=== PATIENT | male | born 1965 | race Caucasian/White ===

== ENCOUNTER 2017-06-03 10:43 | Emergency (ER) | payer OTHER ==
[2017-06-03] MEDS ORDERED: Hydromorphone 1 mg/ml Ampule IV ONE (11:02)
[2017-06-03] MEDS ORDERED: BENADRYL 50 MG/ML IV ONE (11:02)
[2017-06-03] MEDS ORDERED: BENADRYL 50 MG/ML ONE (11:08)
[2017-06-03] MEDS ORDERED: Lactated Ringers 1,000 ML IV ONE (11:09)
[2017-06-03] MEDS ORDERED: Hydromorphone 1 mg/ml Ampule ONE (11:09)
[2017-06-03 11:27] LABS: BASOPHIL % 0.4 % (0.0-0.4); Eosinophil % 5.3 % (0.00-5.0); Granulocytes % 58.9 % (36.0-66.0); Lymphocytes % 26.4 % (24.0-44.0); Mean Cell Volume 94.5 fl (78-100); Mean Corpuscular Hemoglobin 31.2 pg (26-32); Platelet Count 381 K/mm3 (150-450); Red Blood Count 3.97 M/mm3 (4.1-5.6); Red Cell Distribution Width 13.6 % (11.5-14.0); White Blood Count 8.9 K/mm3 (4.0-10.5)
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
[2017-06-03] MEDS ORDERED: Lactated Ringers 1,000 ML IV SCH (11:30)
[2017-06-03 11:43] LABS: INR 0.93 (0.8-3.0); PROTIME 10.5 SECONDS (8.83-12.87)
[2017-06-03 11:45] LABS: PTT 34.3 SECONDS (24.1-36.1)
[2017-06-03 11:53] LABS: ALKALINE PHOSPHATASE 74 U/L (46-116); ANION GAP 12.9 MEQ/L (5-15); BLOOD UREA NITROGEN 17 mg/dL (9-20); CHLORIDE 105 mEq/L (98-107); Glucose 103 MG/DL (70-110); Potassium 4.2 mEq/L (3.5-5.1); SGOT/AST 25 U/L (15-37); SGPT/ALT 24 U/L (12-78); SODIUM 139 mEq/L (136-145); Total Protein 7.2 gm/dL (6.4-8.2)
[2017-06-03 11:57] VITALS: BP 142/99; PULSE 76
--- NOTE | 2017-06-03 12:18 | XRAY ---
Indication: Pain following fall. Comparison: None 3 views of the right shoulder demonstrates tiny humeral head bone island and a few pulmonary calcified granulomas. No other bony, articular, or soft tissue abnormalities.
--- NOTE | 2017-06-03 12:28 | XRAY ---
Indication: Pain following crush injury. Multiple contiguous axial images obtained through the chest using 80 cc Isovue 370 contrast. Comparison: None Lungs demonstrates mild bilateral pulmonary emphysema with biapical subpleural cystic changes. There are scattered bilateral calcified granulomas. In the superior segment of the right lower lobe, there is a subpleural spiculated mass measuring 1.3 x 1.2 x 1.7 cm worrisome for malignancy. Same mass demonstrates chunky central calcification suggesting granulomatous. Minimal bilateral dependent atelectasis. No infiltrate, consolidation, or effusion. Heart is not enlarged. Aorta is normal in course and caliber. No pathologic mediastinal/hilar lymphadenopathy. Bony thorax intact. Limited upper abdomen including adrenal glands are unremarkable. Impression: 1. Right lower lobe spiculated mass worrisome for malignancy. [place] calcification suggests granulomatous as there is also evidence for old granulomatous disease elsewhere. PET/CT may yield further information. 2. Pulmonary emphysema and biapical subpleural cystic changes. 3. No acute cardiopulmonary abnormalities or fracture. CT DI 13.21
[2017-06-03 13:18] VITALS: O2SAT 97
== END 2017-06-03 13:11 | disposition home or self-care (01) ==
LOC: ED 10:43
DX: S20.211A Contusion of right front wall of thorax, initial encounter (principal); W24.0XXA Contact with lifting devices, not elsewhere classified, initial encounter
CPT/HCPCS: 36000; 36415; 71260; 73030; 80053; 82550; 85025; 85610; 85730; 96360; 96361; 99284; J1170; J1200

== ENCOUNTER 2020-03-22 07:50 | Day surgery (SDC) | payer OTHER ==
[2013-07-01 17:22] VITALS: BP 120/80
[2020-03-22] MEDS ORDERED: Depo-Medrol 40 MG/ML IM ONE (07:51)
[2020-03-22] MEDS ORDERED: Sodium Chloride 0.9(Preservative Free) 10 ML IJ ONE (07:51)
[2020-03-22] MEDS ORDERED: Ketamine HCl 50 MG/ML ONE (09:42)
[2020-03-22] MEDS ORDERED: DIPRIVAN 200 MG/20 ML IV ONE (09:42)
[2020-03-22] MEDS ORDERED: Lactated Ringers 1,000 ML IV ONE (12:49)
--- NOTE | 2020-03-22 14:29 | XRAY ---
22 seconds fluoroscopy time in surgery for left L4-S1 transforaminal ABIGAIL.
--- NOTE | 2020-03-25 21:13 | XRAY ---
Indication: Left transforaminal L4-S1 ABIGAIL. Intraoperative fluoroscopy was provided for 22 seconds. 4 digital spot images submitted for interpretation demonstrate 2 posterior needle tips projected over the expected course of the left L4 and L5 nerve roots. A small amount of contrast has been injected for needle placement. Correlate with intraoperative findings/report.
== END 2020-03-22 10:12 | disposition home or self-care (01) ==
LOC: SDC-PAIN 07:50
PROVIDERS: ATTEND Psychiatry & Neurology Pain Medicine
DX: M54.16 Radiculopathy, lumbar region (principal); E11.9 Type 2 diabetes mellitus without complications; J44.9 Chronic obstructive pulmonary disease, unspecified; I10 Essential (primary) hypertension; I25.10 Atherosclerotic heart disease of native coronary artery without angina pectoris; Z79.899 Other long term (current) drug therapy
CPT/HCPCS: 64483; 64484; 72100; 77003; 82962; J1030; J2704; Q9966

== ENCOUNTER 2020-11-19 17:43 | Emergency (ER) | payer OTHER ==
[2020-11-19] MEDS ORDERED: Lasix 40 MG/4 ML IV ONE (18:03)
[2020-11-19] MEDS ORDERED: solu-MEDROL 125 MG IV ONE (18:03)
[2020-11-19] MEDS ORDERED: DUONEB 0.5-3 MG/3 ml Neb IH ONE ×2 (18:03→18:12)
[2020-11-19] MEDS ORDERED: BABY ASPIRIN 81 MG CHEW PO ONE (18:05)
[2020-11-19] MEDS ORDERED: solu-MEDROL 125 MG ONE (18:10)
[2020-11-19] MEDS ORDERED: Lasix 40 MG/4 ML ONE (18:10)
[2020-11-19] MEDS ORDERED: BABY ASPIRIN 81 MG CHEW ONE (18:10)
[2020-11-19 18:35] LABS: Hematocrit 42.8 % (42-50); Hemoglobin 13.5 gm/dl (12.5-18.0); Mean Cell Volume 94.5 fl (78-100); Mean Corpuscular Hemoglobin 29.8 pg (26-32); Mean Corpuscular Hgb Concent. 31.5 g/dl (32-36); Mean Platelet Volume 10.3 fl (7.5-11.0); Platelet Count 440 K/mm3 (150-450); Red Blood Count 4.53 M/mm3 (4.1-5.6); Red Cell Distribution Width 13.9 % (11.5-14.0)
[2020-11-19 18:45] LABS: INR 1.38 (0.8-3.0); PROTIME 15.7 SECONDS (8.83-12.87)
--- NOTE | 2020-11-19 18:50 | ERPHSYRPT ---
- History of Present Illness Source: patient Exam Limitations: no limitations Patient Subjective Stated Complaint: Pt began having shortness of breath on Friday and began having thomas chest pain yesterday, hx of CHF Triage Nursing Assessment: Pt was brought to the ER by a friend, hypertensive, tachycardic, short of breath, no edema, rates thomas chest pain as 05/22, skin n/w/d , lungs clear Timing/Duration: day(s), gradual onset, worse Activities at Onset: activity, rest Severity of Dyspnea-Max: moderate Severity of Dyspnea-Current: moderate Possible Cause: occasional episodes Modifying Factors: Improves With: rest. Worsens With: coughing, exertion Associated Symptoms: constant, cough, chest pain/discomfort, wheezing, heaviness, productive cough, tightness Hx Tetanus, Diphtheria Vaccination/Date Given: Yes (2008) Hx Influenza Vaccination/Date Given: No Hx Pneumococcal Vaccination/Date Given: No <ROBIN CHANCE - Last Filed: 11/19/20 18:46> <LUCIA BOWLING - Last Filed: 11/19/20 22:43> - History of Present Illness Time Seen by Provider: 11/19/20 17:48 Physician History: 55 years old male with history of status post stenting, congestive heart failure, COPD, tobacco abuse, CKD, chronic liver disease presented in the ER with 2 days history of progressively increasing shortness of breath and cough productive of clear to yellow sputum. Patient report initial shortness of breath with activity and now even at resting since yesterday and is also having substernal chest pain/tightness mild to moderate intensity which is aggravated with coughing and activity. Denies any fever or chills. Denies any sick contact. Patient denies any lower extremity swelling. He has taken oral Lasix today as well but did not seem helping. Patient does not take Lasix regularly. Patient reports symptoms similar to last time when he was in CHF exacerbation. (ROBIN CHANCE) Allergies/Adverse Reactions: codeine Adverse Reaction (Severe, Verified 11/19/20 17:57) black out varenicline tartrate [From Chantix] Adverse Reaction (Mild, Verified 11/19/20 17:57) Rash Penicillins Adverse Reaction (Verified 11/19/20 17:57) unsure but thinks is allergic Home Medications: Furosemide 40 mg [Lasix 40 MG] 1 ea DAILY 11/19/20 [History] Hydralazine HCl 1 ea DAILY 11/19/20 [History] Lisinopril 5 mg [Zestril 5 MG] 1 ea DAILY 11/19/20 [History] Metoprolol Succinate 50 mg [Toprol Xl 50 MG] 1 ea DAILY 11/19/20 [History] Travel Risk - International Travel Have you traveled outside of the country in past 3 weeks: No - Coronavirus Screening Are you exhibiting any of the following symptoms?: Yes Symptoms: Shortness of Breath Close contact with a COVID-19 positive Pt in past 14-21 Days: No <ROBIN CHANCE - Last Filed: 11/19/20 18:46> - Review of Systems Constitutional: Fatigue, Weakness Eyes: No Symptoms Ears, Nose, & Throat: No Symptoms Respiratory: Cough, Dyspnea, Dyspnea on Exertion (GILES), Wheezing Cardiac: Chest Pain Abdominal/Gastrointestinal: No Symptoms Genitourinary Symptoms: No Symptoms Musculoskeletal: Myalgias Skin: No Symptoms Neurological: No Symptoms Psychological: No Symptoms Hematologic/Lymphatic: No Symptoms Immunological/Allergic: No Symptoms <ROBIN CHANCE - Last Filed: 11/19/20 18:46> - Past Medical History Pertinent Past Medical History: Yes Cardiac History: Other Respiratory History: COPD Endocrine Medical History: Liver Disease Musculoskeletal History: Other History: Other Psycho-Social History: Depression Male Reproductive Disorders: Prostate Problems Other Medical History: states leaky heart valves x2, chronic back pain, kidney disease, liver disease - Past Surgical History Past Surgical History: Yes Cardiac: Cardiac Catheterization Gastrointestinal: Hernia Repair Musculoskeletal: Orthopedic Surgery Other Surgical History: knee surgery ,hernia, left wrist - Social History Smoking Status: Former smoker Exposure to second hand smoke: Yes Drug Use: marijuana Patient Lives Alone: Yes <ROBIN CHANCE - Last Filed: 11/19/20 18:46> - Physical Exam General Appearance: mild distress, alert Eye Exam: PERRL/EOMI, eyes nml inspection Ears, Nose, Throat Exam: hearing grossly normal, nasal congestion, pharyngeal erythema Neck Exam: normal inspection, non-tender, supple, full range of motion Respiratory Exam: respiratory distress, accessory muscle use, rhonchi, wheezing Cardiovascular/Chest Exam: normal heart sounds, regular rate/rhythm Abdominal/Gastrointestinal Exam: soft, normal bowel sounds, No tenderness Extremity Exam: non-tender, normal range of motion, normal inspection Neurologic Exam: alert, oriented x 3, cooperative Skin Exam: normal color SpO2 Interpretation: normal SpO2: 99 O2 Delivery: Room Air <ROBIN CHANCE - Last Filed: 11/19/20 18:46> - Nursing Vital Signs Nursing Vital Signs: Initial Vital Signs Temperature 97.6 F 11/19/20 17:44 Pulse Rate 94 H 11/19/20 17:44 Respiratory Rate 31 H 11/19/20 17:44 Blood Pressure 145/122 11/19/20 17:44 O2 Sat by Pulse Oximetry 99 11/19/20 17:44 Pain Scale Pain Intensity 2 - Course EKG Interpreted by Me: RATE (93), Sinus Rhythm, NORMAL AXIS, NORMAL INTERVALS, Other (LVH. Nonspecific ST changes) <ROBIN CHANCE - Last Filed: 11/19/20 18:46> - Course Nursing assessment & vital signs reviewed: Yes - Radiology Exams Chest X-ray Interpretation: Interpreted by me, No Pneumonia - CT Exams Chest CT Interpretation: Tele-radiologist Report (Severe paraseptal emphysema. No pulmonary embolus or aortic dissection. Moderate centrilobular emphysema.) <LUCIA BOWLING - Last Filed: 11/19/20 22:43> Ordered Tests: Active Orders 24 hr Category Date Time Status Chimney [employer] Helper STAT Care 11/19/20 18:04 Active EKG-ER Only STAT Care 11/19/20 18:03 Active EKG-ER Only STAT Care 11/19/20 22:13 Active IV Insertion STAT Care 11/19/20 18:03 Active CHEST 1 VIEW (PORTABLE) Stat Exams 11/19/20 18:16 Taken CHEST WITH CONTRAST [CT] Stat Exams 11/19/20 20:45 Taken BLOOD CULTURE Stat Lab 11/19/20 18:31 Received CBC W DIFF Stat Lab 11/19/20 18:31 Completed CMP Stat Lab 11/19/20 18:31 Completed D-DIMER QUANTITATIVE Stat Lab 11/19/20 18:00 Completed Lactic Acid Stat Lab 11/19/20 18:15 Completed Lactic Acid Stat Lab 11/19/20 20:20 Completed MAGNESIUM Stat Lab 11/19/20 18:31 Completed Manual Differential NC Stat Lab 11/19/20 18:31 Completed NT PRO BNP Stat Lab 11/19/20 18:31 Completed POCT GLUCOSE Stat Lab 11/19/20 17:54 Completed PROTIME WITH INR Stat Lab 11/19/20 18:31 Completed PTT Stat Lab 11/19/20 18:31 Completed TROPONIN Q3H Lab 11/19/20 18:31 Completed TROPONIN Q3H Lab 11/19/20 21:28 Completed TROPONIN Q3H Lab 11/20/20 00:15 Ordered TROPONIN Q3H Lab 11/20/20 03:15 Ordered TROPONIN Q3H Lab 11/20/20 06:15 Ordered UA W/RFX UR CULTURE Stat Lab 11/19/20 18:33 Completed Respiratory Therapy Assessment DAILY RT 11/19/20 18:22 Active Medication Summary Discontinued Medications Generic Name Dose Route Start Last Admin Trade Name Freq PRN Reason Stop Dose Admin Albuterol/Ipratropium 3 ml 11/19/20 18:03 11/19/20 18:13 Duoneb 0.5-3 Mg/3 Ml Neb IH 11/19/20 18:04 3 ml STAT ONE Administration Albuterol/Ipratropium Confirm 11/19/20 18:12 Duoneb 0.5-3 Mg/3 Ml Neb Administered 11/19/20 18:13 Dose 3 ml IH .STK-MED ONE Aspirin 324 mg 11/19/20 18:05 11/19/20 18:13 Baby Aspirin 81 Mg Chew PO 11/19/20 18:06 324 mg STAT ONE Administration Aspirin Confirm 11/19/20 18:10 Baby Aspirin 81 Mg Chew Administered 11/19/20 18:11 Dose 324 mg .ROUTE .STK-MED ONE Furosemide 40 mg 11/19/20 18:03 11/19/20 18:13 Lasix 40 Mg/4 Ml IV 11/19/20 18:04 40 mg STAT ONE Administration Furosemide Confirm 11/19/20 18:10 Lasix 40 Mg/4 Ml Administered 11/19/20 18:11 Dose 40 mg .ROUTE .STK-MED ONE Methylprednisolone Sodium Succinate 125 mg 11/19/20 18:03 11/19/20 18:13 Solu-Medrol 125 Mg IV 11/19/20 18:04 125 mg STAT ONE Administration Methylprednisolone Sodium Succinate Confirm 11/19/20 18:10 Solu-Medrol 125 Mg Administered 11/19/20 18:11 Dose 125 mg .ROUTE .STK-MED ONE Nitroglycerin 0.4 mg 11/19/20 22:20 11/19/20 22:27 Nitrostat 0.4 Mg (Ed) SL 11/19/20 22:21 0.4 mg STAT ONE Administration Lab/Rad Data: Laboratory Result Diagrams 11/19/20 18:31 11/19/20 18:31 Laboratory Results 11/19/20 11/19/20 11/19/20 Range/Units 21:28 20:20 18:33 WBC (4.0-10.5) K/mm3 RBC (4.1-5.6) M/mm3 Hgb (12.5-18.0) gm/dl Hct (42-50) % MCV (78-100) fl MCH (26-32) pg MCHC (32-36) g/dl RDW (11.5-14.0) % Plt Count (150-450) K/mm3 MPV (7.5-11.0) fl Segmented Neutrophils (36.-66.) % Lymphocytes (Manual) (24-44) % Monocytes (Manual) (0.0-12.0) % Eosinophils (Manual) (0.00-3.0) % Basophils (Manual) (0.0-1.0) % Platelet Estimate (NORMAL) RBC Morphology PT (8.83-12.87) SECONDS INR (0.8-3.0) APTT (24.1-36.1) SECONDS D-Dimer (215-500) ng/mL Sodium (137-145) mmol/L Potassium (3.5-5.1) mmol/L Chloride (98-107) mmol/L Carbon Dioxide (22-30) mmol/L Anion Gap (5-15) MEQ/L BUN (9-20) mg/dL Creatinine (0.66-1.25) mg/dL Estimated GFR ML/MIN Glucose (74-106) mg/dL POC Glucometer (74 to 106) mg/dL Lactic Acid 2.1 H (0.4-2.0) Calcium (8.4-10.2) mg/dL Magnesium (1.6-2.3) mg/dL Total Bilirubin (0.2-1.3) mg/dL AST (17-59) U/L ALT (0-50) U/L Alkaline Phosphatase (38-126) U/L Troponin I 0.044 H* (0.000-0.034) ng/mL NT-Pro-B Natriuret Pep (0-900) pg/mL Serum Total Protein (6.3-8.2) g/dL Albumin (3.5-5.0) g/dL Urine Color STRAW (YELLOW) Urine Appearance CLEAR (CLEAR) Urine pH 6.0 (5-6) Ur Specific [place] 1.005 (1.005-1.025) Urine Protein NEGATIVE (Negative) Urine Ketones NEGATIVE (NEGATIVE) Urine Blood NEGATIVE (0-5) Thuan/ul Urine Nitrite NEGATIVE (NEGATIVE) Urine Bilirubin NEGATIVE (NEGATIVE) Urine Urobilinogen 2 (0-1) mg/dL Ur Leukocyte Esterase NEGATIVE (NEGATIVE) Urine WBC (Auto) 0-2 (0-5) /HPF Urine RBC (Auto) NONE (0-2) /HPF U Hyaline Cast (Auto) 0-2 (0-2) /LPF U Epithel Cells (Auto) RARE (FEW) /HPF Urine Bacteria (Auto) NONE SEEN (NEGATIVE) /HPF Urine Culture Reflexed NO (NO) Urine Glucose NEGATIVE (NEGATIVE) mg/dL 11/19/20 11/19/20 11/19/20 Range/Units 18:31 18:31 18:31 WBC (4.0-10.5) K/mm3 RBC (4.1-5.6) M/mm3 Hgb (12.5-18.0) gm/dl Hct (42-50) % MCV (78-100) fl MCH (26-32) pg MCHC (32-36) g/dl RDW (11.5-14.0) % Plt Count (150-450) K/mm3 MPV (7.5-11.0) fl Segmented Neutrophils (36.-66.) % Lymphocytes (Manual) (24-44) % Monocytes (Manual) (0.0-12.0) % Eosinophils (Manual) (0.00-3.0) % Basophils (Manual) (0.0-1.0) % Platelet Estimate (NORMAL) RBC Morphology PT 15.7 H (8.83-12.87) SECONDS INR 1.38 (0.8-3.0) APTT 31.1 (24.1-36.1) SECONDS D-Dimer (215-500) ng/mL Sodium 137 (137-145) mmol/L Potassium 4.2 (3.5-5.1) mmol/L Chloride 104 (98-107) mmol/L Carbon Dioxide 23 (22-30) mmol/L Anion Gap 13.9 (5-15) MEQ/L BUN 21 H (9-20) mg/dL Creatinine 1.15 (0.66-1.25) mg/dL Estimated GFR > 60.0 ML/MIN Glucose 106 (74-106) mg/dL POC Glucometer (74 to 106) mg/dL Lactic Acid (0.4-2.0) Calcium 9.5 (8.4-10.2) mg/dL Magnesium 1.7 (1.6-2.3) mg/dL Total Bilirubin 2.10 H (0.2-1.3) mg/dL AST 145 H (17-59) U/L ALT 166 H (0-50) U/L Alkaline Phosphatase 120 (38-126) U/L Troponin I 0.045 H* (0.000-0.034) ng/mL NT-Pro-B Natriuret Pep 4460 H (0-900) pg/mL Serum Total Protein 6.9 (6.3-8.2) g/dL Albumin 3.9 (3.5-5.0) g/dL Urine Color (YELLOW) Urine Appearance (CLEAR) Urine pH (5-6) Ur Specific [place] (1.005-1.025) Urine Protein (Negative) Urine Ketones (NEGATIVE) Urine Blood (0-5) Thuan/ul Urine Nitrite (NEGATIVE) Urine Bilirubin (NEGATIVE) Urine Urobilinogen (0-1) mg/dL Ur Leukocyte Esterase (NEGATIVE) Urine WBC (Auto) (0-5) /HPF Urine RBC (Auto) (0-2) /HPF U Hyaline Cast (Auto) (0-2) /LPF U Epithel Cells (Auto) (FEW) /HPF Urine Bacteria (Auto) (NEGATIVE) /HPF Urine Culture Reflexed (NO) Urine Glucose (NEGATIVE) mg/dL 02/07/21 02/07/21 02/07/21 Range/Units 18:31 18:15 18:00 WBC 13.0 H (4.0-10.5) K/mm3 RBC 4.53 (4.1-5.6) M/mm3 Hgb 13.5 (12.5-18.0) gm/dl Hct 42.8 (42-50) % MCV 94.5 (78-100) fl MCH 29.8 (26-32) pg MCHC 31.5 L (32-36) g/dl RDW 13.9 (11.5-14.0) % Plt Count 440 (150-450) K/mm3 MPV 10.3 (7.5-11.0) fl Segmented Neutrophils 69 H (36.-66.) % Lymphocytes (Manual) 19 L (24-44) % Monocytes (Manual) 8 (0.0-12.0) % Eosinophils (Manual) 2 (0.00-3.0) % Basophils (Manual) 2 H (0.0-1.0) % Platelet Estimate NORMAL (NORMAL) RBC Morphology NORMAL PT (8.83-12.87) SECONDS INR (0.8-3.0) APTT (24.1-36.1) SECONDS D-Dimer 2347 H* (215-500) ng/mL Sodium (137-145) mmol/L Potassium (3.5-5.1) mmol/L Chloride (98-107) mmol/L Carbon Dioxide (22-30) mmol/L Anion Gap (5-15) MEQ/L BUN (9-20) mg/dL Creatinine (0.66-1.25) mg/dL Estimated GFR ML/MIN Glucose (74-106) mg/dL POC Glucometer (74 to 106) mg/dL Lactic Acid 2.2 H (0.4-2.0) Calcium (8.4-10.2) mg/dL Magnesium (1.6-2.3) mg/dL Total Bilirubin (0.2-1.3) mg/dL AST (17-59) U/L ALT (0-50) U/L Alkaline Phosphatase (38-126) U/L Troponin I (0.000-0.034) ng/mL NT-Pro-B Natriuret Pep (0-900) pg/mL Serum Total Protein (6.3-8.2) g/dL Albumin (3.5-5.0) g/dL Urine Color (YELLOW) Urine Appearance (CLEAR) Urine pH (5-6) Ur Specific [place] (1.005-1.025) Urine Protein (Negative) Urine Ketones (NEGATIVE) Urine Blood (0-5) Thuan/ul Urine Nitrite (NEGATIVE) Urine Bilirubin (NEGATIVE) Urine Urobilinogen (0-1) mg/dL Ur Leukocyte Esterase (NEGATIVE) Urine WBC (Auto) (0-5) /HPF Urine RBC (Auto) (0-2) /HPF U Hyaline Cast (Auto) (0-2) /LPF U Epithel Cells (Auto) (FEW) /HPF Urine Bacteria (Auto) (NEGATIVE) /HPF Urine Culture Reflexed (NO) Urine Glucose (NEGATIVE) mg/dL 11/19/20 Range/Units 17:54 WBC (4.0-10.5) K/mm3 RBC (4.1-5.6) M/mm3 Hgb (12.5-18.0) gm/dl Hct (42-50) % MCV (78-100) fl MCH (26-32) pg MCHC (32-36) g/dl RDW (11.5-14.0) % Plt Count (150-450) K/mm3 MPV (7.5-11.0) fl Segmented Neutrophils (36.-66.) % Lymphocytes (Manual) (24-44) % Monocytes (Manual) (0.0-12.0) % Eosinophils (Manual) (0.00-3.0) % Basophils (Manual) (0.0-1.0) % Platelet Estimate (NORMAL) RBC Morphology PT (8.83-12.87) SECONDS INR (0.8-3.0) APTT (24.1-36.1) SECONDS D-Dimer (215-500) ng/mL Sodium (137-145) mmol/L Potassium (3.5-5.1) mmol/L Chloride (98-107) mmol/L Carbon Dioxide (22-30) mmol/L Anion Gap (5-15) MEQ/L BUN (9-20) mg/dL Creatinine (0.66-1.25) mg/dL Estimated GFR ML/MIN Glucose (74-106) mg/dL POC Glucometer 97 (74 to 106) mg/dL Lactic Acid (0.4-2.0) Calcium (8.4-10.2) mg/dL Magnesium (1.6-2.3) mg/dL Total Bilirubin (0.2-1.3) mg/dL AST (17-59) U/L ALT (0-50) U/L Alkaline Phosphatase (38-126) U/L Troponin I (0.000-0.034) ng/mL NT-Pro-B Natriuret Pep (0-900) pg/mL Serum Total Protein (6.3-8.2) g/dL Albumin (3.5-5.0) g/dL Urine Color (YELLOW) Urine Appearance (CLEAR) Urine pH (5-6) Ur Specific [place] (1.005-1.025) Urine Protein (Negative) Urine Ketones (NEGATIVE) Urine Blood (0-5) Thuan/ul Urine Nitrite (NEGATIVE) Urine Bilirubin (NEGATIVE) Urine Urobilinogen (0-1) mg/dL Ur Leukocyte Esterase (NEGATIVE) Urine WBC (Auto) (0-5) /HPF Urine RBC (Auto) (0-2) /HPF U Hyaline Cast (Auto) (0-2) /LPF U Epithel Cells (Auto) (FEW) /HPF Urine Bacteria (Auto) (NEGATIVE) /HPF Urine Culture Reflexed (NO) Urine Glucose (NEGATIVE) mg/dL - Progress Blood Culture(s) Obtained: Yes <ROBIN CHANCE - Last Filed: 11/19/20 18:46> - Progress Discussed with : Other (Spoke with Dr. Maciel([id number]) who accepted pt for transfer to [facility] as a direct admission.) Counseled pt/family regarding: lab results, diagnosis, rad results <LUCIA BOWLING - Last Filed: 11/19/20 22:43> - Progress Progress Note: 11/19/20 18:50 55 years old is evaluated for increasing shortness of breath and chest pain. EKG showed normal sinus rhythm with no acute ST elevations. He is given DuoNeb and steroid along with 40 mg IV Lasix. Patient is feeling mild improvement on reevaluation after neb treatment. Care is transferred to Dr. Bowling at shift change for reevaluation and final disposition. (ROBIN CHANCE) 11/19/20 20:[address] Bowling @ 1951: perrl, eomi, pharynx minimally erythematous, lungs clear at this time, no cardiac rub, abdominal b.s. normal, no ankle edema, alert & cooperative. Pt states he has had right sided abdominal pain. 11/19/20 22:28 Repeat EKG @ 2220: sinus rhythm @ 77/min, normal axis, LVH, non-specific ST changes. (LUCIA BOWLING) <ROBIN CHANCE - Last Filed: 11/19/20 18:46> - Departure Departure Disposition: Transfer ([facility]) Critical Care Time: No <LUCIA BOWLING - Last Filed: 11/19/20 22:43> - Departure Clinical Impression: Chest pain, shortness of air, Elevated d-dimer, elevated troponin, elevated AST, ALT, BILIRUBIN, COPD (chronic obstructive pulmonary disease), Depression Condition: Stable Referrals: ALPESH MACIEL [Primary Care Provider] - Instructions: Chronic Obstructive Pulmonary Disease
[2020-11-19 18:59] LABS: ALBUMIN 3.9 g/dL (3.5-5.0); ALKALINE PHOSPHATASE 120 U/L (38-126); ANION GAP 13.9 MEQ/L (5-15); BLOOD UREA NITROGEN 21 mg/dL (9-20); CHLORIDE 104 mmol/L (98-107); Calcium 9.5 mg/dL (8.4-10.2); Carbon Dioxide 23 mmol/L (22-30); Creatinine 1 1.15 mg/dL (0.66-1.25); EST GLOMERULAR FILTRATION RATE > 60.0 ML/MIN; Glucose 106 mg/dL (74-106); MAGNESIUM 1.7 mg/dL (1.6-2.3); NT PRO BNP 4460 pg/mL (0-900); Potassium 4.2 mmol/L (3.5-5.1); SGOT/AST 145 U/L (17-59); SGPT/ALT 166 U/L (0-50); SODIUM 137 mmol/L (137-145); Total Protein 6.9 g/dL (6.3-8.2)
[2020-11-19 19:39] LABS: PTT 31.1 SECONDS (24.1-36.1)
[2020-11-19 20:01] LABS: Basophil 2 % (0.0-1.0); Eosinophil 2 % (0.00-3.0); Lymphocytes 19 % (24-44); Monocyte 8 % (0.0-12.0); Neutrophils 69 % (36.-66.); Platelet Estimate NORMAL (NORMAL); Total Cells Counted 100
[2020-11-19 20:21] LABS: Appearance CLEAR (CLEAR); Bacteria NONE SEEN /HPF (NEGATIVE); Bilirubin NEGATIVE (NEGATIVE); Blood NEGATIVE Ery/ul (0-5); Epithelial Cells RARE /HPF (FEW); Glucose NEGATIVE (NEGATIVE); Hyaline Casts 0-2 /LPF (0-2); Ketones NEGATIVE (NEGATIVE); Leukocyte Esterase NEGATIVE (NEGATIVE); Nitrite NEGATIVE (NEGATIVE); Protein,Urine Dip NEGATIVE (Negative); Specific Gravity 1.005 (1.005-1.025); Urobilinogen 2 mg/dL (0-1); WBC 0-2 /HPF (0-5)
[2020-11-19] MEDS ORDERED: Nitrostat 0.4 MG (ED) SL ONE (22:20)
[2020-11-20 01:06] VITALS: BP 137/91; PULSE 78; O2SAT 97
--- NOTE | 2020-11-20 09:09 | XRAY ---
Indication: Short of breath, bilateral chest pain, tachycardia, and elevated d-dimer. Multiple contiguous axial images obtained through the chest using 100 cc Isovue 370 contrast and PE protocol. Comparison: June 03, 2017. There is good opacification of the pulmonary arteries to include the lobar and segmental branches. No pulmonary embolus. Heart is not enlarged. Aorta is normal in course and caliber. Again tiny mediastinal calcified nodes. No pathologic mediastinal/hilar lymphadenopathy. Lungs again demonstrates advanced diffuse pulmonary emphysema with biapical subpleural cystic changes and scattered bilateral calcified granulomas. The posterior right lower lobe subpleural partially calcified spiculated mass appears unchanged. No new pulmonary mass, infiltrate, or effusion. Bony thorax intact. Limited upper abdomen including adrenal glands are unremarkable. Impression: 1. Negative pulmonary embolus. No new/acute cardiopulmonary abnormalities. 3. Stable pulmonary emphysema, biapical subpleural cystic changes, right lower lobe subpleural calcified spiculated mass, and old granulomatous disease. Comment: Preliminary interpretation was made by [facility]. No critical discrepancy.
--- NOTE | 2020-11-20 09:11 | XRAY ---
Indication: Chest pain. Comparison: None Portable chest hyperinflated with scattered calcific granulomas. No focal infiltrate, consolidation, or large effusion. Heart is not enlarged. Bony thorax intact with right shoulder degenerative arthropathy. Impression: Nonacute hyperinflated chest with chronic features.
== END 2020-11-20 00:54 | disposition short-term general hospital (02) ==
LOC: ED 17:43
DX: R07.89 Other chest pain (principal); R06.02 Shortness of breath; R79.1 Abnormal coagulation profile; R77.8 Other specified abnormalities of plasma proteins; R74.01 Elevation of levels of liver transaminase levels; E80.6 Other disorders of bilirubin metabolism; J44.9 Chronic obstructive pulmonary disease, unspecified; F32.9 Major depressive disorder, single episode, unspecified; I50.9 Heart failure, unspecified; Z72.0 Tobacco use; N18.9 Chronic kidney disease, unspecified; K76.89 Other specified diseases of liver; R05 Cough; Z79.899 Other long term (current) drug therapy
CPT/HCPCS: 36000; 36415; 71045; 71260; 80053; 81001; 82947; 83605; 83735; 83880; 84484; 85025; 85379; 85610; 85730; 87040; 93005; 93041; 94640; 96374; 96375; 99285; J1940; J2930; A9270-GY

== ENCOUNTER 2021-12-26 02:10 | Emergency (ER) | payer OTHER ==
[2021-12-26] MEDS ORDERED: Sodium Chloride 0.9% 1000 ML 1,000 ML IV STA (02:33)
[2021-12-26] MEDS ORDERED: Hydromorphone 1 mg/ml Injection IV ONE (02:33)
[2021-12-26] MEDS ORDERED: Zofran 4 MG/2 ML VIAL IV ONE (02:33)
[2021-12-26] MEDS ORDERED: Hydromorphone 1 mg/ml Injection ONE (02:37)
[2021-12-26] MEDS ORDERED: Sodium Chloride 0.9% 1000 ML 1,000 ML ONE (02:37)
[2021-12-26] MEDS ORDERED: Zofran 4 MG/2 ML VIAL ONE (02:37)
--- NOTE | 2021-12-26 02:38 | ERPHSYRPT ---
- History of Present Illness Time Seen by Provider: 12/26/21 02:25 Historian: patient Exam Limitations: no limitations Patient Subjective Stated Complaint: pt states he has been having rt side abd pain for last week. tonight has been worse. states he has intermittent nausea and vomited once last night. states abd is tender and feels bloated. Triage Nursing Assessment: pt alert and oriented, answers questions approp. pt ambulatory with slow steady gait noted. skin warm and dry. pt short of breath with exertion. abd bloated, tender to rt abd with light palpation. bowel sounds present Physician History: This is a 56-year-old white male who presents with right-sided, cramping abdominal pain that is been present for approximately week. He has had intermittent episodes of nausea vomiting and diarrhea. He is still having bowel movements. He has noticed no hematemesis or bright red blood per rectum. He has never had a colonoscopy in the past. He has never had this kind of pain in the past. He has had no prior abdominal surgeries. Patient has a history of hypertension, COPD, CHF, coronary artery disease and chronic liver disease. Timing/Duration: week(s) (1), intermittent, worse Activities at Onset: none Quality: aching, cramping Abdominal Pain Onset Location: RUQ, RLQ Severity of Pain-Max: moderate Severity of Pain-Current: mild (To moderate) Modifying Factors: Improves With: vomiting (Once yesterday) Associated Symptoms: diarrhea, loss of appetite, nausea, vomiting, No chest pain, No fever/chills, No shortness of breath Previous symptoms: no prior history Allergies/Adverse Reactions: varenicline tartrate [From Chantix] Allergy (Severe, Verified 12/26/21 02:31) Swelling codeine Adverse Reaction (Severe, Verified 12/26/21 02:31) black out Penicillins Adverse Reaction (Verified 12/26/21 02:31) unsure but thinks is allergic Home Medications: Lisinopril 5 mg [Zestril 5 MG] 1 ea PO DAILY 11/19/20 [History] Albuterol 2.5 mg/3 ml Neb [Proventil 2.5 mg/3 ml Neb] 2.5 mg IH Q4-6HPRN PRN 12/26/21 [History] Albuterol 8 gm Mdi Hfa [Ventolin Hfa MDI] 18 gm IH Q4-6HPRN PRN 12/26/21 [History] Carvedilol 6.25 mg [Coreg 6.25 MG] 6.25 mg PO BID 12/26/21 [History] Hx Tetanus, Diphtheria Vaccination/Date Given: Yes Hx Influenza Vaccination/Date Given: No Hx Pneumococcal Vaccination/Date Given: No Immunizations Up to Date: Yes Travel Risk - International Travel Have you traveled outside of the country in past 3 weeks: No - Coronavirus Screening Are you exhibiting any of the following symptoms?: No Close contact with a COVID-19 positive Pt in past 14-21 Days: No - Vaccine Status Have you recieved a Covid-19 vaccination: Yes Patient Carrier: Unknown - Vaccination Dates Dates if Unknown: 2020 - Review of Systems Constitutional: No Symptoms Eyes: No Symptoms Ears, Nose, & Throat: No Symptoms Respiratory: No Symptoms Cardiac: No Symptoms Abdominal/Gastrointestinal: Abdominal Pain (Right side), Nausea, Vomiting, Diarrhea, No Constipation Genitourinary Symptoms: No Symptoms Musculoskeletal: No Symptoms Skin: No Symptoms Neurological: No Symptoms Psychological: No Symptoms Endocrine: No Symptoms Hematologic/Lymphatic: No Symptoms Immunological/Allergic: No Symptoms - Past Medical History Pertinent Past Medical History: Yes Cardiac History: Other Respiratory History: COPD Endocrine Medical History: Liver Disease Musculoskeletal History: Other History: Other Psycho-Social History: Depression Male Reproductive Disorders: Prostate Problems Other Medical History: states leaky heart valves x2, chronic back pain, kidney disease, liver disease - Past Surgical History Past Surgical History: Yes Cardiac: Cardiac Catheterization Gastrointestinal: Hernia Repair Musculoskeletal: Orthopedic Surgery Other Surgical History: knee surgery ,hernia, left wrist - Social History Smoking Status: Light tobacco smoker How long have you smoked: yrs Exposure to second hand smoke: Yes Drug Use: none Patient Lives Alone: Yes - Nursing Vital Signs Nursing Vital Signs: Initial Vital Signs Temperature 97.1 F 12/26/21 02:14 Pulse Rate 77 12/26/21 02:14 Respiratory Rate 22 12/26/21 02:14 Blood Pressure 156/115 12/26/21 02:14 O2 Sat by Pulse Oximetry 100 12/26/21 02:14 Pain Scale Pain Intensity 4 - Physical Exam General Appearance: no apparent distress, alert, anxiety Eye Exam: PERRL/EOMI, eyes nml inspection Ears, Nose, Throat Exam: normal ENT inspection, moist mucous membranes Neck Exam: normal inspection, non-tender, supple, full range of motion Respiratory Exam: normal breath sounds, lungs clear, airway intact, No chest tenderness, No respiratory distress Cardiovascular Exam: regular rate/rhythm, normal heart sounds, normal peripheral pulses Gastrointestinal/Abdomen Exam: soft, normal bowel sounds, tenderness (Right side. 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 tested, normal mood/affect, nml cerebellar function, nml station & gait, sensation nml Skin Exam: normal color, warm, dry Lymphatic Exam: No adenopathy SpO2 Interpretation: normal SpO2: 100 O2 Delivery: Room Air - Course Nursing assessment & vital signs reviewed: Yes Ordered Tests: Active Orders 24 hr Category Date Time Status IV Insertion STAT Care 12/26/21 02:33 Active ABDOMEN AND PELVIS W/0 CONTRAS [CT] Stat Exams 12/26/21 03:09 Taken AMYLASE Stat Lab 12/26/21 02:58 Completed CBC W DIFF Stat Lab 12/26/21 02:58 Completed CMP Stat Lab 12/26/21 02:58 Completed LIPASE Stat Lab 12/26/21 02:58 Completed Lactic Acid Stat Lab 12/26/21 02:50 Completed Lactic Acid Stat Lab 12/26/21 04:58 Received UA W/RFX UR CULTURE Stat Lab 12/26/21 04:06 Completed Medication Summary Discontinued Medications Generic Name Dose Route Start Last Admin Trade Name Freq PRN Reason Stop Dose Admin Hydromorphone HCl 1 mg 12/26/21 02:33 12/26/21 02:40 Hydromorphone 1 Mg/1ml Inj 1 Mg/Ml Syringe IV 12/26/21 02:34 1 mg STAT ONE Administration Hydromorphone HCl Confirm 12/26/21 02:37 Hydromorphone 1 Mg/1ml Inj 1 Mg/Ml Syringe Administered 12/26/21 02:38 Dose 1 mg .ROUTE .STK-MED ONE Sodium Chloride 1,000 mls @ 999 mls/hr 12/26/21 02:33 12/26/21 04:14 Sodium Chloride 0.9% 1000 Ml IV 12/26/21 03:33 Infused .Q1H1M STA Infusion Sodium Chloride Confirm 12/26/21 02:37 Sodium Chloride 0.9% 1000 Ml Administered 12/26/21 02:38 Dose 1,000 mls @ ud .ROUTE .STK-MED ONE Levofloxacin/Dextrose 500 mg in 100 mls @ 100 mls/hr 12/26/21 04:25 12/26/21 04:30 Levofloxacin 500mg/100ml D5w IV 12/26/21 05:24 100 ml/hr STAT STA 100 mls/hr Administration Levofloxacin/Dextrose Confirm 12/26/21 04:28 Levofloxacin 500mg/100ml D5w Administered 12/26/21 04:29 Dose 500 mg in 100 mls @ ud IV .STK-MED ONE Metronidazole 500 mg 12/26/21 04:26 12/26/21 04:31 Metronidazole 500 Mg Tablet PO 12/26/21 04:27 500 mg STAT ONE Administration Metronidazole Confirm 12/26/21 04:28 Metronidazole 500 Mg Tablet Administered 12/26/21 04:29 Dose 500 mg .ROUTE .STK-MED ONE Ondansetron HCl 4 mg 12/26/21 02:33 12/26/21 02:41 Ondansetron Hcl 4 Mg/2 Ml Vial IV 12/26/21 02:34 4 mg STAT ONE Administration Ondansetron HCl Confirm 12/26/21 02:37 Ondansetron Hcl 4 Mg/2 Ml Vial Administered 12/26/21 02:38 Dose 4 mg .ROUTE .STK-MED ONE Lab/Rad Data: Laboratory Result Diagrams 12/26/21 02:58 12/26/21 02:58 Laboratory Results 12/26/21 12/26/21 12/26/21 Range/Units 04:06 02:58 02:58 WBC 8.0 (4.0-10.5) K/mm3 RBC 4.60 (4.1-5.6) M/mm3 Hgb 12.8 (12.5-18.0) gm/dl Hct 40.7 L (42-50) % MCV 88.5 (78-100) fl MCH 27.8 (26-32) pg MCHC 31.4 L (32-36) g/dl RDW 19.9 H (11.5-14.0) % Plt Count 295 (150-450) K/mm3 MPV 9.0 (7.5-11.0) fl Gran % 63.0 (36.0-66.0) % Eos # (Auto) 0.18 (0-0.5) Absolute Lymphs (auto) 1.63 (1.0-4.6) Absolute Monos (auto) 1.04 (0.0-1.3) Lymphocytes % 20.3 L (24.0-44.0) % Monocytes % 12.9 H (0.0-12.0) % Eosinophils % 2.2 (0.00-5.0) % Basophils % 1.6 (0.0-0.4) % Absolute Granulocytes 5.06 (1.4-6.9) Basophils # 0.13 (0-0.4) Sodium 136 L (137-145) mmol/L Potassium 4.2 (3.5-5.1) mmol/L Chloride 102 (98-107) mmol/L Carbon Dioxide 26 (22-30) mmol/L Anion Gap 12.2 (5-15) MEQ/L BUN 24 H (9-20) mg/dL Creatinine 1.25 (0.66-1.25) mg/dL Estimated GFR > 60.0 ML/MIN Glucose 96 (74-106) mg/dL Lactic Acid (0.4-2.0) Calcium 8.6 (8.4-10.2) mg/dL Total Bilirubin 2.70 H (0.2-1.3) mg/dL AST 45 (17-59) U/L ALT 31 (0-50) U/L Alkaline Phosphatase 150 H (38-126) U/L Serum Total Protein 6.8 (6.3-8.2) g/dL Albumin 3.6 (3.5-5.0) g/dL Amylase 53 (30-110) U/L Lipase 49 (23-300) U/L Urine Color RON (YELLOW) Urine Appearance CLEAR (CLEAR) Urine pH 6.0 (5-6) Ur Specific [place] 1.020 (1.005-1.025) Urine Protein 100 (Negative) Urine Ketones NEGATIVE (NEGATIVE) Urine Blood NEGATIVE (0-5) Thuan/ul Urine Nitrite NEGATIVE (NEGATIVE) Urine Bilirubin NEGATIVE (NEGATIVE) Urine Urobilinogen 2 (0-1) mg/dL Ur Leukocyte Esterase NEGATIVE (NEGATIVE) Urine WBC (Auto) 0-2 (0-5) /HPF Urine RBC (Auto) 0-2 (0-2) /HPF U Epithel Cells (Auto) NONE (FEW) /HPF Urine Bacteria (Auto) NONE SEEN (NEGATIVE) /HPF Urine Mucus (Auto) SLIGHT (NEGATIVE) /HPF Urine Culture Reflexed NO (NO) Urine Glucose NEGATIVE (NEGATIVE) mg/dL 12/26/21 Range/Units 02:50 WBC (4.0-10.5) K/mm3 RBC (4.1-5.6) M/mm3 Hgb (12.5-18.0) gm/dl Hct (42-50) % MCV (78-100) fl MCH (26-32) pg MCHC (32-36) g/dl RDW (11.5-14.0) % Plt Count (150-450) K/mm3 MPV (7.5-11.0) fl Gran % (36.0-66.0) % Eos # (Auto) (0-0.5) Absolute Lymphs (auto) (1.0-4.6) Absolute Monos (auto) (0.0-1.3) Lymphocytes % (24.0-44.0) % Monocytes % (0.0-12.0) % Eosinophils % (0.00-5.0) % Basophils % (0.0-0.4) % Absolute Granulocytes (1.4-6.9) Basophils # (0-0.4) Sodium (137-145) mmol/L Potassium (3.5-5.1) mmol/L Chloride (98-107) mmol/L Carbon Dioxide (22-30) mmol/L Anion Gap (5-15) MEQ/L BUN (9-20) mg/dL Creatinine (0.66-1.25) mg/dL Estimated GFR ML/MIN Glucose (74-106) mg/dL Lactic Acid 2.2 H (0.4-2.0) Calcium (8.4-10.2) mg/dL Total Bilirubin (0.2-1.3) mg/dL AST (17-59) U/L ALT (0-50) U/L Alkaline Phosphatase (38-126) U/L Serum Total Protein (6.3-8.2) g/dL Albumin (3.5-5.0) g/dL Amylase (30-110) U/L Lipase (23-300) U/L Urine Color (YELLOW) Urine Appearance (CLEAR) Urine pH (5-6) Ur Specific [place] (1.005-1.025) Urine Protein (Negative) Urine Ketones (NEGATIVE) Urine Blood (0-5) Htuan/ul Urine Nitrite (NEGATIVE) Urine Bilirubin (NEGATIVE) Urine Urobilinogen (0-1) mg/dL Ur Leukocyte Esterase (NEGATIVE) Urine WBC (Auto) (0-5) /HPF Urine RBC (Auto) (0-2) /HPF U Epithel Cells (Auto) (FEW) /HPF Urine Bacteria (Auto) (NEGATIVE) /HPF Urine Mucus (Auto) (NEGATIVE) /HPF Urine Culture Reflexed (NO) Urine Glucose (NEGATIVE) mg/dL - Progress Progress: improved, pain not gone completely, re-examined Progress Note: 12/26/21 05:27 CAT scan of the abdomen pelvis without contrast shows small bowel wall thickening consistent with enteritis. There is free pelvic fluid. No free air is noted. Patient states he is feeling much better. Patient can take hydrocodone. He has had this medication in the past. Counseled pt/family regarding: lab results, diagnosis, need for follow-up, rad results - Departure Departure Disposition: Home Clinical Impression: Enteritis Condition: Stable Critical Care Time: No Referrals: ALPESH RAMIRES [Primary Care Provider] - Follow up/PCP as directed Additional Instructions: Drink plenty of clear liquids. Do not advance diet until you are tolerating clear liquids well. Take medication as prescribed. Follow-up with your primary care physician for further management Prescriptions: Hydrocodone/APAP 5/325 [Mustang 5/325 mg] 1 each PO Q8H PRN PRN #7 tablet MDD 3 PRN Reason: Pain Ciprofloxacin [Cipro 500 MG] 500 mg PO BID #14 tablet Metronidazole 500 mg [Flagyl 500 MG] 500 mg PO TID #21 tablet
[2021-12-26 03:01] LABS: Absolute Neutrophil Ct (ANC) 5.06 (1.4-6.9); Basophil (Absolute #) 0.13 (0-0.4); Eosinophil % 2.2 % (0.00-5.0); Eosinophil (Absolute #) 0.18 (0-0.5); Hematocrit 40.7 % (42-50); Hemoglobin 12.8 gm/dl (12.5-18.0); Lymphocyte (Absolute #) 1.63 (1.0-4.6); Lymphocytes % 20.3 % (24.0-44.0); Mean Cell Volume 88.5 fl (78-100); Mean Corpuscular Hemoglobin 27.8 pg (26-32); Mean Corpuscular Hgb Concent. 31.4 g/dl (32-36); Monocyte (Absolute #) 1.04 (0.0-1.3); Monocytes % 12.9 % (0.0-12.0); Platelet Count 295 K/mm3 (150-450); Red Cell Distribution Width 19.9 % (11.5-14.0)
[2021-12-26 03:12] LABS: ALBUMIN 3.6 g/dL (3.5-5.0); ALKALINE PHOSPHATASE 150 U/L (38-126); AMYLASE 53 U/L (30-110); ANION GAP 12.2 MEQ/L (5-15); BLOOD UREA NITROGEN 24 mg/dL (9-20); CHLORIDE 102 mmol/L (98-107); Calcium 8.6 mg/dL (8.4-10.2); Carbon Dioxide 26 mmol/L (22-30); Creatinine 1 1.25 mg/dL (0.66-1.25); EST GLOMERULAR FILTRATION RATE > 60.0 ML/MIN; Glucose 96 mg/dL (74-106); LIPASE 49 U/L (23-300); Potassium 4.2 mmol/L (3.5-5.1); SGOT/AST 45 U/L (17-59); SGPT/ALT 31 U/L (0-50); SODIUM 136 mmol/L (137-145); Total Protein 6.8 g/dL (6.3-8.2)
[2021-12-26 04:16] LABS: Appearance CLEAR (CLEAR); Bilirubin NEGATIVE (NEGATIVE); Blood NEGATIVE Ery/ul (0-5); Glucose NEGATIVE (NEGATIVE); Ketones NEGATIVE (NEGATIVE); Leukocyte Esterase NEGATIVE (NEGATIVE); Mucus SLIGHT /HPF (NEGATIVE); Nitrite NEGATIVE (NEGATIVE); Protein,Urine Dip 100 (Negative); RBC 0-2 /HPF (0-2); Urobilinogen 2 mg/dL (0-1); WBC 0-2 /HPF (0-5)
[2021-12-26 04:19] LABS: Bacteria NONE SEEN /HPF (NEGATIVE)
[2021-12-26] MEDS ORDERED: Levofloxacin 500MG/100ML D5W 500 MG/100 ML BAG IV STA (04:25)
[2021-12-26] MEDS ORDERED: Flagyl 500 MG PO ONE (04:26)
[2021-12-26] MEDS ORDERED: Flagyl 500 MG ONE (04:28)
[2021-12-26] MEDS ORDERED: Levofloxacin 500MG/100ML D5W 500 MG/100 ML BAG IV ONE (04:28)
[2021-12-26 05:41] VITALS: BP 122/82; PULSE 75; O2SAT 95
--- NOTE | 2021-12-26 08:40 | XRAY ---
Indication: Right abdomen pain, nausea, vomiting, diarrhea. Multiple contiguous axial images obtained through the abdomen and pelvis without contrast. Comparison: None Lung bases demonstrates pulmonary emphysema. There are a few tiny calcified/noncalcified micronodules favored to be granulomatous. No infiltrate or effusion. Heart is borderline enlarged. Noncontrasted stomach and bowel loops appear nonobstructed. Mild small bowel and lesser degree large bowel wall thickening favoring enterocolitis. Small pelvic free fluid presumed reactive. No free air. Normal appendix. Liver is borderline enlarged measuring 18.9 cm and demonstrates subtle heterogeneity. Gallbladder partially contracted without gallstones. Remaining liver, gallbladder, pancreas, spleen, adrenal glands, kidneys, ureters, and bladder are unremarkable for noncontrast exam. Mild scattered aortoiliac calcifications without AAA. Osseous structures intact with minimal degenerative changes throughout the spine. No ventral or inguinal hernias. Impression: 1. Small and large bowel wall thickening favoring enterocolitis. Small pelvic free fluid presumed reactive. 2. Subtle heterogeneous liver. CT liver with contrast exam may yield further information. 3. Incidental pulmonary emphysema, arteriosclerotic disease, chronic bony findings, and old granulomatous disease. Comment: Preliminary interpretation made by [facility]. No critical discrepancy.
== END 2021-12-26 05:57 | disposition home or self-care (01) ==
LOC: ED 02:10
DX: K52.9 Noninfective gastroenteritis and colitis, unspecified (principal); R10.31 Right lower quadrant pain; R10.11 Right upper quadrant pain; R11.2 Nausea with vomiting, unspecified; I10 Essential (primary) hypertension; Z72.0 Tobacco use; Z79.891 Long term (current) use of opiate analgesic; Z79.899 Other long term (current) drug therapy
CPT/HCPCS: 36000; 36415; 74176; 80053; 81001; 82150; 83605; 83690; 85025; 96374; 96375; 99284; J1170; J1956; J2405; A9270-GY

== ENCOUNTER 2022-02-04 08:53 | Emergency (ER) | payer OTHER ==
[2022-02-04] MEDS ORDERED: CLONIDINE 0.1 MG TABLET PO ONE (09:26)
[2022-02-04] MEDS ORDERED: CLONIDINE 0.1 MG TABLET ONE (09:34)
--- NOTE | 2022-02-04 09:35 | ERPHSYRPT ---
- History of Present Illness Source: patient Exam Limitations: no limitations Patient Subjective Stated Complaint: PT states "I had allot of water on my body and got that taken care of and now I have this spot on my right knee and it hurts." Triage Nursing Assessment: Pt presented alert and oriented X 3, skin pwd. Pt ambulates with an upright steady gait. PT right knee has swollen spot on his right knee. not red, no warm. Physician History: 56 yo wm w R pre-tibial bursa edema x 3 days. Pt denies trauma and states that knee is mildly painful. 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 Method of Injury: unknown (No injury) Occurred: days ago (3 days ago) Quality: constant Severity of Pain-Max: mild Severity of Pain-Current: mild Lower Extremities Pain: knee: right Modifying Factors: Improves With: nothing, movement Associated Symptoms: No unable to bear weight Allergies/Adverse Reactions: varenicline tartrate [From Chantix] Allergy (Severe, Verified 12/26/21 02:31) Swelling codeine Adverse Reaction (Severe, Verified 12/26/21 02:31) black out Penicillins Adverse Reaction (Verified 12/26/21 02:31) unsure but thinks is allergic Home Medications: Lisinopril 5 mg [Zestril 5 MG] 1 ea PO DAILY 11/19/20 [History] Albuterol 2.5 mg/3 ml Neb [Proventil 2.5 mg/3 ml Neb] 2.5 mg IH Q4-6HPRN PRN 12/26/21 [History] Albuterol 8 gm Mdi Hfa [Ventolin Hfa MDI] 18 gm IH Q4-6HPRN PRN 12/26/21 [History] Carvedilol 6.25 mg [Coreg 6.25 MG] 6.25 mg PO BID 12/26/21 [History] Hx Tetanus, Diphtheria Vaccination/Date Given: Yes Hx Influenza Vaccination/Date Given: No Hx Pneumococcal Vaccination/Date Given: No Immunizations Up to Date: Yes Travel Risk - International Travel Have you traveled outside of the country in past 3 weeks: No - Coronavirus Screening Are you exhibiting any of the following symptoms?: No Close contact with a COVID-19 positive Pt in past 14-21 Days: No - Vaccine Status Have you recieved a Covid-19 vaccination: Yes Atm Technician: 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 - Vaccination Dates Dates if Unknown: 2020 - Review of Systems Constitutional: No Symptoms Eyes: No Symptoms Ears, Nose, & Throat: No Symptoms Respiratory: No Symptoms Cardiac: No Symptoms Abdominal/Gastrointestinal: No Symptoms Genitourinary Symptoms: No Symptoms Skin: No Symptoms Neurological: No Symptoms Psychological: No Symptoms Endocrine: No Symptoms Hematologic/Lymphatic: No Symptoms Immunological/Allergic: No Symptoms - Past Medical History Pertinent Past Medical History: Yes Cardiac History: Other Respiratory History: COPD Endocrine Medical History: Liver Disease Musculoskeletal History: Other History: Other Psycho-Social History: Depression Male Reproductive Disorders: Prostate Problems Other Medical History: states leaky heart valves x2, chronic back pain, kidney disease, liver disease - Past Surgical History Past Surgical History: Yes Cardiac: Cardiac Catheterization Gastrointestinal: Hernia Repair Musculoskeletal: Orthopedic Surgery Other Surgical History: knee surgery ,hernia, left wrist - Social History Smoking Status: Light tobacco smoker How long have you smoked: yrs Exposure to second hand smoke: Yes Drug Use: none Patient Lives Alone: Yes Significant Family History: no pertinent family hx - Nursing Vital Signs Nursing Vital Signs: Initial Vital Signs Temperature 98.0 F 02/04/22 09:03 Pulse Rate 65 02/04/22 09:03 Respiratory Rate 22 02/04/22 09:03 Blood Pressure 188/136 02/04/22 09:03 O2 Sat by Pulse Oximetry 98 02/04/22 09:03 Pain Scale Pain Intensity 0 Hypertyensive - Physical Exam General Appearance: no apparent distress Eyes, Ears, Nose, Throat Exam: normal ENT inspection, TMs normal, pharynx normal, moist mucous membranes Neck Exam: normal inspection, non-tender, supple, full range of motion, No Brudzinski, No Kernig's, No meningismus Cardiovascular/Respiratory Exam: normal breath sounds, regular rate/rhythm, murmur (3/6 POLO) Gastrointestinal/Abdominal Exam: non-tender, soft Back Exam: normal inspection, normal range of motion Hips Exam: bilateral: non-tender, normal inspection, normal range of motion Legs Exam: bilateral leg: non-tender, normal inspection, normal range of motion Knees Exam: right knee: swelling (R pre-tibial fluid collection consistant w bur sitis) Ankle Exam: bilateral ankle: non-tender, normal inspection, normal range of motion, no evidence of injury Foot Exam: bilateral foot: non-tender, normal inspection, normal range of motion, no evidence of injury Neuro/Tendon Exam: normal sensation, normal motor functions, normal tendon functions, responds to pain, no evidence tendon injury, No motor deficit, No sensory deficit Mental Status Exam: alert, oriented x 3, cooperative Skin Exam: normal color, warm, dry SpO2 Interpretation: normal SpO2: 98 O2 Delivery: Room Air - Course Nursing assessment & vital signs reviewed: Yes Ordered Tests: Active Orders 24 hr Category Date Time Status CULTURE,WOUND Stat Lab 02/04/22 09:27 Ordered Medication Summary Discontinued Medications Generic Name Dose Route Start Last Admin Trade Name Eliazar PRN Reason Stop Dose Admin Clonidine 0.2 mg 02/04/22 09:26 02/04/22 09:34 Clonidine Hcl 0.1 Mg Tablet PO 02/04/22 09:27 0.2 mg STAT ONE Administration Clonidine Confirm 02/04/22 09:34 Clonidine Hcl 0.1 Mg Tablet Administered 02/04/22 09:35 Dose 0.2 mg .ROUTE .STK-MED ONE Nitroglycerin 0.4 mg 02/04/22 10:56 02/04/22 11:01 Nitroglycerin 0.4 Mg Tablet Bottle SL 02/04/22 10:57 0.4 mg STAT ONE Administration Nitroglycerin Confirm 02/04/22 11:00 Nitroglycerin 0.4 Mg (Ed) 0.4 Mg Tab.Subl Administered 02/04/22 11:01 Dose 0.4 mg SL .STK-MED ONE - Progress Progress: improved Progress Note: 02/04/22 09:35 Verbal consent obtained R pre-tibial bursa w betadine prep Local anesthesia 1% Lido wo epi 10ml drained from R pre-tibial bursa which was not purulent Pt's pain much better No comps Fluid sent to lab for culture 02/04/22 11:33 0.2 po Clonidine w minimal improvement in BP 0.4 SL NTG w improvement in BP Counseled pt/family regarding: diagnosis, need for follow-up - Departure Departure Disposition: Home Clinical Impression: Patellar bursitis of right knee, Hypertensive urgency Condition: Stable Critical Care Time: No Referrals: ALPESH RAMIRES [Primary Care Provider] - Follow up/PCP as directed Instructions: Prepatellar Bursitis (DC) Additional Instructions: Follow up with your family MD in 1-2 days Take your blood pressure meds when you get home Start Doxycycline twice a day for 5 days Return to ER for increasing right knee swelling or pain Motrin/Tylenol for pain Prescriptions: Doxycycline Monohydrate 100 mg PO BID 5 Days #10
[2022-02-04] MEDS ORDERED: Nitrostat 0.4 MG Tablet SL ONE (10:56)
[2022-02-04] MEDS ORDERED: Nitrostat 0.4 MG (ED) SL ONE (11:00)
[2022-02-04 11:35] VITALS: BP 144/106; PULSE 72
[2022-02-04 11:36] VITALS: O2SAT 98
== END 2022-02-04 11:42 | disposition home or self-care (01) ==
LOC: ED 08:53
DX: M70.41 Prepatellar bursitis, right knee (principal); I16.0 Hypertensive urgency; I10 Essential (primary) hypertension; M25.561 Pain in right knee; J44.9 Chronic obstructive pulmonary disease, unspecified; Z72.0 Tobacco use; Z79.899 Other long term (current) drug therapy
CPT/HCPCS: 20610; 87070; 99284; A9270-GY

== ENCOUNTER 2023-11-11 07:28 | Emergency (ER) | payer OTHER ==
[2023-11-11 07:35] VITALS: TEMP 98.8
[2023-11-11] MEDS ORDERED: TORAdol 30 mg Injection IV ONE (08:00)
[2023-11-11] MEDS ORDERED: TORAdol 30 mg Injection ONE (08:09)
[2023-11-11] MEDS ORDERED: Sodium Chloride 0.9% 1000 ML 1,000 ML IV STA ×2 (08:24→12:17)
--- NOTE | 2023-11-11 08:29 | ERPHSYRPT ---
- History of Present Illness Time Seen by Provider: 11/11/23 07:50 Historian: patient Exam Limitations: no limitations Patient Subjective Stated Complaint: Pt states "I think my appendix has finally gone. My belly is killing me and has hurt for three days." Triage Nursing Assessment: Pt presented alert and oriented X 3, skin pwd. PT ambulates with an upright steady gait, able to speak in clear full sentences. Pt resting on the bed holding his lower right quadrant. Physician History: Patient is a 58-year-old male presents to emergency department for evaluation of right lower quadrant pain. Symptoms started approximately 3 days ago. Symptoms have been progressive. Patient unable to tolerate p.o. No trauma. Patient currently afebrile. Patient slightly hypertensive. Pain described as an ache that is localized. No radiation. Pain worse with palpation and movement. Pain improved with rest. Patient denies history of the same. He voices no other complaints or concerns at this time. Patient reports that he has not been compliant with his home medications as he ran out. Patient states he ran out 1 month ago. Portions of this note were created with voice recognition technology. There may be grammatical, spelling, punctuation or sound alike errors Timing/Duration: day(s) (3 days) Activities at Onset: none Quality: aching Abdominal Pain Onset Location: RLQ Pain Radiation: no radiation Severity of Pain-Max: moderate Severity of Pain-Current: mild Modifying Factors: Improves With: movement, palpation Associated Symptoms: loss of appetite Previous symptoms: no prior history Allergies/Adverse Reactions: varenicline tartrate [From Chantix] Allergy (Severe, Verified 12/26/21 02:31) Swelling codeine Adverse Reaction (Severe, Verified 12/26/21 02:31) black out Penicillins Adverse Reaction (Verified 12/26/21 02:31) unsure but thinks is allergic Home Medications: Lisinopril 5 mg [Zestril 5 MG] 1 ea PO DAILY 11/19/20 [History] Albuterol 2.5 mg/3 ml Neb [Proventil 2.5 mg/3 ml Neb] 2.5 mg IH Q4-6HPRN PRN 12/26/21 [History] Albuterol 8 gm Mdi Hfa [Ventolin Hfa MDI] 18 gm IH Q4-6HPRN PRN 12/26/21 [History] Carvedilol [Coreg 6.25 MG] 6.25 mg PO BID 12/26/21 [History] Hx Tetanus, Diphtheria Vaccination/Date Given: Yes Hx Influenza Vaccination/Date Given: No Hx Pneumococcal Vaccination/Date Given: No Immunizations Up to Date: No Travel Risk - International Travel Have you traveled outside of the country in past 3 weeks: No - Coronavirus Screening Are you exhibiting any of the following symptoms?: No Close contact with a COVID-19 positive Pt in past 14-21 Days: No - Vaccine Status Have you recieved a Covid-19 vaccination: Yes 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 - Vaccination Dates Dates if Unknown: 2020 - Review of Systems Constitutional: No Symptoms, No Fever, No Chills Eyes: No Symptoms Ears, Nose, & Throat: No Symptoms Respiratory: No Symptoms, No Cough, No Dyspnea Cardiac: No Symptoms, No Chest Pain, No Edema, No Syncope Abdominal/Gastrointestinal: No Symptoms, No Abdominal Pain, No Nausea, No Vomiting, No Diarrhea Genitourinary Symptoms: No Symptoms, No Dysuria Musculoskeletal: No Symptoms, No Back Pain, No Neck Pain Skin: No Symptoms, No Rash Neurological: No Symptoms, No Dizziness, No Focal Weakness, No Sensory Changes Psychological: No Symptoms Endocrine: No Symptoms Hematologic/Lymphatic: No Symptoms Immunological/Allergic: No Symptoms All Other Systems: Reviewed and Negative - Past Medical History Pertinent Past Medical History: Yes Cardiac History: Hypertension, Other Respiratory History: COPD Endocrine Medical History: Liver Disease Musculoskeletal History: Other History: Other Psycho-Social History: Depression Male Reproductive Disorders: Prostate Problems Other Medical History: states leaky heart valves x2, chronic back pain, kidney disease, liver disease - Past Surgical History Past Surgical History: Yes Cardiac: Cardiac Catheterization Gastrointestinal: Hernia Repair Musculoskeletal: Orthopedic Surgery Other Surgical History: knee surgery ,hernia, left wrist - Social History Smoking Status: Light tobacco smoker How long have you smoked: yrs Exposure to second hand smoke: Yes Drug Use: none Patient Lives Alone: Yes Significant Family History: no pertinent family hx - Nursing Vital Signs Nursing Vital Signs: Initial Vital Signs Temperature 98.8 F 11/11/23 07:29 Pulse Rate 91 H 11/11/23 07:29 Respiratory Rate 24 11/11/23 07:29 Blood Pressure 171/122 11/11/23 07:29 O2 Sat by Pulse Oximetry 99 11/11/23 07:29 Pain Scale Pain Intensity 0 - Physical Exam General Appearance: no apparent distress, alert Eye Exam: PERRL/EOMI, eyes nml inspection Ears, Nose, Throat Exam: normal ENT inspection, pharynx normal, moist mucous m embranes Neck Exam: normal inspection, non-tender, supple, full range of motion Respiratory Exam: normal breath sounds, lungs clear, airway intact, No respiratory distress Cardiovascular Exam: regular rate/rhythm, normal heart sounds, normal peripheral pulses Gastrointestinal/Abdomen Exam: soft, No tenderness, No mass Back Exam: normal inspection, normal range of motion, No CVA tenderness, No vertebral tenderness Extremity Exam: normal inspection, normal range of motion, pelvis stable Neurologic Exam: alert, oriented x 3, cooperative, normal mood/affect, nml cerebellar function, sensation nml, No motor deficits Skin Exam: normal color, warm, dry Lymphatic Exam: No adenopathy SpO2 Interpretation: normal SpO2: 100 O2 Delivery: Room Air - Course Nursing assessment & vital signs reviewed: Yes EKG Interpreted by Me: RATE ([id number]), Sinus Rhythm, NORMAL AXIS, NORMAL INTERVALS Ordered Tests: Active Orders 24 hr Category Date Time Status IV Insertion STAT Care 11/11/23 08:00 Active ABDOMEN AND PELVIS W/0 CONTRAS [CT] Stat Exams 11/11/23 08:00 Completed CBC W DIFF Stat Lab 11/11/23 07:46 Completed CMP Stat Lab 11/11/23 07:46 Completed CMP Stat Lab 11/11/23 12:30 Completed Lactic Acid Stat Lab 11/11/23 08:00 Completed Lactic Acid Stat Lab 11/11/23 10:11 Completed TROPONIN Q4H Lab 11/11/23 07:46 Completed TROPONIN Q4H Lab 11/11/23 12:05 Completed TROPONIN Q4H Lab 11/11/23 16:35 Received UA W/RFX UR CULTURE Stat Lab 11/11/23 10:20 Completed Medication Summary Discontinued Medications Generic Name Dose Route Start Last Admin Trade Name Freq PRN Reason Stop Dose Admin Aspirin 81 mg 11/11/23 15:14 11/11/23 15:16 Aspirin 81 Mg Tablet.Ec PO 11/11/23 15:15 Not Given 1XONLY ONE Aspirin 81 mg 11/11/23 15:17 11/11/23 15:17 Aspirin 81 Mg Tab.Chew PO 11/11/23 15:18 81 mg STAT ONE Administration Aspirin Confirm 11/11/23 15:15 Aspirin 81 Mg Tab.Chew Administered 11/11/23 15:16 Dose 81 mg .ROUTE .STK-MED ONE Sodium Chloride 1,000 mls @ 999 mls/hr 11/11/23 08:24 11/11/23 10:00 Sodium Chloride 0.9% 1000 Ml IV 11/11/23 09:24 Infused .Q1H1M STA Infusion Sodium Chloride Confirm 11/11/23 08:35 Sodium Chloride 0.9% 1000 Ml Administered 11/11/23 08:36 Dose 1,000 mls @ ud .ROUTE .STK-MED ONE Sodium Chloride 1,000 mls @ 999 mls/hr 11/11/23 12:17 11/11/23 13:24 Sodium Chloride 0.9% 1000 Ml IV 11/11/23 13:17 Infused .Q1H1M STA Infusion Sodium Chloride Confirm 11/11/23 12:19 Sodium Chloride 0.9% 1000 Ml Administered 11/11/23 12:20 Dose 1,000 mls @ ud .ROUTE .STK-MED ONE Ketorolac Tromethamine 30 mg 11/11/23 08:00 11/11/23 08:10 Ketorolac Tromethamine 30 Mg/Ml Inj IV 11/11/23 08:01 30 mg STAT ONE Administration Ketorolac Tromethamine Confirm 11/11/23 08:09 Ketorolac Tromethamine 30 Mg/Ml Inj Administered 11/11/23 08:10 Dose 30 mg .ROUTE .STK-MED ONE Lab/Rad Data: Laboratory Result Diagrams 11/11/23 07:46 11/11/23 12:30 Laboratory Results 11/11/23 11/11/23 11/11/23 Range/Units 12:30 12:05 10:20 WBC (4.0-10.5) x10^3/uL RBC (4.1-5.6) x10^6/uL Hgb (12.5-18.0) g/dL Hct (42-50) % MCV (78-100) fL MCH (26-32) pg MCHC (32-36) g/dL RDW (11.5-14.0) % Plt Count (150-450) x10^3/uL MPV (7.5-11.0) fL Gran % (36.0-66.0) % Immature Gran % (Auto) (0.00-0.4) % Nucleat RBC Rel Count (0.00-0.1) % Eos # (Auto) (0-0.5) x10^3/uL Immature Gran # (Auto) (0.00-0.03) x10^3u/L Absolute Lymphs (auto) (1.0-4.6) x10^3/uL Absolute Monos (auto) (0.0-1.3) x10^3/uL Absolute Nucleated RBC (0.00-0.01) x10^3u/L Lymphocytes % (24.0-44.0) % Monocytes % (0.0-12.0) % Eosinophils % (0.00-5.0) % Basophils % (0.0-0.4) % Absolute Granulocytes (1.4-6.9) x10^3/uL Basophils # (0-0.4) x10^3/uL Sodium 128 L (137-145) mmol/L Potassium 4.7 D (3.5-5.1) mmol/L Chloride 98 (98-107) mmol/L Carbon Dioxide 26 (22-30) mmol/L Anion Gap 8.6 (5-15) MEQ/L BUN 30 H (9-20) mg/dL Creatinine 1.82 H (0.66-1.25) mg/dL Estimated GFR 43.1 ML/MIN Glucose 106 (74-106) mg/dL Lactic Acid (0.4-2.0) Calcium 8.1 L (8.4-10.2) mg/dL Total Bilirubin 1.60 H (0.2-1.3) mg/dL AST 63 H (17-59) U/L ALT 31 (0-50) U/L Alkaline Phosphatase 105 (38-126) U/L Troponin I 0.357 H* (0.000-0.034) ng/mL Serum Total Protein 6.3 (6.3-8.2) g/dL Albumin 3.4 L (3.5-5.0) g/dL Urine Color Yellow (Yellow) Urine Appearance Clear (Clear) Urine pH 5.5 (4.6-8.0) Ur Specific Cost 1.020 (1.005-1.030) Urine Protein 100 A (Negative) Urine Glucose (UA) Negative (Negative) mg/dL Urine Ketones Negative (Negative) Urine Blood Negative (Negative) Urine Nitrite Negative (Negative) Urine Bilirubin Negative (Negative) Urine Urobilinogen 1.0 A (0.2) mg/dL Ur Leukocyte Esterase Negative (Negative) U Hyaline Cast (Auto) 3-5 A (0-2) /LPF Urine Microscopic RBC 0-2 (0-5) /HPF Urine Microscopic WBC 0-2 (0-5) /HPF Ur Epithelial Cells None Seen (None Seen) /HPF Urine Bacteria None Seen (None Seen) /HPF Urine Culture Reflexed NO (NO) 11/11/23 11/11/23 11/11/23 Range/Units 10:11 08:00 07:46 WBC (4.0-10.5) x10^3/uL RBC (4.1-5.6) x10^6/uL Hgb (12.5-18.0) g/dL Hct (42-50) % MCV (78-100) fL MCH (26-32) pg MCHC (32-36) g/dL RDW (11.5-14.0) % Plt Count (150-450) x10^3/uL MPV (7.5-11.0) fL Gran % (36.0-66.0) % Immature Gran % (Auto) (0.00-0.4) % Nucleat RBC Rel Count (0.00-0.1) % Eos # (Auto) (0-0.5) x10^3/uL Immature Gran # (Auto) (0.00-0.03) x10^3u/L Absolute Lymphs (auto) (1.0-4.6) x10^3/uL Absolute Monos (auto) (0.0-1.3) x10^3/uL Absolute Nucleated RBC (0.00-0.01) x10^3u/L Lymphocytes % (24.0-44.0) % Monocytes % (0.0-12.0) % Eosinophils % (0.00-5.0) % Basophils % (0.0-0.4) % Absolute Granulocytes (1.4-6.9) x10^3/uL Basophils # (0-0.4) x10^3/uL Sodium 130 L (137-145) mmol/L Potassium 3.9 (3.5-5.1) mmol/L Chloride 94 L (98-107) mmol/L Carbon Dioxide 24 (22-30) mmol/L Anion Gap 14.8 (5-15) MEQ/L BUN 29 H (9-20) mg/dL Creatinine 1.75 H (0.66-1.25) mg/dL Estimated GFR 45.1 ML/MIN Glucose 97 (74-106) mg/dL Lactic Acid 1.5 3.0 H (0.4-2.0) Calcium 8.4 (8.4-10.2) mg/dL Total Bilirubin 1.70 H (0.2-1.3) mg/dL AST 74 H (17-59) U/L ALT 36 (0-50) U/L Alkaline Phosphatase 126 (38-126) U/L Troponin I 0.334 H* (0.000-0.034) ng/mL Serum Total Protein 7.2 (6.3-8.2) g/dL Albumin 4.1 (3.5-5.0) g/dL Urine Color (Yellow) Urine Appearance (Clear) Urine pH (4.6-8.0) Ur Specific Cost (1.005-1.030) Urine Protein (Negative) Urine Glucose (UA) (Negative) mg/dL Urine Ketones (Negative) Urine Blood (Negative) Urine Nitrite (Negative) Urine Bilirubin (Negative) Urine Urobilinogen (0.2) mg/dL Ur Leukocyte Esterase (Negative) U Hyaline Cast (Auto) (0-2) /LPF Urine Microscopic RBC (0-5) /HPF Urine Microscopic WBC (0-5) /HPF Ur Epithelial Cells (None Seen) /HPF Urine Bacteria (None Seen) /HPF Urine Culture Reflexed (NO) 11/11/23 Range/Units 07:46 WBC 8.6 (4.0-10.5) x10^3/uL RBC 5.17 (4.1-5.6) x10^6/uL Hgb 15.4 (12.5-18.0) g/dL Hct 48.3 (42-50) % MCV 93.4 (78-100) fL MCH 29.8 (26-32) pg MCHC 31.9 L (32-36) g/dL RDW 14.6 H (11.5-14.0) % Plt Count 249 (150-450) x10^3/uL MPV 10.0 (7.5-11.0) fL Gran % 82.4 H (36.0-66.0) % Immature Gran % (Auto) 0.2 (0.00-0.4) % Nucleat RBC Rel Count 0.0 (0.00-0.1) % Eos # (Auto) 0 (0-0.5) x10^3/uL Immature Gran # (Auto) 0.02 (0.00-0.03) x10^3u/L Absolute Lymphs (auto) 0.67 L (1.0-4.6) x10^3/uL Absolute Monos (auto) 0.76 (0.0-1.3) x10^3/uL Absolute Nucleated RBC 0.00 (0.00-0.01) x10^3u/L Lymphocytes % 7.8 L (24.0-44.0) % Monocytes % 8.9 (0.0-12.0) % Eosinophils % 0.0 (0.00-5.0) % Basophils % 0.7 (0.0-0.4) % Absolute Granulocytes 7.05 H (1.4-6.9) x10^3/uL Basophils # 0.06 (0-0.4) x10^3/uL Sodium (137-145) mmol/L Potassium (3.5-5.1) mmol/L Chloride (98-107) mmol/L Carbon Dioxide (22-30) mmol/L Anion Gap (5-15) MEQ/L BUN (9-20) mg/dL Creatinine (0.66-1.25) mg/dL Estimated GFR ML/MIN Glucose (74-106) mg/dL Lactic Acid (0.4-2.0) Calcium (8.4-10.2) mg/dL Total Bilirubin (0.2-1.3) mg/dL AST (17-59) U/L ALT (0-50) U/L Alkaline Phosphatase (38-126) U/L Troponin I (0.000-0.034) ng/mL Serum Total Protein (6.3-8.2) g/dL Albumin (3.5-5.0) g/dL Urine Color (Yellow) Urine Appearance (Clear) Urine pH (4.6-8.0) Ur Specific Cost (1.005-1.030) Urine Protein (Negative) Urine Glucose (UA) (Negative) mg/dL Urine Ketones (Negative) Urine Blood (Negative) Urine Nitrite (Negative) Urine Bilirubin (Negative) Urine Urobilinogen (0.2) mg/dL Ur Leukocyte Esterase (Negative) U Hyaline Cast (Auto) (0-2) /LPF Urine Microscopic RBC (0-5) /HPF Urine Microscopic WBC (0-5) /HPF Ur Epithelial Cells (None Seen) /HPF Urine Bacteria (None Seen) /HPF Urine Culture Reflexed (NO) - Progress Progress: improved Progress Note: 58-year-old male presents to our ED for evaluation of abdominal pain. CT scan reveals mild enteritis. Workup reveals elevated troponin, no chest pain. Patient received low-dose aspirin secondary to kidney function. In light of patient's renal function elevated troponin patient transferred to [facility] for further evaluation and treatment. Patient auto accepted by the transfer center. Plan of care discussed with patient. He agrees to transfer to [facility] for further evaluation and treatment. Portions of this note were created with voice recognition technology. There may be grammatical, spelling, punctuation or sound alike errors Complexity problem addressed is moderate acute complicated Complexity reviewed and analyzed is extensive. Test ordered test reviewed. Results analyzed and correlated clinically with history and physical examination. Management discussed with transfer center Risk complication and or risk of morbidity/mortality of patient management is high. Patient requires transfer/hospitalization to higher level of care Vital stable. Time spent to discharge patient approximately 30 minutes. Plan of care established for shared decision making. Patient voices no other complaints or concerns at this time. Portions of this note were created with voice recognition technology. There may be grammatical, spelling, punctuation or sound alike errors 11/11/23 17:21 Counseled pt/family regarding: lab results, diagnosis, rad results - Departure Departure Disposition: Transfer Clinical Impression: Abdominal pain, Hyponatremia, Lactic acidosis, Elevated troponin, Dehydration, Left lower lobe pulmonary infiltrate, Small hiatal hernia, Enteritis, Nephrolithiasis, Noncompliance with medication regimen Condition: Stable Critical Care Time: No Referrals: DOCTOR,NO FAMILY [Primary Care Provider] - Follow up/PCP as directed
[2023-11-11] MEDS ORDERED: Sodium Chloride 0.9% 1000 ML 1,000 ML ONE ×2 (08:35→12:19)
[2023-11-11 08:53] LABS: Absolute Neutrophil Ct (ANC) 7.05 x10^3/uL (1.4-6.9); BASOPHIL % 0.7 % (0.0-0.4); Basophil (Absolute #) 0.06 x10^3/uL (0-0.4); Eosinophil (Absolute #) 0 x10^3/uL (0-0.5); Hematocrit 48.3 % (42-50); Hemoglobin 15.4 g/dL (12.5-18.0); IMMATURE GRAN # 0.02 x10^3u/L (0.00-0.03); IMMATURE GRAN % 0.2 % (0.00-0.4); Lymphocyte (Absolute #) 0.67 x10^3/uL (1.0-4.6); Lymphocytes % 7.8 % (24.0-44.0); Mean Cell Volume 93.4 fL (78-100); Mean Corpuscular Hemoglobin 29.8 pg (26-32); Mean Corpuscular Hgb Concent. 31.9 g/dL (32-36); Monocyte (Absolute #) 0.76 x10^3/uL (0.0-1.3); Monocytes % 8.9 % (0.0-12.0); Neutrophil % 82.4 % (36.0-66.0); Platelet Count 249 x10^3/uL (150-450); Red Blood Count 5.17 x10^6/uL (4.1-5.6); Red Cell Distribution Width 14.6 % (11.5-14.0); White Blood Count 8.6 x10^3/uL (4.0-10.5)
[2023-11-11 09:20] LABS: ALBUMIN 4.1 g/dL (3.5-5.0); ANION GAP 14.8 MEQ/L (5-15); BILIRUBIN,TOTAL 1.7 mg/dL (0.2-1.3); Calcium 8.4 mg/dL (8.4-10.2); Creatinine 1 1.75 mg/dL (0.66-1.25); EST GLOMERULAR FILTRATION RATE 45.1 ML/MIN; Potassium 3.9 mmol/L (3.5-5.1); Total Protein 7.2 g/dL (6.3-8.2)
[2023-11-11 09:39] LABS: TROPONIN 0.334 ng/mL (0.000-0.034)
--- NOTE | 2023-11-11 10:28 | XRAY ---
Indication: Right lower quadrant pain and burning. Multiple contiguous axial images obtained through the abdomen and pelvis without contrast. Comparison: December 26, 2021 Lung bases degraded by respiration artifact with new incompletely visualized left lower lobe interstitial alveolar opacities. Again a few bilateral calcified granulomas. Heart not enlarged. New small hiatal hernia. Noncontrasted stomach and bowel loops nonobstructed. Midabdomen demonstrates loop of jejunum with circumferential wall thickening, probable enteritis. Continued normal appendix. Left kidney again demonstrates nonobstructing punctate calculus. No free fluid/air. Remaining liver, gallbladder, pancreas, spleen, adrenal glands, kidneys, ureters, and bladder are unremarkable for noncontrast exam. Again mild scattered aortoiliac calcifications without AAA. Osseous structures intact again with mild degenerative changes throughout the lumbar spine. No ventral or inguinal hernias. Impression: 1. New incompletely visualized left lower lobe interstitial alveolar opacities. Rule out pneumonia. 2. New small hiatal hernia. 3. Midabdomen jejunal bowel wall thickening. Rule out enteritis. 4. Again chronic findings including nonobstructing left renal punctate calculus, arteriosclerotic disease, chronic bony findings, and old granulomatous disease.
[2023-11-11 10:58] LABS: Appearance Clear (Clear); Bacteria None Seen /HPF (None Seen); Bilirubin Negative (Negative); Blood Negative (Negative); Epithelial Cells None Seen /HPF (None Seen); Glucose, Urine Negative (Negative); Ketones Negative (Negative); Leukocyte Esterase Negative (Negative); Nitrite Negative (Negative); Ph 5.5 (4.6-8.0); Protein,Urine Dip 100 (Negative); RBC 0-2 /HPF (0-5); WBC 0-2 /HPF (0-5)
[2023-11-11 11:00] LABS: ADD URINE CULTURE? NO (NO)
[2023-11-11 12:14] VITALS: RESP 23
[2023-11-11 12:58] LABS: ALBUMIN 3.4 g/dL (3.5-5.0); ANION GAP 8.6 MEQ/L (5-15); BILIRUBIN,TOTAL 1.6 mg/dL (0.2-1.3); Calcium 8.1 mg/dL (8.4-10.2); Creatinine 1 1.82 mg/dL (0.66-1.25); EST GLOMERULAR FILTRATION RATE 43.1 ML/MIN; Potassium 4.7 mmol/L (3.5-5.1); Total Protein 6.3 g/dL (6.3-8.2)
[2023-11-11] MEDS ORDERED: ECOTRIN 81 MG PO ONE (15:14)
[2023-11-11] MEDS ORDERED: BABY ASPIRIN 81 MG CHEW ONE (15:15)
[2023-11-11] MEDS ORDERED: BABY ASPIRIN 81 MG CHEW PO ONE (15:17)
[2023-11-11 17:22] VITALS: BP 145/93; PULSE 81; O2SAT 100
== END 2023-11-11 17:28 | disposition short-term general hospital (02) ==
LOC: ED 07:28
DX: R10.31 Right lower quadrant pain (principal); E87.1 Hypo-osmolality and hyponatremia; E87.20 Acidosis, unspecified; R77.8 Other specified abnormalities of plasma proteins; E87.6 Hypokalemia; R91.8 Other nonspecific abnormal finding of lung field; K44.9 Diaphragmatic hernia without obstruction or gangrene; K52.9 Noninfective gastroenteritis and colitis, unspecified; N20.0 Calculus of kidney; Z91.148 Patient's other noncompliance with medication regimen for other reason; N17.9 Acute kidney failure, unspecified; I10 Essential (primary) hypertension; Z79.899 Other long term (current) drug therapy; Z72.0 Tobacco use
CPT/HCPCS: 36000; 36415; 74176; 80053; 81001; 83605; 84484; 85025; 96374; 99285; J1885; A9270-GY

== ENCOUNTER 2024-02-05 21:51 | Emergency (ER) | payer OTHER ==
[2024-02-05 22:06] VITALS: TEMP 97.6
[2024-02-05] MEDS ORDERED: Zofran 4 MG/2 ML VIAL ONE (22:23)
--- NOTE | 2024-02-05 22:23 | ERPHSYRPT ---
- History of Present Illness Time Seen by Provider: 02/05/24 21:53 Historian: patient, family Exam Limitations: no limitations Patient Subjective Stated Complaint: vomiting and abd pain x2 days Triage Nursing Assessment: pt brought back to rm 9 in wheelchair by Jinny Ware EMT-P. Pt c/o generalized abd pain x2 days, vomiting and diarrhea. Pt denies any diarrhea today. Abd soft with active bs x4 quad, tender on palpation. Pt came in on rm air with O2 sats at 86%. Placed pt on 3L n/c which he wears at home as needed. O2 sats at 97-100% at this time. Lungs coarse and diminished throughout, heart tones reg. Physician History: 58 years old male with history of hypertension, chronic respiratory failure secondary to COPD on 3 L oxygen, tobacco abuse, congestive heart failure presented in the ER with complaint of abdominal pain for the last 2 to 3 days with associated nausea vomiting and diarrhea. Patient reports multiple episodes of nonprojectile, nonbilious vomiting with no hematemesis. Also having multiple episodes of loose stool with no hematochezia or melena. Patient reports generalized abdominal pain more in the periumbilical area. Reports feeling weak fatigued tired. Per caregiver/friend patient was earlier acting mildly confused. He is not confused or altered currently and answering questions appropriately. Patient uses 3 L oxygen and was 86% on room air, placed on 3 L oxygen and improved. Has chronic smoker's cough which is not any worse than usual. Shortness of breath also not worse than usual. Caregiver does report patient having swelling around eyes noticed for last couple of days. Allergies/Adverse Reactions: varenicline tartrate [From Chantix] Allergy (Severe, Verified 02/05/24 22:18) Swelling codeine Adverse Reaction (Severe, Verified 02/05/24 22:18) black out Penicillins Adverse Reaction (Verified 02/05/24 22:18) unsure but thinks is allergic Home Medications: Albuterol 2.5 mg/3 ml Neb [Proventil 2.5 mg/3 ml Neb] 2.5 mg IH Q4-6HPRN PRN 12/26/21 [History] Albuterol 8 gm Mdi Hfa [Ventolin Hfa MDI] 18 gm IH Q4-6HPRN PRN 12/26/21 [History] Carvedilol [Coreg 6.25 MG] 3.125 mg PO BID 12/26/21 [History] Chlorpheniramine Maleate 4 mg PO DAILY 02/05/24 [History] Dapagliflozin Propanediol [Farxiga] 10 mg PO DAILY 02/05/24 [History] Furosemide 20 mg [Lasix 20 mg] 1 tab PO DAILY PRN PRN 02/05/24 [History] Mupirocin [Bactroban OINTMENT] 1 appful TOP TID 02/05/24 [History] Sertraline HCl 50 mg [Zoloft 50 mg Tablet] 1 tab PO DAILY 02/05/24 [History] Hx Tetanus, Diphtheria Vaccination/Date Given: Yes Hx Influenza Vaccination/Date Given: No Hx Pneumococcal Vaccination/Date Given: No Travel Risk - International Travel Have you traveled outside of the country in past 3 weeks: No - Emerging Infectious Disease Are you exhibiting symptoms associated with any current EIDs: Yes Symptoms: Abdominal Pain, Diarrhea, Headaches/Body Aches/, Vomitting - Review of Systems Constitutional: Fatigue, Weakness Eyes: No Symptoms Ears, Nose, & Throat: No Symptoms Respiratory: Cough, Dyspnea, Dyspnea on Exertion (GILES), Wheezing Cardiac: No Symptoms Abdominal/Gastrointestinal: Abdominal Pain, Nausea, Vomiting, Diarrhea Genitourinary Symptoms: No Symptoms Musculoskeletal: Arthralgias Skin: No Symptoms Neurological: No Symptoms Endocrine: No Symptoms Hematologic/Lymphatic: No Symptoms Immunological/Allergic: No Symptoms - Past Medical History Pertinent Past Medical History: Yes Neurological History: No Pertinent History Cardiac History: Congestive Heart Failure, Hypertension, Other Respiratory History: COPD Endocrine Medical History: Diabetes Type II, Liver Disease Musculoskeletal History: Other History: Other Psycho-Social History: Anxiety, Depression Male Reproductive Disorders: Prostate Problems Other Medical History: states leaky heart valves x2, chronic back pain, kidney disease, liver disease, wears home O2 - Past Surgical History Past Surgical History: Yes Cardiac: Cardiac Catheterization Gastrointestinal: Hernia Repair Musculoskeletal: Orthopedic Surgery Other Surgical History: bilat knee surgery ,hernia, left wrist Significant Family History: no pertinent family hx - Social History Smoking Status: Current every day smoker How long have you smoked: years Exposure to second hand smoke: Yes Drug Use: none Patient Lives Alone: Yes - Nursing Vital Signs Nursing Vital Signs: Initial Vital Signs Temperature 97.6 F 02/05/24 22:00 Pulse Rate 95 H 02/05/24 22:00 Respiratory Rate 24 02/05/24 22:00 Blood Pressure 160/110 02/05/24 22:00 O2 Sat by Pulse Oximetry 97 02/05/24 22:00 Pain Scale Pain Intensity 0 - Physical Exam General Appearance: no apparent distress, alert Eye Exam: other (Bilateral periorbital edema) Neck Exam: normal inspection, non-tender, supple, full range of motion Respiratory Exam: diminished breath sounds, rhonchi, wheezing Cardiovascular Exam: regular rate/rhythm, normal heart sounds Gastrointestinal/Abdomen Exam: normal bowel sounds, tenderness (Moderate), guarding Back Exam: normal inspection Extremity Exam: normal inspection, normal range of motion Neurologic Exam: alert, oriented x 3, cooperative, 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, normal mood/affect, nml cerebellar function, sensation nml, No motor deficits Skin Exam: normal color SpO2 Interpretation: O2 applied SpO2: 97 O2 Delivery: Nasal Cannula (3 L) - Course EKG Interpreted by Me: RATE ([id number]), Sinus Tach, NORMAL AXIS, NORMAL INTERVALS, Other (Mild ST depression and T wave inversion lateral leads) Ordered Tests: Active Orders 24 hr Category Date Time Status EKG-ER Only STAT Care 02/05/24 22:15 Active IV Insertion STAT Care 02/05/24 22:15 Active NPO (ED) STAT Care 02/05/24 22:15 Active ABDOMEN AND PELVIS W/0 CONTRAS [CT] Stat Exams 02/05/24 23:26 Completed CHEST WITHOUT CONTRAST [CT] Stat Exams 02/05/24 23:23 Completed ABG [ARTERIAL BLOOD GASES] Stat Lab 02/05/24 22:35 Completed BLOOD CULTURE Stat Lab 02/05/24 22:25 Received CBC W DIFF Stat Lab 02/05/24 22:15 Completed CMP Stat Lab 02/05/24 22:15 Completed LIPASE Stat Lab 02/05/24 22:15 Completed Lactic Acid Stat Lab 02/05/24 22:35 Completed Lactic Acid Stat Lab 02/06/24 00:48 Received NT PRO BNPII Stat Lab 02/05/24 22:15 Completed TROPONIN Q4H Lab 02/05/24 22:15 Completed TROPONIN Q4H Lab 02/06/24 02:30 Ordered TROPONIN Q4H Lab 02/06/24 06:30 Ordered UA W/RFX UR CULTURE Stat Lab 02/05/24 22:16 Ordered Respiratory Therapy Assessment DAILY RT 02/05/24 22:49 Active Medication Summary Generic Name Dose Route Start Last Admin Trade Name Eliazar PRN Reason Stop Dose Admin Sodium Chloride 1,000 mls @ 100 mls/hr 02/05/24 22:15 02/05/24 22:34 Sodium Chloride 0.9% 1000 Ml IV 03/06/24 22:14 100 mls/hr .Q10H COLBY Administration Levofloxacin/Dextrose 500 mg in 100 mls @ 100 mls/hr 02/06/24 01:41 Levofloxacin 500mg/100ml D5w IV 02/06/24 02:40 STAT STA Metronidazole 500 mg in 100 mls @ 200 mls/hr 02/06/24 01:41 Flagyl 500 Mg Ivpb IV 02/06/24 02:10 STAT STA Discontinued Medications Generic Name Dose Route Start Last Admin Trade Name Eliazar PRN Reason Stop Dose Admin Albuterol/Ipratropium 3 ml 02/05/24 22:18 02/05/24 22:42 Ipratropium/Albuterol Sulfate 3 Ml Ampul.Neb IH 02/05/24 22:19 3 ml STAT ONE Administration Albuterol/Ipratropium Confirm 02/05/24 22:26 Ipratropium/Albuterol Sulfate 3 Ml Ampul.Neb Administered 02/05/24 22:27 Dose 3 ml IH .STK-MED ONE Fentanyl Citrate 50 mcg 02/05/24 22:15 02/05/24 22:36 Fentanyl Citrate 100 Mcg/2 Ml* Vial IV 02/05/24 22:16 50 mcg STAT ONE Administration Fentanyl Citrate Confirm 02/05/24 22:24 Fentanyl Citrate 100 Mcg/2 Ml* Vial Administered 02/05/24 22:25 Dose 100 mcg .ROUTE .STK-MED ONE Nitroglycerin 0.5 gm 02/06/24 01:42 Nitroglycerin 1 Gm Packet TOP 02/06/24 01:43 STAT ONE Ondansetron HCl 4 mg 02/05/24 22:15 02/05/24 22:35 Ondansetron Hcl 4 Mg/2 Ml Vial IV 02/05/24 22:16 4 mg STAT ONE Administration Ondansetron HCl Confirm 02/05/24 22:23 Ondansetron Hcl 4 Mg/2 Ml Vial Administered 02/05/24 22:24 Dose 4 mg .ROUTE .[facility]-MED ONE Lab/Rad Data: Laboratory Result Diagrams 02/05/24 22:15 02/05/24 22:15 Laboratory Results 02/05/24 02/05/24 02/05/24 Range/Units 22:35 22:35 22:15 WBC (4.0-10.5) x10^3/uL RBC (4.1-5.6) x10^6/uL Hgb (12.5-18.0) g/dL Hct (42-50) % MCV (78-100) fL MCH (26-32) pg MCHC (32-36) g/dL RDW (11.5-14.0) % Plt Count (150-450) x10^3/uL MPV (7.5-11.0) fL Gran % (36.0-66.0) % Immature Gran % (Auto) (0.00-0.4) % Nucleat RBC Rel Count (0.00-0.1) % Eos # (Auto) (0-0.5) x10^3/uL Immature Gran # (Auto) (0.00-0.03) x10^3u/L Absolute Lymphs (auto) (1.0-4.6) x10^3/uL Absolute Monos (auto) (0.0-1.3) x10^3/uL Absolute Nucleated RBC (0.00-0.01) x10^3u/L Lymphocytes % (24.0-44.0) % Monocytes % (0.0-12.0) % Eosinophils % (0.00-5.0) % Basophils % (0.0-0.4) % Absolute Granulocytes (1.4-6.9) x10^3/uL Basophils # (0-0.4) x10^3/uL Puncture Site LEFT BRACHIAL pCO2 31 L (35-45) mmHg pO2 143 H* (75-100) mmHg Base Excess 2.4 H (-2.0-2.0) O2 Saturation 97.2 (94-100) g/dF ABG pH 7.51 H (7.35-7.45) ABG HCO3 24.7 (22-28) ABG O2 Sat (Measured) 99.3 (95-100) % [facility] Test NOT APPLICABLE A-a Gradient 46 a/A Ratio 0.76 Hemoglobin 14.2 Carboxyhemoglobin 1.3 (0.0-6.9) % THgb Methemoglobin 0.8 L (1.4-1.5) % Temperature 37.0 C POC O2 Flow Rate 32 % Sodium (135-145) mmol/L Potassium 3.9 (3.5-5.1) mmol/L Chloride (98-107) mmol/L Carbon Dioxide (22-30) mmol/L Anion Gap (5-15) MEQ/L BUN (9-20) mg/dL Creatinine (0.66-1.25) mg/dL Estimated GFR ML/MIN Glucose (74-106) mg/dL Lactic Acid 2.0 (0.4-2.0) Calcium (8.4-10.2) mg/dL Total Bilirubin (0.2-1.3) mg/dL AST (17-59) U/L ALT (0-50) U/L Alkaline Phosphatase (38-126) U/L Troponin I 0.151 H* (0.000-0.033) ng/mL NT-Pro-B Natriuret Pep 8920 (<300) pg/mL Serum Total Protein (6.3-8.2) g/dL Albumin (3.5-5.0) g/dL Lipase (23-300) U/L 02/04/03 02/ Range/Units 22:15 22:15 WBC 11.3 H (4.0-10.5) x10^3/uL RBC 4.78 (4.1-5.6) x10^6/uL Hgb 13.5 (12.5-18.0) g/dL Hct 43.0 (42-50) % MCV 90.0 (78-100) fL MCH 28.2 (26-32) pg MCHC 31.4 L (32-36) g/dL RDW 20.2 H (11.5-14.0) % Plt Count 277 (150-450) x10^3/uL MPV 9.8 (7.5-11.0) fL Gran % 78.1 H (36.0-66.0) % Immature Gran % (Auto) 0.5 H (0.00-0.4) % Nucleat RBC Rel Count 0.3 H (0.00-0.1) % Eos # (Auto) 0.03 (0-0.5) x10^3/uL Immature Gran # (Auto) 0.06 H (0.00-0.03) x10^3u/L Absolute Lymphs (auto) 1.56 (1.0-4.6) x10^3/uL Absolute Monos (auto) 0.77 (0.0-1.3) x10^3/uL Absolute Nucleated RBC 0.03 H (0.00-0.01) x10^3u/L Lymphocytes % 13.8 L (24.0-44.0) % Monocytes % 6.8 (0.0-12.0) % Eosinophils % 0.3 (0.00-5.0) % Basophils % 0.5 (0.0-0.4) % Absolute Granulocytes 8.79 H (1.4-6.9) x10^3/uL Basophils # 0.06 (0-0.4) x10^3/uL Puncture Site pCO2 (35-45) mmHg pO2 (75-100) mmHg Base Excess (-2.0-2.0) O2 Saturation (94-100) g/dF ABG pH (7.35-7.45) ABG HCO3 (22-28) ABG O2 Sat (Measured) (95-100) % [facility]am Test A-a Gradient a/A Ratio Hemoglobin Carboxyhemoglobin (0.0-6.9) % THgb Methemoglobin (1.4-1.5) % Temperature C POC O2 Flow Rate % Sodium 136 (135-145) mmol/L Potassium 4.4 (3.5-5.1) mmol/L Chloride 99 (98-107) mmol/L Carbon Dioxide 31 H (22-30) mmol/L Anion Gap 11.1 (5-15) MEQ/L BUN 28 H (9-20) mg/dL Creatinine 1.47 H (0.66-1.25) mg/dL Estimated GFR 55.6 ML/MIN Glucose 123 H (74-106) mg/dL Lactic Acid (0.4-2.0) Calcium 8.6 (8.4-10.2) mg/dL Total Bilirubin 3.00 H (0.2-1.3) mg/dL AST 43 (17-59) U/L ALT 33 (0-50) U/L Alkaline Phosphatase 160 H (38-126) U/L Troponin I (0.000-0.033) ng/mL NT-Pro-B Natriuret Pep (<300) pg/mL Serum Total Protein 6.6 (6.3-8.2) g/dL Albumin 3.3 L (3.5-5.0) g/dL Lipase 24 (23-300) U/L - Progress Progress: improved, re-examined Progress Note: 02/06/24 01:43 58 years old is evaluated for abdominal pain with nausea vomiting and some diarrhea. Patient has COPD with chronic respiratory failure on 3 L. No chest pain but does have shortness of breath at his baseline. Patient was hypoxic on presentation with not being on oxygen at and improved quickly and mid to upper 90s on 3 L. EKG showed sinus tach with no acute ST elevation but depressions and T wave inversion in lateral leads. Workup showed white count of 11, lactate of 2.2, CKD with a creatinine of 1.4 and total bili of 3.0. Patient chest x-ray showed cardiomegaly/congestion. He is given symptomatic treatment and gentle h ydration, feeling better on reevaluation. Initial troponin of 0.15. Obtain CT chest without contrast which did not show any acute infiltrative process in the CT abdomen pelvis consistent with gallbladder sludge, parenchymal changes in the liver/edema, abdominal pelvic ascites. He is given a dose of Levaquin and Flagyl. I believe patient needs multi speciality services. Called [facility] and [facility], no ERCP services are available. I have called [facility], discussed with Dr. Johnson at [facility], reviewed history, workup and agreed with transfer. I have shared the results of workup with patient and caregiver, plan of transfer which they understand and agree. Patient history, workup, review of results, management is 1 of high-level complexity. 02/06/24 01:50 Is complaining of some chest discomfort on reevaluation and with elevated troponin I would put some Nitropaste. I would not anticoagulate him/heparinize him as patient possibly needs surgical intervention soon. Counseled pt/family regarding: lab results, diagnosis, need for follow-up, rad results, smoking cessation Medical Desision Making - Independent Historian Additional History obtained from: Relative/friend - Discussion of managment Care discussed with:: hospitalist (Dr. Johnson) Reviewed:: Test results Agreed on:: Treatment plan, decision to admit Will see patient: in hospital - Diagnostic Testing Diagnostic test were ordered, analyzed, and reviewed by me: Yes Radiological Interpretation: Interpreted by me, Reviewed by me, Teleradiologist Report - Risk of complications The pt has a high risk of morbidity or mortality based on: Decision regarding hospitilization or escalation of hosp level of care - Departure Departure Disposition: Transfer Clinical Impression: Elevated troponin, Cholecystitis, acute, COPD exacerbation, Ascites Condition: Stable Critical Care Time: Yes Critical Care Time(excluding separately billable procedures): Critical 30-74 mins Referrals: JOSE ALEJO, [employer] [Primary Care Provider] - Follow up/PCP as directed Instructions: Chronic Obstructive Pulmonary Disease
[2024-02-05] MEDS ORDERED: SUBLIMAZE 100 MCG/2 ML ONE (22:24)
[2024-02-05] MEDS ORDERED: Sodium Chloride 0.9% 1000 ML 1,000 ML ONE (22:24)
[2024-02-05] MEDS ORDERED: DUONEB 0.5-3 MG/3 ml Neb IH ONE (22:26)
[2024-02-05] MEDS: Sodium Chloride 0.9% 1000 ML 1,000 ML IV SCH (22:34)
[2024-02-05] MEDS: Zofran 4 MG/2 ML VIAL IV ONE (22:35)
[2024-02-05] MEDS: SUBLIMAZE 100 MCG/2 ML IV ONE (22:36)
[2024-02-05 22:37] LABS: Absolute Neutrophil Ct (ANC) 8.79 x10^3/uL (1.4-6.9); BASOPHIL % 0.5 % (0.0-0.4); Basophil (Absolute #) 0.06 x10^3/uL (0-0.4); Eosinophil % 0.3 % (0.00-5.0); Eosinophil (Absolute #) 0.03 x10^3/uL (0-0.5); Hemoglobin 13.5 g/dL (12.5-18.0); IMMATURE GRAN # 0.06 x10^3u/L (0.00-0.03); IMMATURE GRAN % 0.5 % (0.00-0.4); Lymphocyte (Absolute #) 1.56 x10^3/uL (1.0-4.6); Lymphocytes % 13.8 % (24.0-44.0); Mean Corpuscular Hemoglobin 28.2 pg (26-32); Mean Corpuscular Hgb Concent. 31.4 g/dL (32-36); Mean Platelet Volume 9.8 fL (7.5-11.0); Monocyte (Absolute #) 0.77 x10^3/uL (0.0-1.3); Monocytes % 6.8 % (0.0-12.0); NUCLEATED RBC # 0.03 x10^3u/L (0.00-0.01); NUCLEATED RBC % 0.3 % (0.00-0.1); Neutrophil % 78.1 % (36.0-66.0); Platelet Count 277 x10^3/uL (150-450); Red Blood Count 4.78 x10^6/uL (4.1-5.6); Red Cell Distribution Width 20.2 % (11.5-14.0); White Blood Count 11.3 x10^3/uL (4.0-10.5)
[2024-02-05] MEDS: DUONEB 0.5-3 MG/3 ml Neb IH ONE (22:42)
[2024-02-05 22:45] LABS: A-aADO2 46; ABG HEMOGLOBIN 14.2; ABG POTASSIUM 3.9 (3.5-5.1); ABG SITE LEFT BRACHIAL; ARTERIAL BLD GAS O2 SATURATION 99.3 % (95-100); ARTERIAL BLOOD GAS BASE EXCESS 2.4 (-2.0-2.0); ARTERIAL BLOOD GAS FIO2 32 %; ARTERIAL BLOOD GAS PCO2 31 mmHg (35-45); ARTERIAL BLOOD GAS PO2 143 mmHg (75-100); ARTERIAL BLOOD GAS pH 7.51 (7.35-7.45); CARBOXYHEMOGLOBIN 1.3 % THgb (0.0-6.9); HCO3- 24.7 (22-28); HGB O2 SAT 97.2 g/dF (94-100); Methhemoglobin 0.8 % (1.4-1.5); paO2 pAO1 0.76
[2024-02-05 23:13] LABS: ALBUMIN 3.3 g/dL (3.5-5.0); ANION GAP 11.1 MEQ/L (5-15); Calcium 8.6 mg/dL (8.4-10.2); Creatinine 1 1.47 mg/dL (0.66-1.25); EST GLOMERULAR FILTRATION RATE 55.6 ML/MIN; Potassium 4.4 mmol/L (3.5-5.1); Total Protein 6.6 g/dL (6.3-8.2)
[2024-02-05 23:53] LABS: TROPONIN 0.151 ng/mL (0.000-0.033)
--- NOTE | 2024-02-06 00:33 | XRAY ---
CLINICAL HISTORY: cough COMPARISON: 11/19/2020 TECHNIQUE: Contiguous axial CT images of the chest were acquired without administration of intravenous contrast. Coronal and sagittal reconstructions were obtained. One of the following dose reduction techniques were utilized for this exam: Automated exposure control, adjustment of the mA and/or kV according to patient size, use of iterative reconstruction? FINDINGS: Bilateral upper lobes predominantly apical segments and to less extnet rigth lower lobe apical segmnet subpleural reticulations intermingled with related atelectatic plates, fibrotic scarring and irregular shape nodular densities with surrounding parenchymal distortion and apical pleural thickening. Multiple small calcified nodules are seen scattered within both lungs. Calcified mediastinal and bilateral hilar lymph nodes are noted, Left lower lobe basal segment irregular shape nodule 7 mm in diameter merging with related fibrotic bands. Bilateral pulmonary predominantly upper zonal paraseptal and centrilobular emphysematous changes with patchy areas of air trapping. No obvious pulmonary masses or consolidations. No free or encysted pleural effusions. Cardiomegaly of left atrioventricular preponderance. No pericardial effusion. Focal cortical buckling of the superior aspect of the body of the sternum. Intact bony thoracic cage with no fractures or osseous destruction. The examined vertebrae shows mild spondylosis. No definite mass lesion in the chest wall. The abdominal findings are detailed on the CT abdomen report. IMPRESSION: 1. Bilateral upper lobes reticulations with bilateral pulmonary calcified nodules, calcified mediastinal and bilateral hilar lymph nodes, likely post granulomatous infection sequel (stable). 2. Left lower lobe basal segment irregular shape nodule 7 mm, not adequately covered on the prior CT study. Advise follow up by CT/PET CT. 3. Bilateral pulmonary emphysematous changes (stable). 4. Cardiomegaly (stable). 5. Focal cortical buckling of the superior aspect of the body of the sternum (stable). Electronically Signed by: Carol Ann Arora MD. (02/06/2024 00:29:27 EDT)
--- NOTE | 2024-02-06 00:53 | XRAY ---
CLINICAL HISTORY: gen abd pain/vomiting COMPARISON: None TECHNIQUE: CT scan of the abdomen and pelvis was performed without IV contrast administration. Coronal and sagittal reconstructive images were also obtained. One of the following dose reduction techniques were utilized for this exam: Automated exposure control, adjustment of the mA and/or kV according to patient size, use of iterative reconstruction?. FINDINGS: Average-sized liver changes showing undulant hepatic outline and prominent interlobar. It shows homogenous parenchymal attenuation. No dilated intra-hepatic biliary tracts. Distended gall bladder showing fluid/fluid level with no obvious radiodense calculi. No pericholecystic collections. Atrophic changes of the pancreas. Thickened adrenal glands. The spleen and IVC are unremarkable. Both kidneys are of average size and shape with preserved parenchymal thickness. Left renal lower calyceal 3 mm non-obstructing calculus. No right calculi. No hydronephrosis. The urinary bladder show no masses or diverticular outpouchings. Average-sized prostate showing fine calcifications. Aortoiliac atheromatous calcifications. Colonic fecal loading. Otherwise, the ascending colon, the transverse colon, the descending colon are unremarkable. The stomach and small bowel loops show no obvious abnormality. The appendix is not clearly identified. No right iliac inflammatory changes. Mild to moderate abdominopelvic ascites with smudged peritoneal and retroperitoneal fat planes. Mild subcutaneous soft tissue edema of the pelviabdominal quintanilla. No free air. No obvious pathologically enlarged abdominal or pelvic lymph nodes. Scanned osseous structures show spondylosis. No destruction. IMPRESSION: 1. Parenchymatous liver changes. Advise LFT correlation. 2. Gall bladder sludge. 3. Left renal lower calyceal non-obstructing calculus. 4. Mild to moderate abdominopelvic ascites with smudged peritoneal and retroperitoneal fat planes. 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 Electronically Signed by: Carol Ann Arora MD. (02/06/2024 00:48:52 EDT)
[2024-02-06] MEDS ORDERED: NITRO-BID 2% UD PACKETS ONE (01:55)
[2024-02-06] MEDS ORDERED: FLAGYL 500 MG IVPB 500 MG/100 ML BAG IV ONE (01:56)
[2024-02-06] MEDS ORDERED: Levofloxacin 500MG/100ML D5W 500 MG/100 ML BAG IV ONE (01:56)
[2024-02-06] MEDS: NITRO-BID 2% UD PACKETS TOP ONE (02:16)
[2024-02-06] MEDS: FLAGYL 500 MG IVPB 500 MG/100 ML BAG IV STA (02:17)
[2024-02-06] MEDS: Levofloxacin 500MG/100ML D5W 500 MG/100 ML BAG IV STA (02:17)
[2024-02-06 03:03] VITALS: BP 141/108; PULSE 88; RESP 29; O2SAT 94
== END 2024-02-06 03:24 | disposition short-term general hospital (02) ==
LOC: ED 21:51
DX: K81.0 Acute cholecystitis (principal); R77.8 Other specified abnormalities of plasma proteins; J44.1 Chronic obstructive pulmonary disease with (acute) exacerbation; R18.8 Other ascites; R11.2 Nausea with vomiting, unspecified; R19.7 Diarrhea, unspecified; R10.84 Generalized abdominal pain; R53.1 Weakness; R53.83 Other fatigue; I11.0 Hypertensive heart disease with heart failure; I50.9 Heart failure, unspecified; E11.9 Type 2 diabetes mellitus without complications; Z79.84 Long term (current) use of oral hypoglycemic drugs; Z79.899 Other long term (current) drug therapy; Z99.81 Dependence on supplemental oxygen; Z72.0 Tobacco use
CPT/HCPCS: 36000; 36415; 36600; 71250; 74176; 80053; 82375; 82803; 83605; 83690; 83880; 84484; 85025; 87040; 93005; 94640; 96367; 96374; 96375; 99285; 99291; J1956; J2405; J3010; A9270-GY

== ENCOUNTER 2024-03-11 19:36 | Observation (INO) | payer OTHER ==
--- NOTE | 2024-03-11 20:04 | ERPHSYRPT ---
- History of Present Illness Time Seen by Provider: 03/11/24 19:37 Historian: patient Exam Limitations: no limitations Patient Subjective Stated Complaint: chest pain that started around 1500 when patient was walking to his car, sudden chest pain and pt states he vomited x1 Triage Nursing Assessment: pt ambulatory from wheelchair to cot by stand by assist, pt alert and oriented x3, skin slightly jaundiced, hands cool to touch, pt c/o chest pain that started around 1500, pt describes pain as constant pressure. Physician History: 58 years old male with history of hypertension, hyperlipidemia, COPD, tobacco abuse, congestive heart failure presented to the ER with sudden onset chest pain around 3 PM when he was walking to his car. Patient reported he felt sick at his stomach with nonprojectile, nonbilious vomiting x 1. No abdominal pain. Reports pressure in the center of the chest as if something sitting on his chest. Denies any palpitations or skipping of heartbeat. Patient has some shortness of breath at his baseline which is not any worse than usual. Denies any history of coronary artery disease. No fever chills or cough reported. Patient is in atrial flutter RVR on presentation with no ST elevation. Denies any history of atrial fibrillation/flutter and not taking any blood thinners. Aspirin Treatment Today: no aspirin today Allergies/Adverse Reactions: varenicline tartrate [From Chantix] Allergy (Severe, Verified 02/05/24 22:18) Swelling codeine Adverse Reaction (Severe, Verified 02/05/24 22:18) black out Penicillins Adverse Reaction (Verified 02/05/24 22:18) unsure but thinks is allergic Home Medications: Carvedilol [Coreg 6.25 MG] 3.125 mg PO BID 12/26/21 [History] Sertraline HCl 50 mg [Zoloft 50 mg Tablet] 1 tab PO DAILY 02/05/24 [History] Aspirin EC 81 mg [Ecotrin 81 mg] 81 mg PO DAILY 03/11/24 [History] PANTOPRAZOLE 40 mg Tablet [Protonix 40MG Tablet] 40 mg PO DAILY 03/11/24 [History] Spironolactone 25 mg [Aldactone 25 MG] 0.5 tab PO DAILY 03/11/24 [History] Tamsulosin HCl 0.4 mg [Flomax 0.4 MG] 0.4 mg PO DAILY 03/11/24 [History] Torsemide 20 mg [Demadex 20 mg] 20 mg PO DAILY 03/11/24 [History] Hx Tetanus, Diphtheria Vaccination/Date Given: Yes Hx Influenza Vaccination/Date Given: No Hx Pneumococcal Vaccination/Date Given: No Immunizations Up to Date: No Travel Risk - International Travel Have you traveled outside of the country in past 3 weeks: No - Emerging Infectious Disease Are you exhibiting symptoms associated with any current EIDs: Yes Symptoms: Vomitting - Review of Systems Constitutional: No Symptoms Eyes: No Symptoms Ears, Nose, & Throat: No Symptoms Respiratory: Dyspnea Cardiac: Chest Pain Abdominal/Gastrointestinal: Nausea, Vomiting Genitourinary Symptoms: No Symptoms Musculoskeletal: No Symptoms Skin: No Symptoms Neurological: No Symptoms Endocrine: No Symptoms Hematologic/Lymphatic: No Symptoms - Past Medical History Pertinent Past Medical History: Yes Neurological History: No Pertinent History Cardiac History: Congestive Heart Failure, Hypertension, Other Respiratory History: COPD Endocrine Medical History: Diabetes Type II, Liver Disease Musculoskeletal History: Other History: Other Psycho-Social History: Anxiety, Depression Male Reproductive Disorders: Prostate Problems Other Medical History: states leaky heart valves x2, chronic back pain, kidney disease, liver disease, wears home O2 3 L NC @ night - Past Surgical History Past Surgical History: Yes Neuro Surgical History: No Pertinent History Cardiac: Cardiac Catheterization Respiratory: No Pertinent History Gastrointestinal: Hernia Repair Genitourinary: No Pertinent History Musculoskeletal: Orthopedic Surgery Male Surgical History: No Pertinent History Other Surgical History: bilat knee surgery ,hernia, left wrist Significant Family History: no pertinent family hx - Social History Smoking Status: Former smoker How long have you smoked: years Exposure to second hand smoke: Yes Drug Use: none Patient Lives Alone: Yes - Nursing Vital Signs Nursing Vital Signs: Initial Vital Signs Temperature 98.2 F 03/11/24 19:39 Pulse Rate 132 H 03/11/24 19:39 Respiratory Rate 24 03/11/24 19:39 Blood Pressure 120/86 03/11/24 19:39 O2 Sat by Pulse Oximetry 94 L 03/11/24 19:39 Pain Scale Pain Intensity 0 - Physical Exam General Appearance: no apparent distress, alert Eye Exam: PERRL/EOMI Ears, Nose, Throat Exam: normal ENT inspection Neck Exam: normal inspection, supple, full range of motion Respiratory Exam: diminished breath sounds, wheezing Cardiovascular Exam: normal heart sounds, tachycardia, irregular Gastrointestinal/Abdomen Exam: soft, normal bowel sounds, No tenderness Back Exam: normal inspection, normal range of motion Extremity Exam: normal inspection, normal range of motion, pelvis stable Neurologic Exam: alert, oriented x 3, cooperative, operator weapon locating radar II-XII nml as tested Skin Exam: normal color SpO2 Interpretation: normal SpO2: 94 O2 Delivery: Room Air - Course EKG Interpreted by Me: RATE (136), A-fib (Her), NORMAL AXIS, prolonged QT interval, Non-specific ST Changes Ordered Tests: Active Orders 24 hr Category Date Time Status Photovoltaic Testing Technician STAT Care 03/11/24 19:54 Active EKG-ER Only STAT Care 03/11/24 19:54 Active IV Insertion STAT Care 03/11/24 19:54 Active Oxygen-ED Only Nasal Cannula 2 lpm Care 03/11/24 19:54 Active CHEST 1 VIEW (PORTABLE) Stat Exams 03/11/24 21:17 Taken BLOOD CULTURE Stat Lab 03/11/24 21:24 Received CBC W DIFF Stat Lab 03/11/24 20:00 Completed CK-Creatinine Phosphokinase Stat Lab 03/11/24 20:00 Completed CMP Stat Lab 03/11/24 20:00 Completed CMP Stat Lab 03/12/24 04:00 Ordered LIPASE Stat Lab 03/11/24 20:00 Completed Lactic Acid Stat Lab 03/11/24 20:09 Completed MAG [MAGNESIUM] Stat Lab 03/11/24 20:00 Completed NT PRO BNPII Stat Lab 03/11/24 20:00 Completed TROPONIN Q4H Lab 03/11/24 20:00 Completed TROPONIN Q4H Lab 03/12/24 00:00 Ordered TROPONIN Q4H Lab 03/12/24 04:00 Ordered Medication Summary Generic Name Dose Route Start Last Admin Trade Name Freq PRN Reason Stop Dose Admin Aspirin 81 mg 03/12/24 10:00 Aspirin 81 Mg Tablet.Ec PO 04/11/24 09:59 DAILY COLBY Sodium Chloride 1,000 mls @ 999 mls/hr 03/11/24 21:30 03/11/24 21:39 Sodium Chloride 0.9% 1000 Ml IV 03/11/24 22:30 999 mls/hr .Q1H1M STA Administration Diltiazem HCl 100 mls @ 5 mls/hr 03/11/24 21:31 03/11/24 21:40 Cardizem Drip 100 Mg/100 Ml D5w IV 04/10/24 21:30 5 mg/hr .Q20H PRN 5 mls/hr HEART RATE/ A-FIB Administration Protocol 5 MG/HR Pantoprazole Sodium 40 mg 03/12/24 10:00 Protonix (Pantoprazole) 40 Mg Tablet PO 04/11/24 09:59 DAILY COLBY Sertraline HCl mg 03/12/24 10:00 Sertraline Hcl 50 Mg Tab PO 04/11/24 09:59 DAILY COLBY Discontinued Medications Generic Name Dose Route Start Last Admin Trade Name Freq PRN Reason Stop Dose Admin Aspirin 324 mg 03/11/24 19:54 03/11/24 20:06 Aspirin 81 Mg Tab.Chew PO 03/11/24 19:55 Not Given STAT ONE Aspirin 243 mg 03/11/24 20:05 03/11/24 20:10 Aspirin 81 Mg Tab.Chew PO 03/11/24 20:06 243 mg STAT ONE Administration Aspirin Confirm 03/11/24 20:08 Aspirin 81 Mg Tab.Chew Administered 03/11/24 20:09 Dose 243 mg .ROUTE .STK-MED ONE Sodium Chloride 1,000 mls @ 999 mls/hr 03/11/24 19:54 03/11/24 21:11 Sodium Chloride 0.9% 1000 Ml IV 03/11/24 20:54 Infused .Q1H1M STA Infusion Sodium Chloride Confirm 03/11/24 20:08 Sodium Chloride 0.9% 1000 Ml Administered 03/11/24 20:09 Dose 1,000 mls @ ud .ROUTE .STK-MED ONE Sodium Chloride Confirm 03/11/24 21:34 Sodium Chloride 0.9% 1000 Ml Administered 03/11/24 21:35 Dose 1,000 mls @ ud .ROUTE .STK-MED ONE Morphine Sulfate 4 mg 03/11/24 19:54 03/11/24 20:10 Morphine Sulfate 4 Mg/Ml Injection IV 03/11/24 19:55 4 mg STAT ONE Administration Morphine Sulfate Confirm 03/11/24 20:08 Morphine Sulfate 4 Mg/Ml Injection Administered 03/11/24 20:09 Dose 4 mg .ROUTE .STK-MED ONE Ondansetron HCl 4 mg 03/11/24 19:54 03/11/24 20:10 Ondansetron Hcl 4 Mg/2 Ml Vial IV 03/11/24 19:55 4 mg STAT ONE Administration Ondansetron HCl Confirm 03/11/24 20:07 Ondansetron Hcl 4 Mg/2 Ml Vial Administered 03/11/24 20:08 Dose 4 mg .ROUTE .K-MED ONE Lab/Rad Data: Laboratory Result Diagrams 03/11/24 20:00 03/11/24 20:00 Laboratory Results 03/11/24 03/11/24 03/11/24 Range/Units 20:09 20:00 20:00 WBC (4.0-10.5) x10^3/uL RBC (4.1-5.6) x10^6/uL Hgb (12.5-18.0) g/dL Hct (42-50) % MCV (78-100) fL MCH (26-32) pg MCHC (32-36) g/dL RDW (11.5-14.0) % Plt Count (150-450) x10^3/uL MPV (7.5-11.0) fL Gran % (36.0-66.0) % Immature Gran % (Auto) (0.00-0.4) % Nucleat RBC Rel Count (0.00-0.1) % Eos # (Auto) (0-0.5) x10^3/uL Immature Gran # (Auto) (0.00-0.03) x10^3u/L Absolute Lymphs (auto) (1.0-4.6) x10^3/uL Absolute Monos (auto) (0.0-1.3) x10^3/uL Absolute Nucleated RBC (0.00-0.01) x10^3u/L Lymphocytes % (24.0-44.0) % Monocytes % (0.0-12.0) % Eosinophils % (0.00-5.0) % Basophils % (0.0-0.4) % Absolute Granulocytes (1.4-6.9) x10^3/uL Basophils # (0-0.4) x10^3/uL Sodium 131 L (135-145) mmol/L Potassium 5.1 (3.5-5.1) mmol/L Chloride 97 L (98-107) mmol/L Carbon Dioxide 18 L (22-30) mmol/L Anion Gap 20.7 H (5-15) MEQ/L BUN 35 H (9-20) mg/dL Creatinine 2.07 H (0.66-1.25) mg/dL Estimated GFR 36.9 ML/MIN Glucose 107 H (74-106) mg/dL Lactic Acid 4.6 H (0.4-2.0) Calcium 9.7 (8.4-10.2) mg/dL Magnesium 1.7 (1.6-2.3) mg/dL Total Bilirubin 5.40 H (0.2-1.3) mg/dL AST 45 (17-59) U/L ALT 30 (0-50) U/L Alkaline Phosphatase 180 H (38-126) U/L Creatine Kinase 66 (55-170) U/L Troponin I 0.075 H* (0.000-0.033) ng/mL NT-Pro-B Natriuret Pep 4170 (<300) pg/mL Serum Total Protein 8.1 (6.3-8.2) g/dL Albumin 4.5 (3.5-5.0) g/dL Lipase 32 (23-300) U/L 03/11/24 Range/Units 20:00 WBC 7.0 (4.0-10.5) x10^3/uL RBC 5.06 (4.1-5.6) x10^6/uL Hgb 13.6 (12.5-18.0) g/dL Hct 42.9 (42-50) % MCV 84.8 (78-100) fL MCH 26.9 (26-32) pg MCHC 31.7 L (32-36) g/dL RDW 20.6 H (11.5-14.0) % Plt Count 253 (150-450) x10^3/uL MPV 9.4 (7.5-11.0) fL Gran % 69.6 H (36.0-66.0) % Immature Gran % (Auto) 0.4 (0.00-0.4) % Nucleat RBC Rel Count 0.0 (0.00-0.1) % Eos # (Auto) 0.06 (0-0.5) x10^3/uL Immature Gran # (Auto) 0.03 (0.00-0.03) x10^3u/L Absolute Lymphs (auto) 1.41 (1.0-4.6) x10^3/uL Absolute Monos (auto) 0.55 (0.0-1.3) x10^3/uL Absolute Nucleated RBC 0.00 (0.00-0.01) x10^3u/L Lymphocytes % 20.3 L (24.0-44.0) % Monocytes % 7.9 (0.0-12.0) % Eosinophils % 0.9 (0.00-5.0) % Basophils % 0.9 (0.0-0.4) % Absolute Granulocytes 4.85 (1.4-6.9) x10^3/uL Basophils # 0.06 (0-0.4) x10^3/uL Sodium (135-145) mmol/L Potassium (3.5-5.1) mmol/L Chloride (98-107) mmol/L Carbon Dioxide (22-30) mmol/L Anion Gap (5-15) MEQ/L BUN (9-20) mg/dL Creatinine (0.66-1.25) mg/dL Estimated GFR ML/MIN Glucose (74-106) mg/dL Lactic Acid (0.4-2.0) Calcium (8.4-10.2) mg/dL Magnesium (1.6-2.3) mg/dL Total Bilirubin (0.2-1.3) mg/dL AST (17-59) U/L ALT (0-50) U/L Alkaline Phosphatase (38-126) U/L Creatine Kinase (55-170) U/L Troponin I (0.000-0.033) ng/mL NT-Pro-B Natriuret Pep (<300) pg/mL Serum Total Protein (6.3-8.2) g/dL Albumin (3.5-5.0) g/dL Lipase (23-300) U/L - Progress Progress: re-examined Air Movement: good Progress Note: 03/11/24 22:11 58-year-old is evaluated in the ER for sudden onset of chest pain with palpitations. Patient was in atrial flutter RVR on presentation in the ER. Is given fluid bolus along with symptomatic treatment, on reevaluation feeling better but still persistent a flutter. Started on Cardizem. Patient workup showed normal white count, chemistries showing acute renal failure with a baseline creatinine of 1.4 almost a month ago and today is 2.0 and a gap of 20 and a lactate of 4.6. Chest x-ray negative for any acute cardiopulmonary findings reviewed by me, official report is pending. Initial troponins are negative. Patient has no history of atrial fibrillation/flutter. I have shared the results of workup with patient and recommended admission which she understand and agrees. I have discussed with Dr. Atkinson, reviewed history, workup and current management, agreed with keeping patient here. 03/11/24 22:11 Blood Culture(s) Obtained: Yes Antibiotics given: No Discussed with Dr.: Kiara Counseled pt/family regarding: lab results, diagnosis, need for follow-up, rad results, smoking cessation Medical Desision Making - Discussion of managment Care discussed with:: hospitalist (Dr. Farhad Atkinson) Reviewed:: Test results Agreed on:: Treatment plan Will see patient: in hospital - Diagnostic Testing Diagnostic test were ordered, analyzed, and reviewed by me: Yes Radiological Interpretation: Interpreted by me, Reviewed by me - Risk of complications The pt has a mod risk of morbidity or mortality based on: Need for prescription drug management The pt has a high risk of morbidity or mortality based on: Drug therapy requiring intensive monitoring for toxicity, Decision regarding hospitilization or escalation of hosp level of care - Departure Departure Disposition: Observation Clinical Impression: Atrial flutter with rapid ventricular response, Acute renal failure, Lactic acidosis Condition: Stable Critical Care Time: No Referrals: JOSE ALEJO, [employer] ENGINEER [Primary Care Provider] - Follow up/PCP as directed
[2024-03-11] MEDS: BABY ASPIRIN 81 MG CHEW PO ONE ×2 (20:06→20:10)
[2024-03-11] MEDS ORDERED: Zofran 4 MG/2 ML VIAL ONE (20:07)
[2024-03-11] MEDS ORDERED: Sodium Chloride 0.9% 1000 ML 1,000 ML ONE ×2 (20:08→21:34)
[2024-03-11] MEDS ORDERED: BABY ASPIRIN 81 MG CHEW ONE (20:08)
[2024-03-11] MEDS ORDERED: MORPHINE SULFATE 4 MG INJ ONE (20:08)
[2024-03-11] MEDS: Zofran 4 MG/2 ML VIAL IV ONE (20:10)
[2024-03-11] MEDS: MORPHINE SULFATE 4 MG INJ IV ONE (20:10)
[2024-03-11] MEDS: Sodium Chloride 0.9% 1000 ML 1,000 ML IV STA ×2 (20:10→21:39)
[2024-03-11 20:11] LABS: Absolute Neutrophil Ct (ANC) 4.85 x10^3/uL (1.4-6.9); BASOPHIL % 0.9 % (0.0-0.4); Basophil (Absolute #) 0.06 x10^3/uL (0-0.4); Eosinophil % 0.9 % (0.00-5.0); Eosinophil (Absolute #) 0.06 x10^3/uL (0-0.5); Hematocrit 42.9 % (42-50); Hemoglobin 13.6 g/dL (12.5-18.0); IMMATURE GRAN # 0.03 x10^3u/L (0.00-0.03); IMMATURE GRAN % 0.4 % (0.00-0.4); Lymphocyte (Absolute #) 1.41 x10^3/uL (1.0-4.6); Lymphocytes % 20.3 % (24.0-44.0); Mean Cell Volume 84.8 fL (78-100); Mean Corpuscular Hemoglobin 26.9 pg (26-32); Mean Corpuscular Hgb Concent. 31.7 g/dL (32-36); Mean Platelet Volume 9.4 fL (7.5-11.0); Monocyte (Absolute #) 0.55 x10^3/uL (0.0-1.3); Monocytes % 7.9 % (0.0-12.0); Neutrophil % 69.6 % (36.0-66.0); Platelet Count 253 x10^3/uL (150-450); Red Blood Count 5.06 x10^6/uL (4.1-5.6); Red Cell Distribution Width 20.6 % (11.5-14.0)
[2024-03-11 20:26] LABS: ALBUMIN 4.5 g/dL (3.5-5.0); ANION GAP 20.7 MEQ/L (5-15); BILIRUBIN,TOTAL 5.4 mg/dL (0.2-1.3); Calcium 9.7 mg/dL (8.4-10.2); Creatinine 1 2.07 mg/dL (0.66-1.25); EST GLOMERULAR FILTRATION RATE 36.9 ML/MIN; MAGNESIUM 1.7 mg/dL (1.6-2.3); Potassium 5.1 mmol/L (3.5-5.1); Total Protein 8.1 g/dL (6.3-8.2)
[2024-03-11 20:58] LABS: TROPONIN 0.075 ng/mL (0.000-0.033)
[2024-03-11] MEDS: CARDIZEM DRIP 100 MG/100 ML D5W 100 ML IV PRN (21:40)
--- NOTE | 2024-03-11 22:05 | PCM.HP ---
History of Present Illness - Chief Complaint Chief Complaint: Atrial fib/flutter History of Present Illness: is a 58 year old male with CHF, COPD, HLD, HTN who presented with chest pain and shortness of breath who was found to be in atrial flutter/RVR on presentation with no ST evelation. Patient is not on any anticoag. Started on cardizem gtt in the ED and on Lovenox for AC with good response. Chest pain free now, no fevers or recent illness. - Review of Systems Constitutional: No Fever, No Chills Eyes: No Symptoms Ears, Nose, & Throat: No Symptoms Respiratory: No Cough, No Short Of Breath Cardiac: No Chest Pain, No Edema, No Syncope Abdominal/Gastrointestinal: No Abdominal Pain, No Nausea, No Vomiting, No Diarrhea Genitourinary Symptoms: No Dysuria Musculoskeletal: No Back Pain, No Neck Pain Skin: No Rash Neurological: No Dizziness, No Focal Weakness, No Sensory Changes Psychological: No Symptoms Endocrine: No Symptoms Hematologic/Lymphatic: No Symptoms Immunological/Allergic: No Symptoms Medications & Allergies Home Medications: Home Medication List Carvedilol [Coreg 6.25 MG] 3.125 mg PO BID 12/26/21 [History Confirmed 03/11/24] Sertraline HCl 50 mg [Zoloft 50 mg Tablet] 1 tab PO DAILY 02/05/24 [History Confirmed 03/11/24] Aspirin EC 81 mg [Ecotrin 81 mg] 81 mg PO DAILY 03/11/24 [History Confirmed 03/11/24] PANTOPRAZOLE 40 mg Tablet [Protonix 40MG Tablet] 40 mg PO DAILY 03/11/24 [History Confirmed 03/11/24] Spironolactone 25 mg [Aldactone 25 MG] 0.5 tab PO DAILY 03/11/24 [History Confirmed 03/11/24] Tamsulosin HCl 0.4 mg [Flomax 0.4 MG] 0.4 mg PO DAILY 03/11/24 [History Confirmed 03/11/24] Torsemide 20 mg [Demadex 20 mg] 20 mg PO DAILY 03/11/24 [History Confirmed 03/11/24] Allergies/Adverse Reactions: Allergies Allergy/AdvReac Type Severity Reaction Status Date / Time varenicline tartrate Allergy Severe Swelling Verified 02/05/24 22:18 [From Chantix] codeine AdvReac Severe Verified 02/05/24 22:18 Penicillins AdvReac Verified 02/05/24 22:18 - Past Medical History Past Medical History: Yes Neurological History: No Pertinent History Cardiac History: Congestive Heart Failure, Hypertension, Other Respiratory History: COPD Endocrine Medical History: Diabetes Type II, Liver Disease Musculoskelatal History: Other History: Other Pyscho-Social History: Anxiety, Depression Male Reproductive Disorders: Prostate Problems Comment: states leaky heart valves x2, chronic back pain, kidney disease, liver disease, wears home O2 3 L NC @ night - Past Surgical History Past Surgical History: Yes Neuro Surgical History: No Pertinent History Cardiac History: Cardiac Catheterization Respiratory Surgery: No Pertinent History GI Surgical History: Hernia Repair Genitourinary Surgical Hx: No Pertinent History Musculskeletal Surgical Hx: Orthopedic Surgery Male Surgical History: No Pertinent History Other Surgical History: bilat knee surgery ,hernia, left wrist Significant Family History: no pertinent family hx - Social History Smoking Status: Former smoker How long have you smoked: years Exposure to second hand smoke: Yes Alcohol: None Drug Use: none - Social Determinants of Health Will the patient participate in the screening: Yes Do you worry about a steady place to live?: No Do you have any problems with any of the following?: No known problems In the past 12 months,have you had to go without utilities?: No Have you or anyone in your house had to go without enough: No Transportation Issues: No Has anyone in your support network made you feel unsafe?: No - Physical Exam Vital Signs: Vital Signs - 24 hr Temp Pulse Pulse Resp BP BP Pulse Ox 03/11/24 21:40 133 H 24 118/96 03/11/24 21:03 141 H 26 H 109/91 100 03/11/24 20:30 128 H 19 124/100 100 03/11/24 20:04 94 L 03/11/24 20:00 137 H 34 H 115/97 99 03/11/24 19:39 98.2 F 132 H 140 H 24 120/86 94 L General Appearance: no apparent distress, alert Neurologic Exam: alert, oriented x 3, cooperative, normal mood/affect, nml cerebellar function, nml station & gait, sensation nml, No motor deficits Eye Exam: PERRL/EOMI, eyes nml inspection Ears, Nose, Throat Exam: normal ENT inspection, TMs normal, pharynx normal, moist mucous membranes Neck Exam: normal inspection, non-tender, supple, full range of motion Respiratory Exam: normal breath sounds, lungs clear, No respiratory distress Cardiovascular Exam: regular rate/rhythm, normal heart sounds, normal peripheral pulses Gastrointestinal/Abdomen Exam: soft, normal bowel sounds, No tenderness, No mass Back Exam: normal inspection, normal range of motion, No CVA tenderness, No vertebral tenderness Extremity Exam: normal inspection, normal range of motion, pelvis stable Skin Exam: normal color, warm, dry, No rash Lymphatic Exam: No adenopathy Results - Labs Lab/Micro Results: Lab Results-Last 24 Hours 03/11/24 03/11/24 03/11/24 Range/Units 20:00 20:00 20:00 WBC 7.0 (4.0-10.5) x10^3/uL RBC 5.06 (4.1-5.6) x10^6/uL Hgb 13.6 (12.5-18.0) g/dL Hct 42.9 (42-50) % MCV 84.8 (78-100) fL MCH 26.9 (26-32) pg MCHC 31.7 L (32-36) g/dL RDW 20.6 H (11.5-14.0) % Plt Count 253 (150-450) x10^3/uL MPV 9.4 (7.5-11.0) fL Gran % 69.6 H (36.0-66.0) % Immature Gran % (Auto) 0.4 (0.00-0.4) % Nucleat RBC Rel Count 0.0 (0.00-0.1) % Eos # (Auto) 0.06 (0-0.5) x10^3/uL Immature Gran # (Auto) 0.03 (0.00-0.03) x10^3u/L Absolute Lymphs (auto) 1.41 (1.0-4.6) x10^3/uL Absolute Monos (auto) 0.55 (0.0-1.3) x10^3/uL Absolute Nucleated RBC 0.00 (0.00-0.01) x10^3u/L Lymphocytes % 20.3 L (24.0-44.0) % Monocytes % 7.9 (0.0-12.0) % Eosinophils % 0.9 (0.00-5.0) % Basophils % 0.9 (0.0-0.4) % Absolute Granulocytes 4.85 (1.4-6.9) x10^3/uL Basophils # 0.06 (0-0.4) x10^3/uL Sodium 131 L (135-145) mmol/L Potassium 5.1 (3.5-5.1) mmol/L Chloride 97 L (98-107) mmol/L Carbon Dioxide 18 L (22-30) mmol/L Anion Gap 20.7 H (5-15) MEQ/L BUN 35 H (9-20) mg/dL Creatinine 2.07 H (0.66-1.25) mg/dL Estimated GFR 36.9 ML/MIN Glucose 107 H (74-106) mg/dL Lactic Acid (0.4-2.0) Calcium 9.7 (8.4-10.2) mg/dL Magnesium 1.7 (1.6-2.3) mg/dL Total Bilirubin 5.40 H (0.2-1.3) mg/dL AST 45 (17-59) U/L ALT 30 (0-50) U/L Alkaline Phosphatase 180 H (38-126) U/L Creatine Kinase 66 (55-170) U/L Troponin I 0.075 H* (0.000-0.033) ng/mL NT-Pro-B Natriuret Pep 4170 (<300) pg/mL Serum Total Protein 8.1 (6.3-8.2) g/dL Albumin 4.5 (3.5-5.0) g/dL Lipase 32 (23-300) U/L 03/11/ Range/Units 20:09 WBC (4.0-10.5) x10^3/uL RBC (4.1-5.6) x10^6/uL Hgb (12.5-18.0) g/dL Hct (42-50) % MCV (78-100) fL MCH (26-32) pg MCHC (32-36) g/dL RDW (11.5-14.0) % Plt Count (150-450) x10^3/uL MPV (7.5-11.0) fL Gran % (36.0-66.0) % Immature Gran % (Auto) (0.00-0.4) % Nucleat RBC Rel Count (0.00-0.1) % Eos # (Auto) (0-0.5) x10^3/uL Immature Gran # (Auto) (0.00-0.03) x10^3u/L Absolute Lymphs (auto) (1.0-4.6) x10^3/uL Absolute Monos (auto) (0.0-1.3) x10^3/uL Absolute Nucleated RBC (0.00-0.01) x10^3u/L Lymphocytes % (24.0-44.0) % Monocytes % (0.0-12.0) % Eosinophils % (0.00-5.0) % Basophils % (0.0-0.4) % Absolute Granulocytes (1.4-6.9) x10^3/uL Basophils # (0-0.4) x10^3/uL Sodium (135-145) mmol/L Potassium (3.5-5.1) mmol/L Chloride (98-107) mmol/L Carbon Dioxide (22-30) mmol/L Anion Gap (5-15) MEQ/L BUN (9-20) mg/dL Creatinine (0.66-1.25) mg/dL Estimated GFR ML/MIN Glucose (74-106) mg/dL Lactic Acid 4.6 H (0.4-2.0) Calcium (8.4-10.2) mg/dL Magnesium (1.6-2.3) mg/dL Total Bilirubin (0.2-1.3) mg/dL AST (17-59) U/L ALT (0-50) U/L Alkaline Phosphatase (38-126) U/L Creatine Kinase (55-170) U/L Troponin I (0.000-0.033) ng/mL NT-Pro-B Natriuret Pep (<300) pg/mL Serum Total Protein (6.3-8.2) g/dL Albumin (3.5-5.0) g/dL Lipase (23-300) U/L - Radiology Impressions Radiology Exams & Impressions: Radiology Procedures Category Date Time Status CHEST 1 VIEW (PORTABLE) Stat Exams 03/11/24 21:17 Taken Assessment/Plan (1) Atrial flutter Current Visit: Yes Status: Acute Code(s): I48.92 - UNSPECIFIED ATRIAL FLUTTER (2) Atrial flutter Current Visit: Yes Status: Acute Assessment & Plan: 1. Cardizem gtt and Lovenox started in the ED 2. Can resume home meds and adjust Cardizem to an oral agent in the AM Code(s): I48.92 - UNSPECIFIED ATRIAL FLUTTER Telemedicine Encounter - Telemedicine Encounter Telemedicine Encounter: The entirety of this encounter was performed via Telemedicine"
[2024-03-11] MEDS ORDERED: ENOXAPARIN SODIUM SQ ONE (22:29)
[2024-03-11] MEDS: ENOXAPARIN SODIUM SQ ONE (22:33)
[2024-03-12 04:59] LABS: Absolute Neutrophil Ct (ANC) 5.36 x10^3/uL (1.4-6.9); BASOPHIL % 0.5 % (0.0-0.4); Basophil (Absolute #) 0.04 x10^3/uL (0-0.4); Eosinophil % 0.5 % (0.00-5.0); Eosinophil (Absolute #) 0.04 x10^3/uL (0-0.5); Hematocrit 38.8 % (42-50); Hemoglobin 12.3 g/dL (12.5-18.0); IMMATURE GRAN # 0.05 x10^3u/L (0.00-0.03); IMMATURE GRAN % 0.6 % (0.00-0.4); Lymphocyte (Absolute #) 1.52 x10^3/uL (1.0-4.6); Lymphocytes % 19.4 % (24.0-44.0); Mean Cell Volume 84.5 fL (78-100); Mean Corpuscular Hemoglobin 26.8 pg (26-32); Mean Corpuscular Hgb Concent. 31.7 g/dL (32-36); Monocyte (Absolute #) 0.81 x10^3/uL (0.0-1.3); Monocytes % 10.4 % (0.0-12.0); NUCLEATED RBC # 0.02 x10^3u/L (0.00-0.01); NUCLEATED RBC % 0.3 % (0.00-0.1); Neutrophil % 68.6 % (36.0-66.0); Platelet Count 248 x10^3/uL (150-450); Red Blood Count 4.59 x10^6/uL (4.1-5.6); Red Cell Distribution Width 20.4 % (11.5-14.0); White Blood Count 7.8 x10^3/uL (4.0-10.5)
[2024-03-12 05:25] LABS: ALBUMIN 3.9 g/dL (3.5-5.0); ANION GAP 17.7 MEQ/L (5-15); BILIRUBIN,TOTAL 6.6 mg/dL (0.2-1.3); Creatinine 1 2.05 mg/dL (0.66-1.25); EST GLOMERULAR FILTRATION RATE 37.3 ML/MIN; Potassium 4.7 mmol/L (3.5-5.1); Total Protein 7.3 g/dL (6.3-8.2)
[2024-03-12] MEDS: PROVENTIL 2.5 MG/3 ML NEB IH SCH (06:00)
--- NOTE | 2024-03-12 09:12 | XRAY ---
Indication: Chest pain. Comparison: November 19, 2020 Portable chest demonstrates new cardiomegaly. No focal infiltrate, consolidation, or large effusion. Grossly stable multiple bilateral tiny calcified granulomas. Bony thorax intact again with right shoulder degenerative arthropathy. Impression: New cardiomegaly. Negative for acute pneumonic process or CHF. Again incidental old granulomatous disease and right shoulder degenerative arthropathy.
[2024-03-12] MEDS: Protonix 40MG Tablet PO SCH (09:58)
[2024-03-12] MEDS: ZOLOFT 50 MG TABLET PO SCH (09:58)
[2024-03-12] MEDS: ECOTRIN 81 MG PO SCH (09:58)
[2024-03-12] MEDS: Coreg 3.125 MG PO SCH (10:45)
[2024-03-12] MEDS: Sodium Chloride 0.9% 500 ML 500 ML IV ONE (10:45)
--- NOTE | 2024-03-12 13:02 | PCM.NOTE ---
Date and Time: 03/12/24 6265 Subjective Assessment: Mr. Dubon is a 58 year old male with pmhx of CHF, COPD, HLD,and HTN admitted for chest pain, EMILI, Lactic acidosis, and aflutter RVR after experiencing pressure-like chest pain with associated nausea and vomiting while walking to his car. Patient was started on cardizem drip and later converted. Cardiology has been consulted with recommendations to continue current medication regimen/obtain records from [facility] with follow up at [facility] in 2 weeks/consider NOAC. Patient states he is doing much better today. No further chest pain. No other complaints. - Review of Systems Constitutional: No Symptoms Eyes: No Symptoms Ears, Nose, & Throat: No Symptoms Respiratory: No Symptoms Cardiac: No Symptoms Abdominal/Gastrointestinal: No Symptoms Genitourinary Symptoms: No Symptoms Musculoskeletal: No Symptoms Skin: No Symptoms Neurological: No Symptoms Psychological: No Symptoms Endocrine: No Symptoms Hematologic/Lymphatic: No Symptoms Objective Exam General Appearance: no apparent distress Neurologic Exam: alert, oriented x 3, cooperative Skin Exam: normal color Eye Exam: PERRL Ears, Nose, Throat Exam: normal ENT inspection Neck Exam: normal inspection Respiratory Exam: normal breath sounds, lungs clear Cardiovascular Exam: regular rate/rhythm, normal heart sounds Gastrointestinal/Abdomen Exam: soft, normal bowel sounds Extremity Exam: normal inspection Back Exam: normal inspection Objective Data Vital Signs: Vital Signs - 24 hr Temp Pulse Pulse Resp BP BP Pulse Ox 03/12/24 12:10 87 26 H 89 L 03/12/24 12:00 79 18 80 L 03/12/24 11:50 79 15 03/12/24 11:47 87 16 03/12/24 11:33 86 20 129/95 03/12/24 11:32 86 18 03/12/24 11:16 78 18 156/105 03/12/24 11:15 89 17 03/12/24 11:10 89 22 03/12/24 11:00 148 H 03/12/24 10:51 87 03/12/24 10:40 99 H 19 03/12/24 10:32 14 03/12/24 10:24 80 18 95 03/12/24 10:15 29 H 124/94 03/12/24 10:01 77 18 108/83 03/12/24 10:00 76 16 124/94 03/12/24 09:50 86 28 H 03/12/24 09:47 86 20 03/12/24 09:30 77 14 132/107 03/12/24 09:16 80 18 123/93 03/12/24 09:00 84 16 108/83 03/12/24 08:45 83 20 123/83 03/12/24 08:31 100 H 21 132/94 03/12/24 08:28 81 19 123/94 03/12/24 08:20 80 19 03/12/24 08:10 77 24 03/12/24 08:02 81 12 03/12/24 08:00 86 20 109/87 03/12/24 07:46 74 23 118/91 03/12/24 07:30 72 15 126/87 03/12/24 07:16 72 20 130/96 03/12/24 07:15 82 20 03/12/24 07:10 87 24 03/12/24 07:02 73 17 82 L 03/12/24 06:58 63 19 140/84 91 L 03/12/24 06:45 71 14 122/93 93 L 03/12/24 06:31 69 16 123/83 92 L 03/12/24 06:15 74 18 122/91 99 03/12/24 06:00 73 14 122/91 100 03/12/24 05:45 72 16 115/85 93 L 03/12/24 05:31 68 17 03/12/24 05:30 73 19 120/89 84 L 03/12/24 05:16 70 20 109/83 03/12/24 05:15 60 16 109/83 99 03/12/24 05:01 75 21 107/87 100 03/12/24 04:55 73 15 117/84 03/12/24 04:45 73 22 117/84 94 L 03/12/24 04:40 69 15 117/84 03/12/24 04:30 61 16 115/79 97 03/12/24 04:15 63 14 114/87 100 03/12/24 04:00 97.5 F 79 17 120/87 100 03/12/24 03:45 70 16 100/75 100 03/12/24 03:31 78 03/12/24 03:30 92 H 20 117/76 95 03/12/24 03:15 78 19 121/81 98 03/12/24 03:00 85 24 130/90 99 03/12/24 02:46 90 17 114/82 97 03/12/24 02:30 93 H 23 128/92 98 03/12/24 02:16 88 21 119/91 97 03/12/24 02:15 99 H 21 98 03/12/24 02:10 101 H 18 99 03/12/24 02:03 102 H 18 98 03/12/24 01:45 103 H 19 115/86 99 03/12/24 01:30 106 H 23 120/78 99 03/12/24 01:15 117 H 23 115/88 98 03/12/24 01:00 97.9 F 116 H 23 112/86 98 03/12/24 00:51 98.2 F 115 H 25 H 120/86 100 03/12/24 00:46 117 H 26 H 118/83 99 03/12/24 00:05 111 H 20 118/83 97 03/11/24 23:45 123 H 28 H 113/79 03/11/24 23:21 100 03/11/24 23:00 122 H 28 H 119/88 98 03/11/24 22:55 94 L 03/11/24 22:32 118 H 22 113/79 99 03/11/24 22:30 122 H 29 H 90/67 100 03/11/24 22:00 127 H 23 106/92 99 03/11/24 21:40 133 H 27 H 118/96 99 03/11/24 21:03 141 H 26 H 109/91 100 03/11/24 20:30 128 H 19 124/100 100 03/11/24 20:00 137 H 34 H 115/97 99 03/11/24 19:39 98.2 F 132 H 140 H 24 120/86 94 L Pain Assessment - Last Documented Pain Intensity 0 Pain Scale Used 0-10 Pain Scale Intake and Output: Intake & Output 03/10/24 03/11/24 03/12/24 03/13/24 11:59 11:59 11:59 11:59 Intake Total 455 Balance 455 Weight 59.5 kg Lab Results: Lab Results-Last 24 Hours 03/11/24 03/11/24 03/11/24 Range/Units 20:00 20:00 20:00 WBC 7.0 (4.0-10.5) x10^3/uL RBC 5.06 (4.1-5.6) x10^6/uL Hgb 13.6 (12.5-18.0) g/dL Hct 42.9 (42-50) % MCV 84.8 (78-100) fL MCH 26.9 (26-32) pg MCHC 31.7 L (32-36) g/dL RDW 20.6 H (11.5-14.0) % Plt Count 253 (150-450) x10^3/uL MPV 9.4 (7.5-11.0) fL Gran % 69.6 H (36.0-66.0) % Immature Gran % (Auto) 0.4 (0.00-0.4) % Nucleat RBC Rel Count 0.0 (0.00-0.1) % Eos # (Auto) 0.06 (0-0.5) x10^3/uL Immature Gran # (Auto) 0.03 (0.00-0.03) x10^3u/L Absolute Lymphs (auto) 1.41 (1.0-4.6) x10^3/uL Absolute Monos (auto) 0.55 (0.0-1.3) x10^3/uL Absolute Nucleated RBC 0.00 (0.00-0.01) x10^3u/L Lymphocytes % 20.3 L (24.0-44.0) % Monocytes % 7.9 (0.0-12.0) % Eosinophils % 0.9 (0.00-5.0) % Basophils % 0.9 (0.0-0.4) % Absolute Granulocytes 4.85 (1.4-6.9) x10^3/uL Basophils # 0.06 (0-0.4) x10^3/uL Sodium 131 L (135-145) mmol/L Potassium 5.1 (3.5-5.1) mmol/L Chloride 97 L (98-107) mmol/L Carbon Dioxide 18 L (22-30) mmol/L Anion Gap 20.7 H (5-15) MEQ/L BUN 35 H (9-20) mg/dL Creatinine 2.07 H (0.66-1.25) mg/dL Estimated GFR 36.9 ML/MIN Glucose 107 H (74-106) mg/dL Hemoglobin A1c (4.5-6.0) % Lactic Acid (0.4-2.0) Calcium 9.7 (8.4-10.2) mg/dL Magnesium 1.7 (1.6-2.3) mg/dL Total Bilirubin 5.40 H (0.2-1.3) mg/dL AST 45 (17-59) U/L ALT 30 (0-50) U/L Alkaline Phosphatase 180 H (38-126) U/L Creatine Kinase 66 (55-170) U/L Troponin I 0.075 H* (0.000-0.033) ng/mL NT-Pro-B Natriuret Pep 4170 (<300) pg/mL Serum Total Protein 8.1 (6.3-8.2) g/dL Albumin 4.5 (3.5-5.0) g/dL Lipase 32 (23-300) U/L 03/11/24 03/11/24 03/12/24 Range/Units 20:09 22:14 00:10 WBC (4.0-10.5) x10^3/uL RBC (4.1-5.6) x10^6/uL Hgb (12.5-18.0) g/dL Hct (42-50) % MCV (78-100) fL MCH (26-32) pg MCHC (32-36) g/dL RDW (11.5-14.0) % Plt Count (150-450) x10^3/uL MPV (7.5-11.0) fL Gran % (36.0-66.0) % Immature Gran % (Auto) (0.00-0.4) % Nucleat RBC Rel Count (0.00-0.1) % Eos # (Auto) (0-0.5) x10^3/uL Immature Gran # (Auto) (0.00-0.03) x10^3u/L Absolute Lymphs (auto) (1.0-4.6) x10^3/uL Absolute Monos (auto) (0.0-1.3) x10^3/uL Absolute Nucleated RBC (0.00-0.01) x10^3u/L Lymphocytes % (24.0-44.0) % Monocytes % (0.0-12.0) % Eosinophils % (0.00-5.0) % Basophils % (0.0-0.4) % Absolute Granulocytes (1.4-6.9) x10^3/uL Basophils # (0-0.4) x10^3/uL Sodium (135-145) mmol/L Potassium (3.5-5.1) mmol/L Chloride (98-107) mmol/L Carbon Dioxide (22-30) mmol/L Anion Gap (5-15) MEQ/L BUN (9-20) mg/dL Creatinine (0.66-1.25) mg/dL Estimated GFR ML/MIN Glucose (74-106) mg/dL Hemoglobin A1c (4.5-6.0) % Lactic Acid 4.6 H 3.9 H (0.4-2.0) Calcium (8.4-10.2) mg/dL Magnesium (1.6-2.3) mg/dL Total Bilirubin (0.2-1.3) mg/dL AST (17-59) U/L ALT (0-50) U/L Alkaline Phosphatase (38-126) U/L Creatine Kinase (55-170) U/L Troponin I 0.078 H* (0.000-0.033) ng/mL NT-Pro-B Natriuret Pep (<300) pg/mL Serum Total Protein (6.3-8.2) g/dL Albumin (3.5-5.0) g/dL Lipase (23-300) U/L 03/12/24 03/12/24 03/12/24 Range/Units 04:14 04:14 04:14 WBC 7.8 (4.0-10.5) x10^3/uL RBC 4.59 (4.1-5.6) x10^6/uL Hgb 12.3 L (12.5-18.0) g/dL Hct 38.8 L (42-50) % MCV 84.5 (78-100) fL MCH 26.8 (26-32) pg MCHC 31.7 L (32-36) g/dL RDW 20.4 H (11.5-14.0) % Plt Count 248 (150-450) x10^3/uL MPV 10.0 (7.5-11.0) fL Gran % 68.6 H (36.0-66.0) % Immature Gran % (Auto) 0.6 H (0.00-0.4) % Nucleat RBC Rel Count 0.3 H (0.00-0.1) % Eos # (Auto) 0.04 (0-0.5) x10^3/uL Immature Gran # (Auto) 0.05 H (0.00-0.03) x10^3u/L Absolute Lymphs (auto) 1.52 (1.0-4.6) x10^3/uL Absolute Monos (auto) 0.81 (0.0-1.3) x10^3/uL Absolute Nucleated RBC 0.02 H (0.00-0.01) x10^3u/L Lymphocytes % 19.4 L (24.0-44.0) % Monocytes % 10.4 (0.0-12.0) % Eosinophils % 0.5 (0.00-5.0) % Basophils % 0.5 (0.0-0.4) % Absolute Granulocytes 5.36 (1.4-6.9) x10^3/uL Basophils # 0.04 (0-0.4) x10^3/uL Sodium 132 L (135-145) mmol/L Potassium 4.7 (3.5-5.1) mmol/L Chloride 101 (98-107) mmol/L Carbon Dioxide 18 L (22-30) mmol/L Anion Gap 17.7 H (5-15) MEQ/L BUN 37 H (9-20) mg/dL Creatinine 2.05 H (0.66-1.25) mg/dL Estimated GFR 37.3 ML/MIN Glucose 144 H (74-106) mg/dL Hemoglobin A1c (4.5-6.0) % Lactic Acid (0.4-2.0) Calcium 9.0 (8.4-10.2) mg/dL Magnesium (1.6-2.3) mg/dL Total Bilirubin 6.60 H (0.2-1.3) mg/dL AST 58 (17-59) U/L ALT 36 (0-50) U/L Alkaline Phosphatase 153 H (38-126) U/L Creatine Kinase (55-170) U/L Troponin I 0.078 H* (0.000-0.033) ng/mL NT-Pro-B Natriuret Pep (<300) pg/mL Serum Total Protein 7.3 (6.3-8.2) g/dL Albumin 3.9 (3.5-5.0) g/dL Lipase (23-300) U/L 03/12/24 03/12/24 Range/Units 04:50 05:15 WBC (4.0-10.5) x10^3/uL RBC (4.1-5.6) x10^6/uL Hgb (12.5-18.0) g/dL Hct (42-50) % MCV (78-100) fL MCH (26-32) pg MCHC (32-36) g/dL RDW (11.5-14.0) % Plt Count (150-450) x10^3/uL MPV (7.5-11.0) fL Gran % (36.0-66.0) % Immature Gran % (Auto) (0.00-0.4) % Nucleat RBC Rel Count (0.00-0.1) % Eos # (Auto) (0-0.5) x10^3/uL Immature Gran # (Auto) (0.00-0.03) x10^3u/L Absolute Lymphs (auto) (1.0-4.6) x10^3/uL Absolute Monos (auto) (0.0-1.3) x10^3/uL Absolute Nucleated RBC (0.00-0.01) x10^3u/L Lymphocytes % (24.0-44.0) % Monocytes % (0.0-12.0) % Eosinophils % (0.00-5.0) % Basophils % (0.0-0.4) % Absolute Granulocytes (1.4-6.9) x10^3/uL Basophils # (0-0.4) x10^3/uL Sodium (135-145) mmol/L Potassium (3.5-5.1) mmol/L Chloride (98-107) mmol/L Carbon Dioxide (22-30) mmol/L Anion Gap (5-15) MEQ/L BUN (9-20) mg/dL Creatinine (0.66-1.25) mg/dL Estimated GFR ML/MIN Glucose (74-106) mg/dL Hemoglobin A1c 6.98 H (4.5-6.0) % Lactic Acid 3.7 H (0.4-2.0) Calcium (8.4-10.2) mg/dL Magnesium (1.6-2.3) mg/dL Total Bilirubin (0.2-1.3) mg/dL AST (17-59) U/L ALT (0-50) U/L Alkaline Phosphatase (38-126) U/L Creatine Kinase (55-170) U/L Troponin I (0.000-0.033) ng/mL NT-Pro-B Natriuret Pep (<300) pg/mL Serum Total Protein (6.3-8.2) g/dL Albumin (3.5-5.0) g/dL Lipase (23-300) U/L Radiology Exams: Radiology Procedures Category Date Time Status CHEST 1 VIEW (PORTABLE) Stat Exams 03/11/24 21:17 Completed ECHO W/2D AND DOPPLER [US] Routine Exams 03/12/24 08:02 Taken UPPER ABDOMEN [US] Routine Exams 03/12/24 10:16 Ordered Multi-Disciplinary Progress Notes: Multi-Disciplinary Progress Notes 03/12/24 12:09 Case Management Note by Malka Barton S/[facility]- THEY WILL SEE PATIENT LATER TODAY AND BRING HIM A BLOOD PRESSURE MONITOR TO TAKE HOME. Initialized on 03/12/24 12:09 - END OF NOTE 03/12/24 12:01 Case Management Note by Malka Barton/Lara [employer] INTERLOCKING AND SIGNAL MECHANIC ABOUT GETTING PATIENT A GLUCOMETER. PATIENT'S MED LIST CURRENTLY DOS NOT SHOW ANY DIABETIC MEDS. 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 HE HAS A FRIEND GOING TO LOOK AT HIS BOTTLE AT HOME AND CALL HIM WITH THE NAME. ANASTACIA PLANS TO CHECK AN HGB A1C TO DECIDE ABOUT GLUCOMETER NEEDS Initialized on 03/12/24 12:01 - END OF NOTE 03/12/24 12:00 Case Management Note by Malka Barton REFERRAL SUBMITTED TO [facility] Initialized on 03/12/24 12:00 - END OF NOTE 03/12/24 11:54 Case Management Note by Malka Barton Addendum entered by Malka Barton 03/12/24 11:57: PATIENT REPORTS HE HAS SINCE SWITCHED TO [facility]LE[facility] Original Note: PER MEDICAID- PATIENT'S PCP IS DR. ALPESH RAMIRES Initialized on 03/12/24 11:54 - END OF NOTE 03/12/24 11:37 Case Management Note by Malka Barton S/W [employer]- PATIENT HAS CURRENT ORDERS FOR 3L/NC 05/05 AND HAS PORTABILITY Initialized on 03/12/24 11:37 - END OF NOTE Assessment/Plan (1) Atrial flutter with rapid ventricular response Current Visit: Yes Status: Acute Assessment & Plan: -Converted now in NS -Cardiology consulted, appreciate recs, agree with plan to continue Coreg and ASA, holding diuretic for now due to kidney function - follow up in 2 weeks at [facility] consider NOAC Code(s): I48.92 - UNSPECIFIED ATRIAL FLUTTER (2) CHF (congestive heart failure) Current Visit: Yes Status: Acute Assessment & Plan: -Echo from 2019 showing EF of 40% -Echo ordered with pre-peterson showing EF of 27% -Cardiology following, continue ASA/Coreg follow up in office in 2 weeks -BNP at 4170 - Code(s): I50.9 - HEART FAILURE, UNSPECIFIED (3) HTN (hypertension) Current Visit: Yes Status: Acute Assessment & Plan: -stable, continue home meds Code(s): I10 - ESSENTIAL (PRIMARY) HYPERTENSION (4) Acute renal failure Current Visit: Yes Status: Acute Assessment & Plan: -baseline creat around 1.7, today at 2.05, due to CHF with low EF, will give 500ml fluid bolus -AVoid JANETH/ARB/Diuretic/NSAID -Monitor renal/lytes -renal US (5) Lactic acidosis Current Visit: Yes Status: Acute Assessment & Plan: -500ml fluid bolus -repeat LA -UDS Code(s): E87.20 - ACIDOSIS, UNSPECIFIED (6) COPD (chronic obstructive pulmonary disease) Current Visit: No Status: Acute Assessment & Plan: -cxr negative for acute pneumonic process or CHF -RT eval -Supplemental oxygen with goal spo2 >92% -Qualify for home oxygen/wean (7) Total bilirubin, elevated Current Visit: Yes Status: Acute Assessment & Plan: -Abdominal US pending -Hepatitis panel -AST/ALT/ALK phos wnl -no h/o cirrhosis -alcohol abuse in the past, sober x 14 years per pt Code(s): R17 - UNSPECIFIED JAUNDICE
[2024-03-12 13:30] LABS: ALBUMIN 4.2 g/dL (3.5-5.0); ANION GAP 16.9 MEQ/L (5-15); BILIRUBIN,TOTAL 5.7 mg/dL (0.2-1.3); Calcium 8.9 mg/dL (8.4-10.2); Creatinine 1 2.04 mg/dL (0.66-1.25); EST GLOMERULAR FILTRATION RATE 37.6 ML/MIN; Potassium 4.4 mmol/L (3.5-5.1); Total Protein 7.7 g/dL (6.3-8.2)
[2024-03-12 14:04] LABS: ADD URINE CULTURE? YES (NO); Appearance Clear (Clear); Bacteria None Seen /HPF (None Seen); Bilirubin Small (Negative); Blood Small (Negative); Epithelial Cells None Seen /HPF (None Seen); Glucose, Urine Negative (Negative); Ketones Negative (Negative); Leukocyte Esterase Trace (Negative); Nitrite Negative (Negative); Ph 5.5 (4.6-8.0); Protein,Urine Dip 30 (Negative); Specific Gravity 1.015 (1.005-1.030); WBC 0-2 /HPF (0-5)
[2024-03-12 14:13] LABS: Amphetamine,Urine POSITIVE (NEGATIVE); Barbiturate,Urine NEGATIVE (NEGATIVE); Benzodiazepine,Urine NEGATIVE (NEGATIVE); Cocaine,Urine NEGATIVE (NEGATIVE); Methadone,Urine NEGATIVE (NEGATIVE); Opiate,Urine POSITIVE (NEGATIVE); PCP,Urine NEGATIVE (NEGATIVE); THC,Urine NEGATIVE (NEGATIVE)
--- NOTE | 2024-03-12 16:29 | XRAY ---
Indication: Elevated bilirubin. Two-dimensional abdominal sonogram performed. Comparison: None Pancreas not well seen due to overlying bowel gas. Visualized liver and spleen are homogeneous in echogenicity. No organomegaly or free fluid. Gallbladder normally distended with minimal sludge in the dependent portion. No gallstones. Abnormal gallbladder wall thickening up to 6 mm with tiny pericholecystic fluid. Common bile duct measures 3.3 mm. No intrahepatic biliary distention. Visualized aorta and IVC are normal in course and caliber. Right kidney measures 9.1 x 3.8 x 3.6 cm and left measures 9.2 x 4.7 x 4.3 cm. No focal solid/cystic renal mass or hydronephrosis. Impression: 1. Nonvisualization pancreas. 2. Tiny gallbladder sludge. Also abnormal gallbladder wall thickening with tiny pericholecystic fluid concerning for cholecystitis. 3. Remaining abdominal sonogram is negative.
[2024-03-12] MEDS: Zofran 4 MG/2 ML VIAL IV PRN (19:41)
[2024-03-12] MEDS: Sodium Chloride 0.9% 1000 ML 1,000 ML IV SCH (19:45)
[2024-03-12] MEDS: TYLENOL 325 MG PO PRN (22:13)
[2024-03-13 07:03] VITALS: TEMP 97.4
--- NOTE | 2024-03-13 08:12 | PCM.NOTE ---
Date and Time: 03/13/24809 Subjective Assessment: Mr. Dubon is a 58 year old male with pmhx of CHF, COPD, HLD,and HTN admitted for chest pain, EMILI, Lactic acidosis, and aflutter RVR after experiencing pressure-like chest pain with associated nausea and vomiting while walking to his car. Patient was started on cardizem drip and later converted. Cardiology has been consulted with recommendations to continue current medication regimen/obtain records from [facility] with follow up at [facility] in 2 weeks/consider NOAC. Vomiting overnight. Abdominal US showing GB sludge, abnormal GB wall thickening with tiny pericholecystic fluid concerning for cholecystitis. Will consult surgery today. Objective Data Vital Signs: Vital Signs - 24 hr Temp Pulse Resp BP Pulse Ox 03/13/24 06:00 97.4 F 121 H 24 141/103 96 03/13/24 05:00 120 H 17 144/105 03/13/24 04:00 125 H 16 124/106 03/13/24 03:02 125 H 88/61 03/13/24 03:01 129 H 20 99 03/13/24 03:00 126 H 27 H 100 03/13/24 02:50 127 H 22 96 03/13/24 02:40 125 H 24 97 03/13/24 02:30 128 H 20 93 L 03/13/24 02:20 125 H 18 96 03/13/24 02:10 126 H 18 98 03/13/24 02:01 128 H 28 H 97 03/13/24 01:00 128 H 35 H 138/119 95 03/13/24 00:00 122 H 26 H 104/86 03/12/24 23:08 121 H 17 140/111 03/12/24 23:07 115 H 21 03/12/24 23:02 117 H 21 03/12/24 22:00 118 H 23 151/121 03/12/24 21:09 113 H 38 H 156/121 03/12/24 21:07 113 H 27 H 171/132 03/12/24 21:06 114 H 18 03/12/24 21:05 113 H 29 H 03/12/24 21:01 113 H 26 H 57/32 03/12/24 20:00 96.9 F 113 H 21 145/117 97 03/12/24 19:16 114 H 26 H 144/103 03/12/24 17:00 111/84 03/12/24 16:00 88 112/89 03/12/24 15:45 112/91 03/12/24 15:43 66 L 03/12/24 15:41 72 L 03/12/24 14:55 88 20 85 L 03/12/24 13:01 125/91 03/12/24 12:59 83 03/12/24 12:50 85 03/12/24 12:40 93 H 03/12/24 12:30 94 H 26 H 03/12/24 12:20 84 19 86 L 03/12/24 12:10 87 26 H 89 L 03/12/24 12:00 79 18 80 L 03/12/24 11:50 79 15 03/12/24 11:47 87 16 03/12/24 11:33 86 20 129/95 03/12/24 11:32 86 18 03/12/24 11:16 78 18 156/105 03/12/24 11:15 89 17 03/12/24 11:10 89 22 03/12/24 11:00 148 H 03/12/24 10:51 87 03/12/24 10:40 99 H 19 03/12/24 10:32 14 03/12/24 10:24 80 18 95 03/12/24 10:15 29 H 124/94 03/12/24 10:01 77 18 108/83 03/12/24 10:00 76 16 124/94 03/12/24 09:50 86 28 H 03/12/24 09:47 86 20 03/12/24 09:30 77 14 132/107 03/12/24 09:16 80 18 123/93 03/12/24 09:00 84 16 108/83 03/12/24 08:45 83 20 123/83 03/12/24 08:31 100 H 21 132/94 03/12/24 08:28 81 19 123/94 03/12/24 08:20 80 19 Pain Assessment - Last Documented Pain Intensity 9 Pain Scale Used FLACC Intake and Output: Intake & Output 03/10/24 03/11/24 03/12/24 03/13/24 11:59 11:59 11:59 11:59 Intake Total 455 2368 Output Total 450 Balance 455 1918 Weight 59.5 kg Lab Results: Lab Results-Last 24 Hours 03/12/24 03/12/24 03/12/24 Range/Units 05:15 13:10 13:10 Sodium 134 L (135-145) mmol/L Potassium 4.4 (3.5-5.1) mmol/L Chloride 102 (98-107) mmol/L Carbon Dioxide 20 L (22-30) mmol/L Anion Gap 16.9 H (5-15) MEQ/L BUN 38 H (9-20) mg/dL Creatinine 2.04 H (0.66-1.25) mg/dL Estimated GFR 37.6 ML/MIN Glucose 100 (74-106) mg/dL Hemoglobin A1c 6.98 H (4.5-6.0) % Lactic Acid 3.3 H (0.4-2.0) Calcium 8.9 (8.4-10.2) mg/dL Total Bilirubin 5.70 H (0.2-1.3) mg/dL AST 71 H (17-59) U/L ALT 43 (0-50) U/L Alkaline Phosphatase 138 H (38-126) U/L Lactate Dehydrogenase (120-246) U/L Serum Total Protein 7.7 (6.3-8.2) g/dL Albumin 4.2 (3.5-5.0) g/dL Urine Color (Yellow) Urine Appearance (Clear) Urine pH (4.6-8.0) Ur Specific [place] (1.005-1.030) Urine Protein (Negative) Urine Glucose (UA) (Negative) mg/dL Urine Ketones (Negative) Urine Blood (Negative) Urine Nitrite (Negative) Urine Bilirubin (Negative) Urine Urobilinogen (0.2) mg/dL Ur Leukocyte Esterase (Negative) U Hyaline Cast (Auto) (0-2) /LPF Urine Microscopic RBC (0-5) /HPF Urine Microscopic WBC (0-5) /HPF Ur Epithelial Cells (None Seen) /HPF Urine Bacteria (None Seen) /HPF Urine Culture Reflexed (NO) Urine Opiates Level (NEGATIVE) Ur Methadone (NEGATIVE) Urine Barbiturates (NEGATIVE) Ur Phencyclidine (PCP) (NEGATIVE) Urine Amphetamine (NEGATIVE) U Benzodiazepine Level (NEGATIVE) Urine Cocaine (NEGATIVE) Urine Marijuana (THC) (NEGATIVE) 03/12/24 03/12/24 03/12/24 Range/Units 13:54 13:54 Unknown Sodium (135-145) mmol/L Potassium (3.5-5.1) mmol/L Chloride (98-107) mmol/L Carbon Dioxide (22-30) mmol/L Anion Gap (5-15) MEQ/L BUN (9-20) mg/dL Creatinine (0.66-1.25) mg/dL Estimated GFR ML/MIN Glucose (74-106) mg/dL Hemoglobin A1c (4.5-6.0) % Lactic Acid (0.4-2.0) Calcium (8.4-10.2) mg/dL Total Bilirubin (0.2-1.3) mg/dL AST (17-59) U/L ALT (0-50) U/L Alkaline Phosphatase (38-126) U/L Lactate Dehydrogenase 285 H (120-246) U/L Serum Total Protein (6.3-8.2) g/dL Albumin (3.5-5.0) g/dL Urine Color Dark Yellow (Yellow) Urine Appearance Clear (Clear) Urine pH 5.5 (4.6-8.0) Ur Specific [place] 1.015 (1.005-1.030) Urine Protein 30 (Negative) Urine Glucose (UA) Negative (Negative) mg/dL Urine Ketones Negative (Negative) Urine Blood Small A (Negative) Urine Nitrite Negative (Negative) Urine Bilirubin Small A (Negative) Urine Urobilinogen 1.0 A (0.2) mg/dL Ur Leukocyte Esterase Trace A (Negative) U Hyaline Cast (Auto) 3-5 A (0-2) /LPF Urine Microscopic RBC 3-5 (0-5) /HPF Urine Microscopic WBC 0-2 (0-5) /HPF Ur Epithelial Cells None Seen (None Seen) /HPF Urine Bacteria None Seen (None Seen) /HPF Urine Culture Reflexed YES (NO) Urine Opiates Level POSITIVE A (NEGATIVE) Ur Methadone NEGATIVE (NEGATIVE) Urine Barbiturates NEGATIVE (NEGATIVE) Ur Phencyclidine (PCP) NEGATIVE (NEGATIVE) Urine Amphetamine POSITIVE A (NEGATIVE) U Benzodiazepine Level NEGATIVE (NEGATIVE) Urine Cocaine NEGATIVE (NEGATIVE) Urine Marijuana (THC) NEGATIVE (NEGATIVE) Radiology Exams: Radiology Procedures Category Date Time Status CHEST 1 VIEW (PORTABLE) Stat Exams 03/11/24 21:17 Completed ECHO W/2D AND DOPPLER [US] Routine Exams 03/12/24 08:02 Taken UPPER ABDOMEN [US] Routine Exams 03/12/24 10:16 Completed Multi-Disciplinary Progress Notes: Multi-Disciplinary Progress Notes 03/12/24 12:09 Case Management Note by Malka Barton/Lara ACO- THEY WILL SEE PATIENT LATER TODAY AND BRING HIM A BLOOD PRESSURE MONITOR TO TAKE HOME. Initialized on 03/12/24 12:09 - END OF NOTE 03/12/24 12:01 Case Management Note by Malka Barton/Lara GALAVIZ HSE COORDINATOR ABOUT GETTING PATIENT A GLUCOMETER. PATIENT'S MED LIST CURRENTLY DOS NOT SHOW ANY DIABETIC MEDS. 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 HE HAS A FRIEND GOING TO LOOK AT HIS BOTTLE AT HOME AND CALL HIM WITH THE NAME. ANASTACIA PLANS TO CHECK AN HGB A1C TO DECIDE ABOUT GLUCOMETER NEEDS Initialized on 03/12/24 12:01 - END OF NOTE 03/12/24 12:00 Case Management Note by Malka Barton REFERRAL SUBMITTED TO [facility] Initialized on 03/12/24 12:00 - END OF NOTE 03/12/24 11:54 Case Management Note by Malka Barton Addendum entered by Malka Barton 03/12/24 11:57: PATIENT REPORTS HE HAS SINCE SWITCHED TO [facility]SE [facility]LE[facility] Original Note: PER MEDICAID- PATIENT'S PCP IS DR. ALPESH RAMIRES Initialized on 03/12/24 11:54 - END OF NOTE 03/12/24 11:37 Case Management Note by Malka Barton/Lara ELROY BROTHERS- PATIENT HAS CURRENT ORDERS FOR 3L/NC 05/05 AND HAS PORTABILITY Initialized on 03/12/24 11:37 - END OF NOTE Assessment/Plan (1) Atrial flutter with rapid ventricular response Current Visit: Yes Status: Acute Assessment & Plan: -Converted now in NS -Cardiology consulted, appreciate recs, agree with plan to continue Coreg and ASA, holding diuretic for now due to kidney function - follow up in 2 weeks at [facility] consider NOAC Code(s): I48.92 - UNSPECIFIED ATRIAL FLUTTER (2) CHF (congestive heart failure) Current Visit: Yes Status: Acute Assessment & Plan: -Echo from 2019 showing EF of 40% -Echo ordered with pre-peterson showing EF of 27% -Cardiology following, continue ASA/Coreg follow up in office in 2 weeks -BNP at 4170 - Code(s): I50.9 - HEART FAILURE, UNSPECIFIED (3) HTN (hypertension) Current Visit: Yes Status: Acute Assessment & Plan: -stable, continue home meds Code(s): I10 - ESSENTIAL (PRIMARY) HYPERTENSION (4) Acute renal failure Current Visit: Yes Status: Acute Assessment & Plan: -baseline creat around 1.7, today at 2.05, due to CHF with low EF, will give 500ml fluid bolus -AVoid JANETH/ARB/Diuretic/NSAID -Monitor renal/lytes -renal US (5) Lactic acidosis Current Visit: Yes Status: Acute Assessment & Plan: -500ml fluid bolus -repeat LA -UDS Code(s): E87.20 - ACIDOSIS, UNSPECIFIED (6) COPD (chronic obstructive pulmonary disease) Current Visit: No Status: Acute Assessment & Plan: -cxr negative for acute pneumonic process or CHF -RT eval -Supplemental oxygen with goal spo2 >92% -Qualify for home oxygen/wean (7) Total bilirubin, elevated Current Visit: Yes Status: Acute Assessment & Plan: -Abdominal US pending -Hepatitis panel -AST/ALT/ALK phos wnl -no h/o cirrhosis -alcohol abuse in the past, sober x 14 years per pt Code(s): I48.92 - UNSPECIFIED ATRIAL FLUTTER (2) CHF (congestive heart failure) Current Visit: Yes Status: Acute Code(s): I50.9 - HEART FAILURE, UNSPECIFIED (3) HTN (hypertension) Current Visit: Yes Status: Acute Code(s): I10 - ESSENTIAL (PRIMARY) HYPERTENSION (4) Acute renal failure Current Visit: Yes Status: Acute (5) Lactic acidosis Current Visit: Yes Status: Acute Code(s): E87.20 - ACIDOSIS, UNSPECIFIED (6) COPD (chronic obstructive pulmonary disease) Current Visit: No Status: Acute (7) Total bilirubin, elevated Current Visit: Yes Status: Acute Code(s): R17 - UNSPECIFIED JAUNDICE
[2024-03-13 08:14] LABS: HBsAg Screen Negative (Negative); HCV Ab Non Reactive (Non Reactive); Hep A Ab, IgM Negative (Negative); Hep B Core Ab, IgM Negative (Negative)
[2024-03-13 08:31] LABS: Absolute Neutrophil Ct (ANC) 15.42 x10^3/uL (1.4-6.9); BASOPHIL % 0.2 % (0.0-0.4); Basophil (Absolute #) 0.03 x10^3/uL (0-0.4); Eosinophil (Absolute #) 0 x10^3/uL (0-0.5); Hematocrit 41.4 % (42-50); Hemoglobin 12.5 g/dL (12.5-18.0); IMMATURE GRAN # 0.08 x10^3u/L (0.00-0.03); IMMATURE GRAN % 0.5 % (0.00-0.4); Lymphocyte (Absolute #) 0.92 x10^3/uL (1.0-4.6); Lymphocytes % 5.3 % (24.0-44.0); Mean Cell Volume 88.8 fL (78-100); Mean Corpuscular Hemoglobin 26.8 pg (26-32); Mean Corpuscular Hgb Concent. 30.2 g/dL (32-36); Mean Platelet Volume 9.9 fL (7.5-11.0); Monocytes % 5.7 % (0.0-12.0); NUCLEATED RBC # 0.05 x10^3u/L (0.00-0.01); NUCLEATED RBC % 0.3 % (0.00-0.1); Neutrophil % 88.3 % (36.0-66.0); Platelet Count 205 x10^3/uL (150-450); Red Blood Count 4.66 x10^6/uL (4.1-5.6); Red Cell Distribution Width 20.8 % (11.5-14.0); White Blood Count 17.5 x10^3/uL (4.0-10.5)
[2024-03-13 08:44] LABS: ALBUMIN 3.9 g/dL (3.5-5.0); ANION GAP 23.1 MEQ/L (5-15); BILIRUBIN,TOTAL 8.2 mg/dL (0.2-1.3); Creatinine 1 2.21 mg/dL (0.66-1.25); EST GLOMERULAR FILTRATION RATE 34.1 ML/MIN; Total Protein 7.2 g/dL (6.3-8.2)
[2024-03-13 09:18] LABS: Potassium 5.6 mmol/L (3.5-5.1)
[2024-03-13] MEDS ORDERED: Hydromorphone 1 mg/ml Injection IV PRN (09:29)
[2024-03-13] MEDS: NORCO 5/325 MG PO PRN (10:11)
[2024-03-13 10:23] VITALS: RESP 17; O2SAT 86
[2024-03-13] MEDS: PHARMACY DOSING REQUEST MC ONE (10:45)
[2024-03-13] MEDS ORDERED: PHARMACY DOSING REQUEST MC ONE (11:00)
--- NOTE | 2024-03-13 11:37 | XRAY ---
CLINICAL HISTORY: abdominal pain COMPARISON: PRIOR CT 02/05/2024 22:22:04 HORTICULTURAL FARMWORKER TECHNIQUE: A CT scan of the abdomen and pelvis was performed without IV contrast administration. Coronal and sagittal reconstructive images were also obtained. One of the following dose reduction techniques was utilized for this exam: Automated exposure control, adjustment of the mA and/or kV according to patient size, and use of iterative reconstruction?. FINDINGS: Redomenstration of smudged peritoneal and retroperitoneal fat planes which seem increased and more prominent in comparison with the prior CT 02/05/2024. Redomenstraion of the severe edematous greene colon wall and also the small bowel quintanilla, which seem increased and more prominent in comparison with the prior CT 02/05/2024. The superior mesenteric vein is distended,which could be because of congestion or thrombus. The appendix is also thickened measuring up to 9mm without focal yoon appendiceal inflammatory changes Redomenstration of a small amount of ascites which seem less than prior in comparison with the prior CT 02/05/2024. No free air is noted Average-sized liver changes showing undulant hepatic outline and prominent interlobar. It shows homogenous parenchymal attenuation. No dilated intra-hepatic biliary tracts. Distended gall bladder showing fluid/fluid level with no obvious radiodense calculi. No pericholecystic collections. Atrophic changes of the pancreas. Thickened adrenal glands. The spleen and IVC are unremarkable. Both kidneys are of average size and shape with preserved parenchymal thickness. Left renal lower calyceal 3 mm non-obstructing calculus. No right calculi. No hydronephrosis. The urinary bladder shows no masses or diverticular outpouchings. Average-sized prostate showing fine calcifications. Aortoiliac atheromatous calcifications. Mild subcutaneous soft tissue edema of the pelviabdominal quintanilla. No obvious pathologically enlarged abdominal or pelvic lymph nodes. Scanned osseous structures show spondylosis. No destruction. IMPRESSION: 1. Redomenstration of smudged peritoneal and retroperitoneal fat planes which seem increased and more prominent in comparison with the prior CT 02/05/2024. 2. Redomenstraion of the severe edematous greene colon wall and also the small bowel quintanilla, which seem increased and more prominent in comparison with the prior CT, Findings may be secondary to ischemic or infectious/inflammatory process for clinical correlation. 3. The superior mesenteric vein is distended, which could be because of congestion or thrombus, further evaluation with CT with contrast or US DOPPLER. 4. The appendix is also thickened measuring up to 9 mm without focal yoon appendiceal inflammatory changes, which is not specific for appendicitis and could be because of greene-bowel edema. 5. Redomenstration of a small amount of ascites, which seem less than prior in comparison. 6. No free air is noted 7. Rest of the scan as the prior CT 02/05/2024 22:22:04 HORTICULTURAL FARMWORKER: Parenchymatous liver changes. Advise LFT correlation. Gall bladder sludge.Left renal lower calyceal non-obstructing calculus. [facility] ER was called at [phone] at 10:12 AM HORTICULTURAL FARMWORKER, 03/13/2024 and results were verbally communicated to Oliva Quiñonez Electronically Signed by: Carol Ann Arora MD. (03/13/2024 11:34:17 EDT)
[2024-03-13] MEDS: Sodium Bicarbonate 50 MEQ/50 ML VIAL*** 150 MEQ in Dextrose 5%/Water IV Soln. 1000 ML 1... IV SCH (12:08)
[2024-03-13] MEDS: Sodium Chloride 0.9% 500 ML 500 ML IV ONE (12:15)
[2024-03-13] MEDS: LEVOFLOXACIN 750MG/150ML D5W 750 MG/150 ML BAG IV SCH (12:21)
[2024-03-13] MEDS: Hydromorphone 1 mg/ml Injection IV PRN (12:22)
--- NOTE | 2024-03-13 12:48 | PCM.DS ---
Discharge Summary Date of Admission: 03/11/24 23:14 Admitting Physician: TRENTON GURROLA MD Consults: Consults on Case 03/12/24 00:52 Case Management SDOH DC Needs Assessment ROUTINE 03/12/24 10:09 Consult Cardiology ROUTINE 03/13/24 08:16 Consult Surgery ROUTINE Primary Care Provider: GUANAKO GALICIA Allergies Allergies varenicline tartrate [From Chantix] Allergy (Severe, Verified 02/05/24 22:18) Swelling codeine Adverse Reaction (Severe, Verified 02/05/24 22:18) black out Penicillins Adverse Reaction (Severe, Verified 03/13/24 10:57) "It gives me a heart attack" Hospital Summary - Hospital Course Hospital Course: Mr. Dubon is a 58 year old male with pmhx of CHF, COPD, HLD,and HTN admitted for chest pain, EMILI, Lactic acidosis, and aflutter RVR after experiencing pressure-like chest pain with associated nausea and vomiting while walking to his car. Patient was started on cardizem drip and later converted. Cardiology has been consulted with recommendations to continue current medication regimen/obtain records from [facility] with follow up at PM in 2 weeks/consider NOAC. Vomiting overnight with severe abdominal pain. Lab findings showing WBC at 17.5 - was normal yesterday, acidosis with co2 at 12, TBILI at 8.2>5.7>5.4, noted transamanitis, Abdominal US showing GB sludge, abnormal GB wall thickening with tiny pericholecystic fluid concerning for cholecystitis. CT Redomenstration of smudged peritoneal and retroperitoneal fat planes which seem increased and more prominent in comparison with the prior CT 02/05/2024. 2. Redomenstraion of the severe edematous greene colon wall and also the small bowel quintanilla, which seem increased and more prominent in comparison with the prior CT, Findings may be secondary to ischemic or infectious/inflammatory process for clinical correlation. The superior mesenteric vein is distended, which could be because of congestion or thrombus, further evaluation with CT with contrast or US DOPPLER. 4. The appendix is also thickened measuring up to 9 mm without focal yoon appendiceal inflammatory changes, which is not specific for appendicitis and could be because of greene-bowel edema. Redomenstration of a small amount of ascites, which seem less than prior in comparison. No free air is noted Rest of the scan as the prior CT 02/05/2024 22:22:04 SR COMMUNITY MANAGER: Parenchymatous liver changes. Advise LFT correlation. Gall bladder sludge.Left renal lower calyceal non- obstructing calculus. Surgery consulted and advised transfer to higher level of care. [facility] has accepted PT, Dr. Deshpande. Transport pending. Discharge Note Latest Assessment & Plan (1) Atrial flutter with rapid ventricular response Current Visit: Yes Status: Acute Assessment & Plan: -Converted now in NS -Cardiology consulted, appreciate recs, agree with plan to continue Coreg and ASA, holding diuretic for now due to kidney function - follow up in 2 weeks at [facility] consider NOAC Code(s): I48.92 - UNSPECIFIED ATRIAL FLUTTER (2) CHF (congestive heart failure) Current Visit: Yes Status: Acute Assessment & Plan: -Echo from 2019 showing EF of 40% -Echo ordered with pre-peterson showing EF of 27% -Cardiology following, continue ASA/Coreg follow up in office in 2 weeks -BNP at 4170 - Code(s): I50.9 - HEART FAILURE, UNSPECIFIED (3) HTN (hypertension) Current Visit: Yes Status: Acute Assessment & Plan: -stable, continue home meds Code(s): I10 - ESSENTIAL (PRIMARY) HYPERTENSION (4) Acute renal failure Current Visit: Yes Status: Acute Assessment & Plan: -baseline creat around 1.7, today at 2.05, due to CHF with low EF, will give 500ml fluid bolus -AVoid JANETH/ARB/Diuretic/NSAID -Monitor renal/lytes -renal US (5) Lactic acidosis Current Visit: Yes Status: Acute Assessment & Plan: -500ml fluid bolus -repeat LA -UDS 03/13: UDS + for amphetamine -LA at 6.3 - fluid bolus -Pending transfer -Levaquin started with flagyl -CT Redomenstration of smudged peritoneal and retroperitoneal fat planes which seem increased and more prominent in comparison with the prior CT 02/05/2024. 2. Redomenstraion of the severe edematous greene colon wall and also the small bowel quintanilla, which seem increased and more prominent in comparison with the prior CT, Findings may be secondary to ischemic or infectious/inflammatory process for clinical correlation. The superior mesenteric vein is distended, w hich could be because of congestion or thrombus, further evaluation with CT with contrast or US DOPPLER. 4. The appendix is also thickened measuring up to 9 mm without focal yoon appendiceal inflammatory changes, which is not specific for appendicitis and could be because of greene-bowel edema. Redomenstration of a small amount of ascites, which seem less than prior in comparison. No free air is noted Rest of the scan as the prior CT 02/05/2024 22:22:04 SR COMMUNITY MANAGER: Parenchymatous liver changes. Advise LFT correlation. Gall bladder sludge.Left renal lower calyceal non- obstructing calculus. Surgery consulted and advised transfer to higher level of care. [facility] has accepted PT, Dr. Deshpande. Transport pending. Code(s): E87.20 - ACIDOSIS, UNSPECIFIED (6) COPD (chronic obstructive pulmonary disease) Current Visit: No Status: Acute Assessment & Plan: -cxr negative for acute pneumonic process or CHF -RT eval -Supplemental oxygen with goal spo2 >92% -Qualify for home oxygen/wean (7) Total bilirubin, elevated Current Visit: Yes Status: Acute Assessment & Plan: -Abdominal US pending -Hepatitis panel -AST/ALT/ALK phos wnl -no h/o cirrhosis -alcohol abuse in the past, sober x 14 years per pt 03/13: -TBILI worsening now at 8.20 -Surgery consulted, would like pt transferred to higher level of care - [facility] accepting- transfer pending -CT Code(s): I48.92 - UNSPECIFIED ATRIAL FLUTTER I spent 35 minutes [id number] with the patient on the day of discharge performing discharge exam, discussing hospital stay and discharge instructions with patient and caregivers, preparation of discharge records, prescriptions & referral forms and addressing any questions/concerns the patient had as documented above. - Vitals & Intake/Output Vital Signs: Vital Signs Temperature 97.4 F 03/13/24 06:00 Pulse Rate 115 H 03/13/24 10:20 Respiratory Rate 17 03/13/24 10:20 Blood Pressure 126/99 03/13/24 10:20 O2 Sat by Pulse Oximetry 86 L 03/13/24 10:20 Intake & Output: Intake & Output 03/11/24 03/12/24 03/13/24 03/14/24 11:59 11:59 11:59 11:59 Intake Total 455 2748 Output Total 450 Balance 455 6922 Weight 59.5 kg - Lab Result Diagrams: 03/13/24 08:25 03/13/24 08:25 Lab Results-Last 24 Hrs: Lab Results-Last 24 Hours 03/12/24 03/12/24 03/12/24 Range/Units 13:10 13:10 13:54 WBC (4.0-10.5) x10^3/uL RBC (4.1-5.6) x10^6/uL Hgb (12.5-18.0) g/dL Hct (42-50) % MCV (78-100) fL MCH (26-32) pg MCHC (32-36) g/dL RDW (11.5-14.0) % Plt Count (150-450) x10^3/uL MPV (7.5-11.0) fL Gran % (36.0-66.0) % Immature Gran % (Auto) (0.00-0.4) % Nucleat RBC Rel Count (0.00-0.1) % Eos # (Auto) (0-0.5) x10^3/uL Immature Gran # (Auto) (0.00-0.03) x10^3u/L Absolute Lymphs (auto) (1.0-4.6) x10^3/uL Absolute Monos (auto) (0.0-1.3) x10^3/uL Absolute Nucleated RBC (0.00-0.01) x10^3u/L Lymphocytes % (24.0-44.0) % Monocytes % (0.0-12.0) % Eosinophils % (0.00-5.0) % Basophils % (0.0-0.4) % Absolute Granulocytes (1.4-6.9) x10^3/uL Basophils # (0-0.4) x10^3/uL Sodium 134 L (135-145) mmol/L Potassium 4.4 (3.5-5.1) mmol/L Chloride 102 (98-107) mmol/L Carbon Dioxide 20 L (22-30) mmol/L Anion Gap 16.9 H (5-15) MEQ/L BUN 38 H (9-20) mg/dL Creatinine 2.04 H (0.66-1.25) mg/dL Estimated GFR 37.6 ML/MIN Glucose 100 (74-106) mg/dL Lactic Acid 3.3 H (0.4-2.0) Calcium 8.9 (8.4-10.2) mg/dL Total Bilirubin 5.70 H (0.2-1.3) mg/dL AST 71 H (17-59) U/L ALT 43 (0-50) U/L Alkaline Phosphatase 138 H (38-126) U/L Lactate Dehydrogenase (120-246) U/L Serum Total Protein 7.7 (6.3-8.2) g/dL Albumin 4.2 (3.5-5.0) g/dL Urine Color Dark Yellow (Yellow) Urine Appearance Clear (Clear) Urine pH 5.5 (4.6-8.0) Ur Specific [place] 1.015 (1.005-1.030) Urine Protein 30 (Negative) Urine Glucose (UA) Negative (Negative) mg/dL Urine Ketones Negative (Negative) Urine Blood Small A (Negative) Urine Nitrite Negative (Negative) Urine Bilirubin Small A (Negative) Urine Urobilinogen 1.0 A (0.2) mg/dL Ur Leukocyte Esterase Trace A (Negative) U Hyaline Cast (Auto) 3-5 A (0-2) /LPF Urine Microscopic RBC 3-5 (0-5) /HPF Urine Microscopic WBC 0-2 (0-5) /HPF Ur Epithelial Cells None Seen (None Seen) /HPF Urine Bacteria None Seen (None Seen) /HPF Urine Culture Reflexed YES (NO) Urine Opiates Level (NEGATIVE) Ur Methadone (NEGATIVE) Urine Barbiturates (NEGATIVE) Ur Phencyclidine (PCP) (NEGATIVE) Urine Amphetamine (NEGATIVE) U Benzodiazepine Level (NEGATIVE) Urine Cocaine (NEGATIVE) Urine Marijuana (THC) (NEGATIVE) 03/12/24 03/12/24 03/13/24 Range/Units 13:54 Unknown 08:25 WBC 17.5 H (4.0-10.5) x10^3/uL RBC 4.66 (4.1-5.6) x10^6/uL Hgb 12.5 (12.5-18.0) g/dL Hct 41.4 L (42-50) % MCV 88.8 (78-100) fL MCH 26.8 (26-32) pg MCHC 30.2 L (32-36) g/dL RDW 20.8 H (11.5-14.0) % Plt Count 205 (150-450) x10^3/uL MPV 9.9 (7.5-11.0) fL Gran % 88.3 H (36.0-66.0) % Immature Gran % (Auto) 0.5 H (0.00-0.4) % Nucleat RBC Rel Count 0.3 H (0.00-0.1) % Eos # (Auto) 0 (0-0.5) x10^3/uL Immature Gran # (Auto) 0.08 H (0.00-0.03) x10^3u/L Absolute Lymphs (auto) 0.92 L (1.0-4.6) x10^3/uL Absolute Monos (auto) 1.00 (0.0-1.3) x10^3/uL Absolute Nucleated RBC 0.05 H (0.00-0.01) x10^3u/L Lymphocytes % 5.3 L (24.0-44.0) % Monocytes % 5.7 (0.0-12.0) % Eosinophils % 0.0 (0.00-5.0) % Basophils % 0.2 (0.0-0.4) % Absolute Granulocytes 15.42 H (1.4-6.9) x10^3/uL Basophils # 0.03 (0-0.4) x10^3/uL Sodium (135-145) mmol/L Potassium (3.5-5.1) mmol/L Chloride (98-107) mmol/L Carbon Dioxide (22-30) mmol/L Anion Gap (5-15) MEQ/L BUN (9-20) mg/dL Creatinine (0.66-1.25) mg/dL Estimated GFR ML/MIN Glucose (74-106) mg/dL Lactic Acid (0.4-2.0) Calcium (8.4-10.2) mg/dL Total Bilirubin (0.2-1.3) mg/dL AST (17-59) U/L ALT (0-50) U/L Alkaline Phosphatase (38-126) U/L Lactate Dehydrogenase 285 H (120-246) U/L Serum Total Protein (6.3-8.2) g/dL Albumin (3.5-5.0) g/dL Urine Color (Yellow) Urine Appearance (Clear) Urine pH (4.6-8.0) Ur Specific [place] (1.005-1.030) Urine Protein (Negative) Urine Glucose (UA) (Negative) mg/dL Urine Ketones (Negative) Urine Blood (Negative) Urine Nitrite (Negative) Urine Bilirubin (Negative) Urine Urobilinogen (0.2) mg/dL Ur Leukocyte Esterase (Negative) U Hyaline Cast (Auto) (0-2) /LPF Urine Microscopic RBC (0-5) /HPF Urine Microscopic WBC (0-5) /HPF Ur Epithelial Cells (None Seen) /HPF Urine Bacteria (None Seen) /HPF Urine Culture Reflexed (NO) Urine Opiates Level POSITIVE A (NEGATIVE) Ur Methadone NEGATIVE (NEGATIVE) Urine Barbiturates NEGATIVE (NEGATIVE) Ur Phencyclidine (PCP) NEGATIVE (NEGATIVE) Urine Amphetamine POSITIVE A (NEGATIVE) U Benzodiazepine Level NEGATIVE (NEGATIVE) Urine Cocaine NEGATIVE (NEGATIVE) Urine Marijuana (THC) NEGATIVE (NEGATIVE) 03/13/24 03/13/24 Range/Units 08:25 10:10 WBC (4.0-10.5) x10^3/uL RBC (4.1-5.6) x10^6/uL Hgb (12.5-18.0) g/dL Hct (42-50) % MCV (78-100) fL MCH (26-32) pg MCHC (32-36) g/dL RDW (11.5-14.0) % Plt Count (150-450) x10^3/uL MPV (7.5-11.0) fL Gran % (36.0-66.0) % Immature Gran % (Auto) (0.00-0.4) % Nucleat RBC Rel Count (0.00-0.1) % Eos # (Auto) (0-0.5) x10^3/uL Immature Gran # (Auto) (0.00-0.03) x10^3u/L Absolute Lymphs (auto) (1.0-4.6) x10^3/uL Absolute Monos (auto) (0.0-1.3) x10^3/uL Absolute Nucleated RBC (0.00-0.01) x10^3u/L Lymphocytes % (24.0-44.0) % Monocytes % (0.0-12.0) % Eosinophils % (0.00-5.0) % Basophils % (0.0-0.4) % Absolute Granulocytes (1.4-6.9) x10^3/uL Basophils # (0-0.4) x10^3/uL Sodium 131 L (135-145) mmol/L Potassium 5.6 H D (3.5-5.1) mmol/L Chloride 102 (98-107) mmol/L Carbon Dioxide 12 L* (22-30) mmol/L Anion Gap 23.1 H (5-15) MEQ/L BUN 41 H (9-20) mg/dL Creatinine 2.21 H (0.66-1.25) mg/dL Estimated GFR 34.1 ML/MIN Glucose 107 H (74-106) mg/dL Lactic Acid 6.3 H (0.4-2.0) Calcium 9.0 (8.4-10.2) mg/dL Total Bilirubin 8.20 H (0.2-1.3) mg/dL AST 118 H (17-59) U/L ALT 68 H (0-50) U/L Alkaline Phosphatase 150 H (38-126) U/L Lactate Dehydrogenase (120-246) U/L Serum Total Protein 7.2 (6.3-8.2) g/dL Albumin 3.9 (3.5-5.0) g/dL Urine Color (Yellow) Urine Appearance (Clear) Urine pH (4.6-8.0) Ur Specific [place] (1.005-1.030) Urine Protein (Negative) Urine Glucose (UA) (Negative) mg/dL Urine Ketones (Negative) Urine Blood (Negative) Urine Nitrite (Negative) Urine Bilirubin (Negative) Urine Urobilinogen (0.2) mg/dL Ur Leukocyte Esterase (Negative) U Hyaline Cast (Auto) (0-2) /LPF Urine Microscopic RBC (0-5) /HPF Urine Microscopic WBC (0-5) /HPF Ur Epithelial Cells (None Seen) /HPF Urine Bacteria (None Seen) /HPF Urine Culture Reflexed (NO) Urine Opiates Level (NEGATIVE) Ur Methadone (NEGATIVE) Urine Barbiturates (NEGATIVE) Ur Phencyclidine (PCP) (NEGATIVE) Urine Amphetamine (NEGATIVE) U Benzodiazepine Level (NEGATIVE) Urine Cocaine (NEGATIVE) Urine Marijuana (THC) (NEGATIVE) Micro Results-Entire Visit: Microbiology 03/12/24 13:54 Urine Culture - Preliminary Clean Catch Midstream NO GROWTH TO DATE 03/11/24 21:24 Blood Culture - Preliminary Blood 03/11/24 21:19 Blood Culture - Preliminary Blood - Radiology Exams Ordered Rad Exams-Entire Visit: Radiology Procedures Category Date Time Status ABDOMEN AND PELVIS W/0 CONTRAS [CT] Stat Exams 03/13/24 09:25 Completed CHEST 1 VIEW (PORTABLE) Stat Exams 03/11/24 21:17 Completed ECHO W/2D AND DOPPLER [US] Routine Exams 03/12/24 08:02 Taken UPPER ABDOMEN [US] Routine Exams 03/12/24 10:16 Completed - Procedures and Test Procedures and Tests throughout Hospitalization: Therapy Orders & Screens 03/11/24 23:21 Oxygen Nasal Cannula 3 lpm Comment: Diagnosis: Atrial fib/flutter Respiratory Therapy Consult ONCE Comment: Reason For Exam: Diagnosis: Atrial fib/flutter 03/12/24 00:52 RT Screen per Nursing Assess ONCE Comment: Protocol Order Physician Instructions: Greater than 3 points order RT Admission Screen Reason For Exam: Triggered on Admission Diagnosis: lactic acidosis; Atrial flutter w/RVR Diagnosis: lactic acidosis; Atrial flutter w/RVR Pneumonia: No Home O2: Yes: 3L NC Asthma: Yes CHF: Yes Home CPAP/BIPAP: No Home Nebs/MDI: Yes: 4x a day Total Points: 17 03/12/24 01:18 Respiratory Therapy Assessment DAILY Comment: Diagnosis: lactic acidosis; Atrial flutter w/RVR Discharge Exam General Appearance: moderate distress Neurologic Exam: alert, oriented x 3, cooperative Eye Exam: PERRL Ears, Nose, Throat Exam: normal ENT inspection Neck Exam: normal inspection Respiratory Exam: normal breath sounds, lungs clear Cardiovascular Exam: tachycardia Gastrointestinal/Abdomen Exam: normal bowel sounds, tenderness (TTP x 4 quads), guarding, rebound Male Genitalia Exam: deferred Rectal Exam: deferred Back Exam: normal inspection Extremity Exam: normal inspection Skin Exam: normal color Final Diagnosis/Problem List - Final Discharge Diagnosis/Problem (1) Atrial flutter with rapid ventricular response Current Visit: Yes Status: Acute Code(s): I48.92 - UNSPECIFIED ATRIAL FLUTTER (2) CHF (congestive heart failure) Current Visit: Yes Status: Acute Code(s): I50.9 - HEART FAILURE, UNSPECIFIED (3) HTN (hypertension) Current Visit: Yes Status: Acute Code(s): I10 - ESSENTIAL (PRIMARY) HYPERTENSION (4) Acute renal failure Current Visit: Yes Status: Acute (5) Lactic acidosis Current Visit: Yes Status: Acute Code(s): E87.20 - ACIDOSIS, UNSPECIFIED (6) COPD (chronic obstructive pulmonary disease) Current Visit: No Status: Acute (7) Total bilirubin, elevated Current Visit: Yes Status: Acute Code(s): R17 - UNSPECIFIED JAUNDICE - Discharge Disposition: XFER OTHER Condition: Fair Prescriptions: New Metronidazole 500 mg Premix [Flagyl 500 mg Ivpb] 500 mg IV Q8HT Hydromorphone 1 mg/1Ml Inj [Hydromorphone 1 mg/ml Injection] 1 mg IV Q4H PRN PRN PRN Reason: Pain Levofloxacin [Levofloxacin 750Mg/150Ml D5w] 750 mg IV QOD PANTOPRAZOLE 40 mg Tablet [Protonix 40MG Tablet] 40 mg PO DAILY tablet Albuterol 2.5 mg/3 ml Neb [Proventil 2.5 mg/3 ml Neb] 2.5 mg IH QIDRT Continue Carvedilol [Coreg ] 3.125 mg PO BID Sertraline HCl 50 mg [Zoloft 50 mg Tablet] 1 tab PO DAILY Tamsulosin HCl 0.4 mg [Flomax 0.4 MG] 0.4 mg PO HS Aspirin EC 81 mg [Ecotrin 81 mg] 81 mg PO DAILY Discontinued PANTOPRAZOLE 40 mg Tablet [Protonix 40MG Tablet] 40 mg PO DAILY Torsemide 20 mg [Demadex 20 mg] 20 mg PO DAILY Spironolactone 25 mg [Aldactone 25 MG] 0.5 tab PO DAILY Follow up with: TAYLOR LUI MD [CONSULTING PHYSICIAN] - 2 weeks
[2024-03-13 13:19] VITALS: BP 117/101; PULSE 116
[2024-03-13 13:21] LABS: ALBUMIN 3.9 g/dL (3.5-5.0); ANION GAP 21.8 MEQ/L (5-15); BILIRUBIN,TOTAL 9.3 mg/dL (0.2-1.3); Creatinine 1 2.19 mg/dL (0.66-1.25); EST GLOMERULAR FILTRATION RATE 34.5 ML/MIN; Total Protein 7.2 g/dL (6.3-8.2)
[2024-03-13 13:30] LABS: Potassium 5.2 mmol/L (3.5-5.1)
[2024-03-13] MEDS: FLAGYL 500 MG IVPB 500 MG/100 ML BAG IV SCH (14:12)
--- NOTE | 2024-03-15 12:06 | CONS ---
CONSULT DATE: 03/13/2024 REASON FOR CONSULT: Hyperbilirubinemia with abdominal pain. HISTORY: The patient is very hard to understand. He is writhing around. He is not holding still. He does not have any peritoneal pain. His abdomen is normal size and it is not distended. He is 58 years old. He states that he has been a heavy alcohol abuse and other substance abuse in the past. He did not really want to communicate with me but he is. His chart is reviewed. His bilirubin is up to 8. A little bit of this seems possibly dehydration. His potassium is also up to 6. I think he predominantly has got a cirrhotic picture here. He has a little bit of prerenal disease here and some dehydration. Electrolytes are all going up. His electrolytes are just slightly high. An ultrasound of the abdomen suggest a thickened gallbladder and a little pericholecystic fluid but I think he has chronic symptoms, chronic liver disease and usually you cannot really separate the gallbladder disease out in these people very well. I do not think he has acute gallbladder disease although there is an outside possibility. Bilirubin level of 3 to 3.5, which is gallbladder disease. He does have CT pending. IMPRESSION: I believe he has very substantial cirrhosis. He may have a little encephalopathy now. He almost seems like he is having some abdominal pain on nonsurgical regions almost from electrolyte abnormality/metabolic abnormality where he is writhing around with it. He is very difficult to assess. This is a primary care hospital. In the [facility] there is not much as far as liver specialty. I would suggest he goes to a tertiary care hospital in [place] so he can be seen by a GI liver specialist along with surgery more attuned to these people than we are here.
== END 2024-03-13 14:34 ==
LOC: ED 19:36 → ICU 23:14
PROVIDERS: ADMIT Student in an Organized Health Care Education/Training Program; ATTEND Student in an Organized Health Care Education/Training Program
DX: I48.20 Chronic atrial fibrillation, unspecified (principal); R07.9 Chest pain, unspecified; E78.5 Hyperlipidemia, unspecified; I11.0 Hypertensive heart disease with heart failure; I50.9 Heart failure, unspecified; E11.9 Type 2 diabetes mellitus without complications; F10.21 Alcohol dependence, in remission; R00.0 Tachycardia, unspecified; D72.829 Elevated white blood cell count, unspecified; N17.9 Acute kidney failure, unspecified; E87.20 Acidosis, unspecified; J44.9 Chronic obstructive pulmonary disease, unspecified; I48.92 Unspecified atrial flutter; R17 Unspecified jaundice; Z79.899 Other long term (current) drug therapy
CPT/HCPCS: 36000; 36415; 71045; 74176; 76700; 80053; 80074; 80307; 81001; 82550; 83036; 83605; 83615; 83690; 83735; 83880; 84484; 85025; 87040; 87086; 93005; 93041; 93306; 94640; 96365; 96366; 96372; 96374; 96375; 99285; G0378; Q3014; J1170; J1650; J1956; J2270; J2405; J7609; A9270-GY